=== PATIENT | female | born 1950 | race Caucasian/White ===

== ENCOUNTER → 2017-03-07 | Outpatient (CLI) | payer MEDICARE ==
[2016-01-25 14:30] VITALS: BP 189/72
[~2017-03-07] MED LIST: ACET325T9 PO; ALBU2.5V5 NEB; ALPR0.5T PO; AMLO2.5T2 PO; AZIT250T PO; AZIT500T4 PO; B12/1TAB3 PO; CHOL10003 PO; CLOB15CR TP; CLOT15CR5 TP; CYCL10TA2 PO; DESO15OI3 TP; DICL100G18 TP; DILT120C80 PO; DIPH25CA58 PO; DOCU-109 PO; DOCU50CA9 PO; FAMO-63 PO; FLUT16SP2 NS; FURO-68 PO; GUAI12003 PO; HYDR-2762 PO; HYDR-971 PO; HYDR25TA PO; IPRA3AMP IH; KETO15CR2 TP; MAGN250T10 PO; MELA10CA PO; MONT10TA6 PO; NYST100054 PO; OMEP20CA5 PO; OMEP40CA5 PO; ONDA4TAB7 PO; POTA20TA12 PO; PRED-220 PO; PRED1TAB3 PO; PROAIR HFA8.5 GM IH; SODI44SP NS; TRIA15CR TP
--- NOTE | 2017-03-07 13:10 | KCIC ---
Examination: 2 views of the chest HISTORY: History of fever COMPARISON: 12/11/2015 FINDINGS: The cardiomediastinal silhouette grossly appears unremarkable. Patchy foci of airspace opacities identified in the right upper lobe of the lung.Mild prominent appearing bilateral interstitial lung markings similar to prior exam. Kyphoplasty changes identified in the upper thoracic vertebral level. IMPRESSION: New patchy foci of airspace opacities identified in the right upper lobe of the lung could be pneumonia or atelectasis or atypical infection such as mycobacterial infection or neoplasm. Follow-up to resolution. Electronically signed by: Jim Carson MD (03/07/2017 1:07 PM) [facility]
== END | disposition home or self-care (01) ==
LOC: KCIC 11:44
PROVIDERS: ATTEND Internal Medicine Pulmonary Disease
DX: R91.8 Other nonspecific abnormal finding of lung field (principal); R50.9 Fever, unspecified
CPT/HCPCS: 71020

== ENCOUNTER 2017-03-13 16:52 | Inpatient (IN) | payer MEDICARE ==
[~2017-03-13] VITALS: Ht 160 cm; Wt 93.0 kg
[2017-03-13] MEDS ORDERED: IPRATRPIUM/ALBUTEROL 0.5/2.5MG 3 ML NEBU. NEB ONE (18:00)
[2017-03-13] MEDS ORDERED: IV NORMAL SALINE 500ML BAG 500 ML IV ONE (18:00)
[2017-03-13 18:30] LABS: BASO # 0.1 x10^3/uL (0.0-0.2); BASO % 1 % (0-3); EOS % 6 % (0-3); HEMATOCRIT 39.5 % (36.0-47.0); HEMOGLOBIN 12.7 g/dL (12.0-15.5); LYMPH # 3.2 x10^3/uL (1.0-4.8); LYMPH % 30 % (24-48); MEAN CORPUSCULAR HEMOGLOBIN 26 pg (25-35); MEAN CORPUSCULAR HGB CONC 32 g/dL (31-37); MEAN CORPUSCULAR VOLUME 82 fL (79-100); MONO % 9 % (0-9); NEUT % 54 % (31-73); PLATELET COUNT 532 x10^3/uL (140-400); RED BLOOD COUNT 4.85 x10^6/uL (3.50-5.40); RED CELL DISTRIBUTION WIDTH 14.7 % (11.5-14.5); WHITE BLOOD COUNT 10.7 x10^3/uL (4.0-11.0)
[2017-03-13 18:45] LABS: GFR 55.8; POTASSIUM 3.9 mmol/L (3.5-5.1)
--- NOTE | 2017-03-13 19:06 | PHYS DOC ---
Past Medical History Past Medical History: Anxiety, Arthritis, Asthma, Bronchitis, COPD, Depression , Diabetes-Type II, Fibromyalgia, GERD, Hypertension, Other Additional Past Medical Histor: mood disorder, neuropathy, chronic headache, DJD, chronic back pain, RLS Past Surgical History: Cholecystectomy, Hip Replacement, Tonsillectomy, Tubal ligation, Other Additional Past Surgical Histo: vertebroplasty, knee surgery, hip repair on R, L hip replaced Alcohol Use: None Drug Use: None Adult General Chief Complaint Chief Complaint: SHORTNESS OF BREATH HPI HPI Patient is a 66 year old female presents with complaints of shortness of breath and cough similar to previous episodes of COPD exacerbation. The patient also has a history of asthma is a former smoker. Patient was recently diagnosed with pneumonia. No history of sick contacts. Patient denies any fevers chest pain abdominal pain and neck pain or lower extremity pain or swelling. Review of Systems Review of Systems Constitutional: Denies fever or chills [] HENT: Denies nasal congestion or sore throat [] Respiratory: Yes to cough or shortness of breath [] Cardiovascular: No chest pain GI: Denies abdominal pain, nausea, vomiting, bloody stools or diarrhea [] : Denies dysuria or hematuria [] Musculoskeletal: Denies back pain or joint pain [] Integument: Denies rash or skin lesions [] Neurologic: Denies headache, focal weakness or sensory changes [] All other systems reviewed and found to be negative unless stated otherwise Current Medications Current Medications Current Medications Medications (Trade) Dose Ordered Sig/Sylvester Start Time Stop Time Status Last Admin Dose Admin Albuterol/ Ipratropium (Duoneb) 3 ml 1X ONCE 03/13/17 18:00 03/13/17 18:04 DC 03/13/17 18:12 3 ML Sodium Chloride 500 ml @ 500 mls/hr 1X ONCE 03/13/17 18:00 03/13/17 18:59 DC 03/13/17 18:26 500 MLS/HR Allergies Allergies Allergies Coded Allergies Type Severity Reaction Last Updated Verified Penicillins Allergy Intermediate rash 03/13/17 Yes amoxicillin Allergy Intermediate asthma 03/13/17 Yes carvedilol Allergy Intermediate asthma 03/13/17 Yes cinnamon Allergy Intermediate 03/13/17 Yes clavulanic acid Allergy Intermediate asthma 03/13/17 Yes codeine Allergy Intermediate hallucinations and itching 03/13/17 Yes lemon Allergy Intermediate 03/13/17 No morphine Allergy Intermediate Rash 03/13/17 No olanzapine Allergy Intermediate asthma 03/13/17 Yes perfume Allergy Intermediate 03/13/17 Yes ropinirole Allergy Intermediate asthma 03/13/17 Yes tree nut Allergy Intermediate 03/13/17 Yes doxycycline Adverse Reaction Intermediate nausea 03/13/17 Yes losartan Adverse Reaction Intermediate excessive sleepiness 03/13/17 Yes zolpidem Adverse Reaction Intermediate sleep walking and eating 03/13/17 Yes Uncoded Allergies Type Severity Reaction Last Updated Verified vanilla Allergy Intermediate 02/03/14 Physical Exam Physical Exam Constitutional: Well developed, well nourished, no acute distress, non-toxic appearance. [] HENT: Normocephalic, atraumatic, , oropharynx dry, no oral exudates, nose normal. [] Eyes: EOMI, conjunctiva normal, no discharge. [] Neck: Normal range of motion, no tenderness, supple, no stridor. No LAD, no meningeal signs Cardiovascular: Tachycardia, equal pulses, normal perfusion Lungs & Thorax: Decreased air movement bilaterally, no rales, no rhonchi, no wheezing. Mild tachypnea, mild respiratory distress Abdomen: Bowel sounds normal, soft, no tenderness, no masses, no pulsatile masses. [] Skin: Warm, dry, no erythema, no rash. [] Back: No tenderness, no CVA tenderness. [] Extremities: No tenderness, no cyanosis, no DVT, ROM intact, no edema. [] Neurologic: Alert and oriented X 3, normal motor function, no focal deficits noted. [] Psychologic: Affect normal, judgement normal, mood normal. [] Current Patient Data Vital Signs Vital Signs Date Time Temp Pulse Resp B/P (MAP) Pulse Ox O2 Delivery O2 Flow Rate FiO2 03/13/17 19:05 92 38 137/80 (99) 03/13/17 18:35 94 03/13/17 18:14 Nasal Cannula 3.0 03/13/17 17:00 98.5 98.5 Lab Values Laboratory Tests Test 03/13/17 18:17 White Blood Count 10.7 x10^3/uL (4.0-11.0) Red Blood Count 4.85 x10^6/uL (3.50-5.40) Hemoglobin 12.7 g/dL (12.0-15.5) Hematocrit 39.5 % (36.0-47.0) Mean Corpuscular Volume 82 fL (79-100) Mean Corpuscular Hemoglobin 26 pg (25-35) Mean Corpuscular Hemoglobin Concent 32 g/dL (31-37) Red Cell Distribution Width 14.7 % (11.5-14.5) H Platelet Count 532 x10^3/uL (140-400) H Neutrophils (%) (Auto) 54 % (31-73) Lymphocytes (%) (Auto) 30 % (24-48) Monocytes (%) (Auto) 9 % (0-9) Eosinophils (%) (Auto) 6 % (0-3) H Basophils (%) (Auto) 1 % (0-3) Neutrophils # (Auto) 5.7 x10^3uL (1.8-7.7) Lymphocytes # (Auto) 3.2 x10^3/uL (1.0-4.8) Monocytes # (Auto) 0.9 x10^3/uL (0.0-1.1) Eosinophils # (Auto) 0.7 x10^3/uL (0.0-0.7) Basophils # (Auto) 0.1 x10^3/uL (0.0-0.2) Sodium Level 142 mmol/L (136-145) Potassium Level 3.9 mmol/L (3.5-5.1) Chloride Level 102 mmol/L (98-107) Carbon Dioxide Level 31 mmol/L (21-32) Anion Gap 9 (6-14) Blood Urea Nitrogen 18 mg/dL (7-20) Creatinine 1.0 mg/dL (0.6-1.0) Estimated GFR (Cockcroft-Gault) 55.8 Glucose Level 101 mg/dL (70-99) H Calcium Level 10.0 mg/dL (8.5-10.1) Laboratory Tests 03/13/17 18:17 Laboratory Tests 03/13/17 18:17 EKG EKG [] Radiology/Procedures Radiology/Procedures [] Course & Med Decision Making Course & Med Decision Making Pertinent Labs and Imaging studies reviewed. (See chart for details) Patient feels improved, tachypnea has decrease, patient saturating 96%. Patient' s concerns that she will be able to take her Levaquin for her pneumonia due to vomiting and request as I discussed her presentation with her primary care provider. That was done in the PCP was to admit the patient for observation. [] Dragon Disclaimer Dragon Disclaimer This electronic medical record was generated, in whole or in part, using a voice recognition dictation system. Departure Departure Impression: Primary Impression: Pneumonia Additional Impression: Dehydration Disposition: ADMITTED INPATIENT Admitting Physician: Yimi Carnes Condition: STABLE Referrals: YIMI CARNES MD (PCP) Problem Qualifiers Nahum EVANS MD Mar 13, 2017 19:06
[2017-03-13] MEDS ORDERED: ONDANSETRON PF 4 MG/2 ML VIAL. IV PRN (20:00)
[2017-03-13] MEDS ORDERED: METOCLOPRAMIDE HCL 10 MG/2 ML VIAL. IV ONE (20:00)
[2017-03-13] MEDS ORDERED: IPRATRPIUM/ALBUTEROL 0.5/2.5MG 3 ML NEBU. NEB SCH (20:00)
[2017-03-13] MEDS: ACETAMINOPHEN 325 MG TABLET. PO PRN (20:11)
[2017-03-13 21:00] VITALS: BP_SYST 131; BP_SYST 145; BP_DIAS 49; BP_DIAS 71
[2017-03-13 21:20] VITALS: BP 131/71
[2017-03-13] MEDS ORDERED: NYST100054 PO (22:40)
[2017-03-13] MEDS ORDERED: IPRA0.2S5 NEB (22:40)
[2017-03-13] MEDS ORDERED: VENTOLIN HFA18 GM INH (22:40)
[2017-03-13] MEDS ORDERED: ACET-804 PO (22:40)
[2017-03-13] MEDS ORDERED: GUAI12003 PO (22:40)
[2017-03-13] MEDS ORDERED: MELA3TAB2 PO (22:40)
[2017-03-13 22:59] VITALS: BP 131/59
[2017-03-13] MEDS ORDERED: INFLUENZA VAX SCREEN BY RX. MC ONE (23:00)
[2017-03-14] MEDS ORDERED: IPRA3AMP NEB (01:10)
[2017-03-14] MEDS ORDERED: predniSONE 10 MG TABLET PO PRN (02:30)
[2017-03-14] MEDS ORDERED: CLOTRIMAZOLE/BETAMETH 1%-0.05% TOPICAL CREAM 15GM TUBE. TP PRN (02:30)
[2017-03-14] MEDS ORDERED: HYDROcodone/APAP 7.5/325MG 1 TAB TABLET PO PRN (02:30)
[2017-03-14] MEDS ORDERED: TRIAMCINOLONE ACETONIDE TP PRN (02:30)
[2017-03-14] MEDS ORDERED: CYCLOBENZAPRINE 10 MG TABLET. PO PRN (02:30)
[2017-03-14] MEDS ORDERED: ALBUTEROL SULFATE 2.5 MG/3 ML NEBU. NEB PRN (02:45)
[2017-03-14] MEDS: ALPRAZolam 0.5 MG TABLET PO PRN ×3 (02:58→21:05)
[2017-03-14 03:00] VITALS: BP 130/58
[2017-03-14] MEDS ORDERED: SODIUM CHLORIDE 0.65% NASAL SPRAY 45ML BOTTLE. NS PRN (04:00)
[2017-03-14] MEDS ORDERED: NON FORMULARY ITEM (Albuterol Sulfate (Ventolin Hfa Inhaler) 2 PUFF) INH SCH (04:00)
[2017-03-14 05:44] LABS: BASO # 0.1 x10^3/uL (0.0-0.2); BASO % 2 % (0-3); EOS % 14 % (0-3); HEMATOCRIT 35.3 % (36.0-47.0); HEMOGLOBIN 11.7 g/dL (12.0-15.5); LYMPH # 2.8 x10^3/uL (1.0-4.8); LYMPH % 37 % (24-48); MEAN CORPUSCULAR HEMOGLOBIN 27 pg (25-35); MEAN CORPUSCULAR HGB CONC 33 g/dL (31-37); MEAN CORPUSCULAR VOLUME 80 fL (79-100); MONO % 12 % (0-9); NEUT % 35 % (31-73); PLATELET COUNT 485 x10^3/uL (140-400); RED CELL DISTRIBUTION WIDTH 14.8 % (11.5-14.5); WHITE BLOOD COUNT 7.5 x10^3/uL (4.0-11.0)
[2017-03-14 06:24] LABS: CALCIUM 9.3 mg/dL (8.5-10.1); CREATININE 0.9 mg/dL (0.6-1.0); POTASSIUM 3.4 mmol/L (3.5-5.1)
[2017-03-14 07:00] VITALS: BP 123/80
[2017-03-14] MEDS: IPRATRPIUM/ALBUTEROL 0.5/2.5MG 3 ML NEBU. NEB SCH ×4 (07:36→19:51)
--- NOTE | 2017-03-14 07:38 | RAD ---
EXAM: Chest one view. HISTORY: Chronic obstructive pulmonary disease, shortness of breath. COMPARISON: 03/07/2017. FINDINGS: A frontal view of the chest is obtained. Airspace opacities in the right upper lobe have improved but not completely resolved. Hyperinflation is consistent with chronic obstructive pulmonary disease. Prominence of the right peritracheal stripe is stable. There is no pneumothorax or pleural effusion. The heart is not enlarged. There are atherosclerotic calcifications of the aorta. There is a small hiatal hernia. IMPRESSION: 1. Resolving right upper lobe infiltrates. Prominence of the right peritracheal stripe persists. Follow-up to complete resolution is recommended to exclude an underlying lesion. 2. Chronic obstructive pulmonary disease. 3. Small hiatal hernia.
[2017-03-14] MEDS: AZITHROMYCIN 250 MG TABLET. PO SCH (08:38)
[2017-03-14] MEDS: POTASSIUM CHLORIDE 20 MEQ TABLET.ER. PO SCH (08:38)
[2017-03-14] MEDS: FUROSEMIDE 40 MG TABLET. PO SCH (08:38)
[2017-03-14] MEDS: MONTELUKAST SODIUM 10 MG TABLET. PO SCH (08:38)
[2017-03-14] MEDS: PANTOPRAZOLE 40 MG TABLET.DR. PO SCH (08:38)
[2017-03-14] MEDS: DICLOFENAC SODIUM 1% TOPICAL GEL 100GM TUBE. TP SCH ×4 (08:39→21:00)
[2017-03-14] MEDS: FLUTICASONE 50MCG/NASAL SPRAY 16GM BOTTLE. NS SCH (08:40)
[2017-03-14] MEDS ORDERED: FLU VACC QS2017-18 (36MOS+)/PF 0.5 ML SYRINGE. VAX IM ONE (09:00)
[2017-03-14] MEDS ORDERED: CLOBETASOL EMOLLIENT 0.05% TOPICAL CREAM 15GM TUBE. TP PRN (09:00)
[2017-03-14] MEDS ORDERED: methylPREDNISolone SOD SUCC PF 125 MG/2 ML VIAL. IV ONE (09:15)
[2017-03-14] MEDS: ACETAMINOPHEN 325 MG TABLET. PO PRN ×2 (09:15→15:27)
--- NOTE | 2017-03-14 09:30 | PDOC ---
Infectious Disease Note Vital Sign Vital Signs Vital Signs Date Time Temp Pulse Resp B/P (MAP) Pulse Ox O2 Delivery O2 Flow Rate FiO2 03/14/17 07:42 Nasal Cannula 3.0 03/14/17 07:37 100 03/14/17 07:00 97.6 84 18 123/80 (94) 97.6 Labs Lab Laboratory Tests Test 03/13/17 18:17 03/14/17 05:00 03/14/17 05:30 White Blood Count 10.7 x10^3/uL (4.0-11.0) 7.5 x10^3/uL (4.0-11.0) Red Blood Count 4.85 x10^6/uL (3.50-5.40) 4.40 x10^6/uL (3.50-5.40) Hemoglobin 12.7 g/dL (12.0-15.5) 11.7 g/dL (12.0-15.5) Hematocrit 39.5 % (36.0-47.0) 35.3 % (36.0-47.0) Mean Corpuscular Volume 82 fL (79-100) 80 fL (79-100) Mean Corpuscular Hemoglobin 26 pg (25-35) 27 pg (25-35) Mean Corpuscular Hemoglobin Concent 32 g/dL (31-37) 33 g/dL (31-37) Red Cell Distribution Width 14.7 % (11.5-14.5) 14.8 % (11.5-14.5) Platelet Count 532 x10^3/uL (140-400) 485 x10^3/uL (140-400) Neutrophils (%) (Auto) 54 % (31-73) 35 % (31-73) Lymphocytes (%) (Auto) 30 % (24-48) 37 % (24-48) Monocytes (%) (Auto) 9 % (0-9) 12 % (0-9) Eosinophils (%) (Auto) 6 % (0-3) 14 % (0-3) Basophils (%) (Auto) 1 % (0-3) 2 % (0-3) Neutrophils # (Auto) 5.7 x10^3uL (1.8-7.7) 2.6 x10^3uL (1.8-7.7) Lymphocytes # (Auto) 3.2 x10^3/uL (1.0-4.8) 2.8 x10^3/uL (1.0-4.8) Monocytes # (Auto) 0.9 x10^3/uL (0.0-1.1) 0.9 x10^3/uL (0.0-1.1) Eosinophils # (Auto) 0.7 x10^3/uL (0.0-0.7) 1.0 x10^3/uL (0.0-0.7) Basophils # (Auto) 0.1 x10^3/uL (0.0-0.2) 0.1 x10^3/uL (0.0-0.2) Sodium Level 142 mmol/L (136-145) 144 mmol/L (136-145) Potassium Level 3.9 mmol/L (3.5-5.1) 3.4 mmol/L (3.5-5.1) Chloride Level 102 mmol/L (98-107) 106 mmol/L (98-107) Carbon Dioxide Level 31 mmol/L (21-32) 31 mmol/L (21-32) Anion Gap 9 (6-14) 7 (6-14) Blood Urea Nitrogen 18 mg/dL (7-20) 14 mg/dL (7-20) Creatinine 1.0 mg/dL (0.6-1.0) 0.9 mg/dL (0.6-1.0) Estimated GFR (Cockcroft-Gault) 55.8 63.0 Glucose Level 101 mg/dL (70-99) 101 mg/dL (70-99) Calcium Level 10.0 mg/dL (8.5-10.1) 9.3 mg/dL (8.5-10.1) Objective Assessment Pneumonia Bronchiectasis COPD Asthma Plan Plan of Care amie carlton ct chest sputum culture sputum for afb NADIA MAYNARD MD Mar 14, 2017 09:30
--- NOTE | 2017-03-14 09:36 | PDOC ---
Provider Note Provider Note Patient seen. See History and Physical. The patient was seen and examined by me. Chart reviewed and plan of care formulated. Discussed with, reviewed and agree with SENIOR SQL DBA's notes, plan of care and orders with modifications as necessary. For more details regarding further plans, please refer to the orders. YIMI CARNES MD Mar 14, 2017 09:35
[2017-03-14] MEDS ORDERED: IOHEXOL 300 MG/ML 75 ML VIAL IV ONE (10:15)
[2017-03-14] MEDS ORDERED: CONTRAST GIVEN MC PRN (10:15)
[2017-03-14 11:00] VITALS: BP 130/72
[2017-03-14] MEDS: INSULIN ASPART 300 UNITS/3 ML INSULN.PEN SQ SCH ×2 (11:09→16:50)
--- NOTE | 2017-03-14 11:41 | PDOC ---
PULMONARY PROGRESS NOTES Vitals Vital Signs Date Time Temp Pulse Resp B/P (MAP) Pulse Ox O2 Delivery O2 Flow Rate FiO2 03/14/17 11:00 97.6 79 18 130/72 (91) 96 Nasal Cannula 3.0 97.6 General: Alert, Oriented X4 Lungs: Other Cardiovascular: S1, S2 Abdomen: Soft, Non-tender Extremities: No Edema Labs Laboratory Tests Test 03/13/17 18:17 03/14/17 05:00 03/14/17 05:30 03/14/17 10:22 White Blood Count 10.7 x10^3/uL (4.0-11.0) 7.5 x10^3/uL (4.0-11.0) Red Blood Count 4.85 x10^6/uL (3.50-5.40) 4.40 x10^6/uL (3.50-5.40) Hemoglobin 12.7 g/dL (12.0-15.5) 11.7 g/dL (12.0-15.5) Hematocrit 39.5 % (36.0-47.0) 35.3 % (36.0-47.0) Mean Corpuscular Volume 82 fL (79-100) 80 fL (79-100) Mean Corpuscular Hemoglobin 26 pg (25-35) 27 pg (25-35) Mean Corpuscular Hemoglobin Concent 32 g/dL (31-37) 33 g/dL (31-37) Red Cell Distribution Width 14.7 % (11.5-14.5) 14.8 % (11.5-14.5) Platelet Count 532 x10^3/uL (140-400) 485 x10^3/uL (140-400) Neutrophils (%) (Auto) 54 % (31-73) 35 % (31-73) Lymphocytes (%) (Auto) 30 % (24-48) 37 % (24-48) Monocytes (%) (Auto) 9 % (0-9) 12 % (0-9) Eosinophils (%) (Auto) 6 % (0-3) 14 % (0-3) Basophils (%) (Auto) 1 % (0-3) 2 % (0-3) Neutrophils # (Auto) 5.7 x10^3uL (1.8-7.7) 2.6 x10^3uL (1.8-7.7) Lymphocytes # (Auto) 3.2 x10^3/uL (1.0-4.8) 2.8 x10^3/uL (1.0-4.8) Monocytes # (Auto) 0.9 x10^3/uL (0.0-1.1) 0.9 x10^3/uL (0.0-1.1) Eosinophils # (Auto) 0.7 x10^3/uL (0.0-0.7) 1.0 x10^3/uL (0.0-0.7) Basophils # (Auto) 0.1 x10^3/uL (0.0-0.2) 0.1 x10^3/uL (0.0-0.2) Sodium Level 142 mmol/L (136-145) 144 mmol/L (136-145) Potassium Level 3.9 mmol/L (3.5-5.1) 3.4 mmol/L (3.5-5.1) Chloride Level 102 mmol/L (98-107) 106 mmol/L (98-107) Carbon Dioxide Level 31 mmol/L (21-32) 31 mmol/L (21-32) Anion Gap 9 (6-14) 7 (6-14) Blood Urea Nitrogen 18 mg/dL (7-20) 14 mg/dL (7-20) Creatinine 1.0 mg/dL (0.6-1.0) 0.9 mg/dL (0.6-1.0) Estimated GFR (Cockcroft-Gault) 55.8 63.0 Glucose Level 101 mg/dL (70-99) 101 mg/dL (70-99) Calcium Level 10.0 mg/dL (8.5-10.1) 9.3 mg/dL (8.5-10.1) Glucose (Fingerstick) 94 mg/dL (70-99) Laboratory Tests Test 03/13/17 18:17 03/14/17 05:00 03/14/17 05:30 03/14/17 10:22 White Blood Count 10.7 x10^3/uL (4.0-11.0) 7.5 x10^3/uL (4.0-11.0) Red Blood Count 4.85 x10^6/uL (3.50-5.40) 4.40 x10^6/uL (3.50-5.40) Hemoglobin 12.7 g/dL (12.0-15.5) 11.7 g/dL (12.0-15.5) Hematocrit 39.5 % (36.0-47.0) 35.3 % (36.0-47.0) Mean Corpuscular Volume 82 fL (79-100) 80 fL (79-100) Mean Corpuscular Hemoglobin 26 pg (25-35) 27 pg (25-35) Mean Corpuscular Hemoglobin Concent 32 g/dL (31-37) 33 g/dL (31-37) Red Cell Distribution Width 14.7 % (11.5-14.5) 14.8 % (11.5-14.5) Platelet Count 532 x10^3/uL (140-400) 485 x10^3/uL (140-400) Neutrophils (%) (Auto) 54 % (31-73) 35 % (31-73) Lymphocytes (%) (Auto) 30 % (24-48) 37 % (24-48) Monocytes (%) (Auto) 9 % (0-9) 12 % (0-9) Eosinophils (%) (Auto) 6 % (0-3) 14 % (0-3) Basophils (%) (Auto) 1 % (0-3) 2 % (0-3) Neutrophils # (Auto) 5.7 x10^3uL (1.8-7.7) 2.6 x10^3uL (1.8-7.7) Lymphocytes # (Auto) 3.2 x10^3/uL (1.0-4.8) 2.8 x10^3/uL (1.0-4.8) Monocytes # (Auto) 0.9 x10^3/uL (0.0-1.1) 0.9 x10^3/uL (0.0-1.1) Eosinophils # (Auto) 0.7 x10^3/uL (0.0-0.7) 1.0 x10^3/uL (0.0-0.7) Basophils # (Auto) 0.1 x10^3/uL (0.0-0.2) 0.1 x10^3/uL (0.0-0.2) Sodium Level 142 mmol/L (136-145) 144 mmol/L (136-145) Potassium Level 3.9 mmol/L (3.5-5.1) 3.4 mmol/L (3.5-5.1) Chloride Level 102 mmol/L (98-107) 106 mmol/L (98-107) Carbon Dioxide Level 31 mmol/L (21-32) 31 mmol/L (21-32) Anion Gap 9 (6-14) 7 (6-14) Blood Urea Nitrogen 18 mg/dL (7-20) 14 mg/dL (7-20) Creatinine 1.0 mg/dL (0.6-1.0) 0.9 mg/dL (0.6-1.0) Estimated GFR (Cockcroft-Gault) 55.8 63.0 Glucose Level 101 mg/dL (70-99) 101 mg/dL (70-99) Calcium Level 10.0 mg/dL (8.5-10.1) 9.3 mg/dL (8.5-10.1) Glucose (Fingerstick) 94 mg/dL (70-99) Medications Active Scripts Medications Dose Route/Sig Max Daily Dose Days Date Category Duoneb 0.5-3(2.5) Mg/3 Ml (Albuterol/Ipratropium) 3 Ml Ampul.neb 3 Ml NEB QID 03/14/17 Reported Ventolin Hfa Inhaler (Albuterol Sulfate) 18 Gm Hfa.aer.ad 2 Puff INH Q4HRS 03/13/17 Reported Nystatin 100,000 Unit/1 Ml Oral.susp 100,000 Unit PO 03/13/17 Reported Mucinex (Guaifenesin) 1,200 Mg Tbmp.12hr 1,200 Mg PO PRN BID PRN 03/13/17 Reported Arthritis Pain Relief (Acetaminophen) 650 Mg Tablet.er 650 Mg PO 03/13/17 Reported Melatonin 3 Mg Tablet 10 Mg PO 03/13/17 Reported Hydroxyzine Hcl 25 Mg Tablet 1-2 Tab PO TID 01/24/15 Rx Xanax (Alprazolam) 0.5 Mg Tablet 0.5 Mg PO PRN Q6HRS PRN 01/24/15 Rx Hydrocodone-Apap 7.5-325 (Hydrocodone Bit/Acetaminophen) 1 Each Tablet 1 Tab PO PRN Q6HRS PRN 01/24/15 Rx Zithromax (Azithromycin) 250 Mg Tablet 250 Mg PO DAILY 01/24/15 Rx Pepcid (Famotidine) 20 Mg Tablet 40 Mg PO HS 01/24/15 Rx Omeprazole 40 Mg Capsule.dr 40 Mg PO DAILY 01/24/15 Rx Zofran (Ondansetron Hcl) 4 Mg Tablet 4 Mg PO BID PRN 01/24/15 Rx Voltaren (Diclofenac Sodium) 100 Gm Gel..gram. 1 Gm TP QID 02/02/14 Reported Singulair Tablet (Montelukast Sodium) 10 Mg Tablet 1 Tab PO DAILY 02/02/14 Reported Deep Sea (Sodium Chloride) 44 Ml Kiester 2 Kiester NS Q4HRS 02/02/14 Reported Colace (Docusate Sodium) 100 Mg Capsule 1 Cap PO BID PRN 02/02/14 Reported Flonase (Fluticasone Propionate) 16 Gm Kiester.susp 2 Kiester NS DAILY 02/02/14 Reported Clotrimazole-Betamethasone Crm (Clotrimazole/Betamethasone Dip) 15 Gm Cream..g. 1 Latanya TP PRN PRN 02/02/14 Reported Triamcinolone Acetonide 0.5% Cream (Triamcinolone Acetonide) 15 Gm Cream..g. 1 Latanya TP PRN PRN 02/02/14 Reported Clobetasol Propionate 15 Gm Cream..g. 1 Latanya TP PRN PRN 02/02/14 Reported Prednisone 10 Mg Tablet 10 Mg PO DAILY PRN 02/02/14 Reported Cyclobenzaprine Hcl 10 Mg Tablet 1 Tab PO TID PRN 02/02/14 Reported Lasix (Furosemide) 40 Mg Tablet 1 Tab PO DAILY 02/02/14 Reported Potassium Chloride 20 Meq Tab.er.prt 20 Meq PO DAILY 02/02/14 Reported Impression . FULL NOTE DICTATED PT FAILED OUTPT THERAPY WAS SEEN IN OFFICE TWICE AGREE WITH CURRENT RX CRISTINO KRUGER MD Mar 14, 2017 11:41
--- NOTE | 2017-03-14 11:56 | RAD ---
Examination: CT chest with IV contrast History: History of shortness of breath, lung nodule Comparison: 01/19/2015. Technique: Axial CT images of the chest were performed with IV contrast. Coronal and sagittal reformats were performed. PQRS Compliance Statement: One or more of the following individualized dose reduction techniques were utilized for this examination: 1. Automated exposure control 2. Adjustment of the mA and/or kV according to patient size 3. Use of iterative reconstruction technique Findings: The visualized thyroid gland grossly appears unremarkable. The central airways are patent. Few prominent mediastinal lymph nodes identified with the largest measuring 1.4 cm in the pretracheal region. The heart size grossly appears unremarkable. Coronary artery calcifications identified. Multiple patchy airspace opacities identified in the right upper lobe of the lung. There is a focus of consolidation or mass identified in the right apical lung measuring 3.4 x 2.8 cm. There is another focus of consolidation identified in the right apical lung posteriorly measuring 2.8 cm. Scattered patchy airspace opacities identified in the bilateral lungs involving the right upper lobe, left upper lobe, left lower lobe of the lung likely atelectasis or infiltrate. Few tree-in-bud airspace opacities identified in the peripheral aspect of the right upper, middle and lower lung lobes. No evidence of pleural effusion or pneumothorax. The visualized liver, spleen, adrenals grossly appears unremarkable Cholecystectomy clips are identified. Tiny cysts or cystic lesion identified in the left kidney measuring 3 mm. Compression changes of the midthoracic vertebral bodies with kyphoplasty changes again identified. Impression: 1. Moderate sized foci of of consolidation or less likely mass identified in the right upper lobe of the lung. Differential includes pneumonia or atypical infection or less likely neoplasm Follow-up to resolution. 2. Scattered foci of airspace opacities identified in the right upper lobe, left upper lobe, left lower lobe of the lung with tree-in-bud airspace opacities identified in the right lung could be interstitial changes or atypical infection. 3. Coronary artery calcifications. 4. Mild prominent appearing mediastinal lymph nodes probably reactive.
[2017-03-14] MEDS ORDERED: methylPREDNISolone SOD SUCC PF 125 MG/2 ML VIAL. IV SCH (14:00)
[2017-03-14 15:00] VITALS: BP 106/64
[2017-03-14] MEDS: ONDANSETRON PF 4 MG/2 ML VIAL. IV PRN ×2 (15:27→21:04)
--- NOTE | 2017-03-14 16:05 | PDOC1 ---
HISTORY AND PHYSICAL Chief Complaint Chief Complaint This 66 year old female has been admitted with a chief complaint of pneumonia. She was seen in Dr. Nunez on 03/05 (as reported on 03/11 to this PROTECTION AGENT ) and then presented to the office on 03/11/17. She reported that Dr. Nunez was treating her for pneumonia and she did not know whether to take augmentin or levaquin. Review of her allergies: levaquin n/v. A trial of Levaquin 500mg oral for 7 days was ordered. Her WPFs were averaging between 160-250. Cough was productive yellow. She was experiencing SOA acute on chronic despite Sats >90%. In addition she was to continue her nebulizer treatments QID and prn. Begin Mucinex 1200mg bid. She contacted the office on 03/12/17 with report of severe n /v with levaquin. Attempts to contact her=did not answer phone. in office for appt and instructed him to take Lily to [facility] for evaluation. [facility] was advised of out patient treatment failure. She contacted this PROTECTION AGENT on 03/13/17 and reported she did not want to be admitted and that she thought she was tolerating the Levaquin better. She then presented to the ED later through the day. She is admitted for out patient treatment failure for pneumonia. . Past Medical History Cardiovascular: HTN, Hyperlipidemia Pulmonary: Asthma, COPD (chronic respiratory failure O2 dependent), Other (h/o pulmonary nodule follow by CT regularly ) CENTRAL NERVOUS SYSTEM: Other GI: GERD, Other (gastroparesis, HH ) Psych: Anxiety, Bipolar (BiPolar I ), Depression Musculoskeletal: Other (mensical tear : R lagteral and R medial knee; CT syndrome, chronic back pain with h/o compression fracture and vertebroplasty; DDD ) Rheumatologic: Fibromyalgia Renal/: Chronic renal insuff (CKD II ) Endocrine: Diabetes (Type II diet control), Osteoporosis Past Surgical History PSH vertebroplasty T6 Past Surgical History: Breast Biopsy (2007 neg), Cholecystectomy, Total hip replacement (Left), Total knee replacement (May 2011), Tubal Ligation, Tonsillectomy (adenoidectomy ) Past Family History Family History: Coronary Artery Disease Past Social History PSH , h/o smoking quit 2005 neg ETOH or illicit drug use. Review of Symptoms Review of Symptoms A 14 point ROS was completed with the following noted as positive: cough, shortness of breath with WPF 150 in ED, wheezing, Other systems reviewed and negative. Medications Medications reviewed and reconciled. Allergy Allergies Coded Allergies Type Severity Reaction Last Updated Verified Penicillins Allergy Intermediate rash 03/13/17 Yes amoxicillin Allergy Intermediate asthma 03/13/17 Yes carvedilol Allergy Intermediate asthma 03/13/17 Yes cinnamon Allergy Intermediate 03/13/17 Yes clavulanic acid Allergy Intermediate asthma 03/13/17 Yes codeine Allergy Intermediate hallucinations and itching 03/13/17 Yes lemon Allergy Intermediate 03/13/17 No morphine Allergy Intermediate Rash 03/13/17 No olanzapine Allergy Intermediate asthma 03/13/17 Yes perfume Allergy Intermediate 03/13/17 Yes ropinirole Allergy Intermediate asthma 03/13/17 Yes tree nut Allergy Intermediate 03/13/17 Yes doxycycline Adverse Reaction Intermediate nausea 03/13/17 Yes losartan Adverse Reaction Intermediate excessive sleepiness 03/13/17 Yes zolpidem Adverse Reaction Intermediate sleep walking and eating 03/13/17 Yes Uncoded Allergies Type Severity Reaction Last Updated Verified vanilla Allergy Intermediate 02/03/14 Physical Exam Physical Exam General appearance - alert ill appearing, and in mod distress Mental Status - alert, oriented to person, place, and time, moderate distress Head - normal Chest - decreased through out, coarse R ant, SOA with movement in bed, talking Heart - S1 and S2 normal Abdomen - soft, nontender, nondistended, obese, BS + Neurological - no acute focal neurological deficits Musculoskeletal - no muscular tenderness noted Extremities - no pedal edema Skin - warm and dry VTE Prophylaxis Ordered VTE Prophylaxis Devices: Yes VTE Pharmacological Prophylaxi: No Assessment Labs Laboratory Tests Test 03/13/17 18:17 03/14/17 05:00 03/14/17 05:30 03/14/17 10:22 White Blood Count 10.7 x10^3/uL (4.0-11.0) 7.5 x10^3/uL (4.0-11.0) Red Blood Count 4.85 x10^6/uL (3.50-5.40) 4.40 x10^6/uL (3.50-5.40) Hemoglobin 12.7 g/dL (12.0-15.5) 11.7 g/dL (12.0-15.5) Hematocrit 39.5 % (36.0-47.0) 35.3 % (36.0-47.0) Mean Corpuscular Volume 82 fL (79-100) 80 fL (79-100) Mean Corpuscular Hemoglobin 26 pg (25-35) 27 pg (25-35) Mean Corpuscular Hemoglobin Concent 32 g/dL (31-37) 33 g/dL (31-37) Red Cell Distribution Width 14.7 % (11.5-14.5) 14.8 % (11.5-14.5) Platelet Count 532 x10^3/uL (140-400) 485 x10^3/uL (140-400) Neutrophils (%) (Auto) 54 % (31-73) 35 % (31-73) Lymphocytes (%) (Auto) 30 % (24-48) 37 % (24-48) Monocytes (%) (Auto) 9 % (0-9) 12 % (0-9) Eosinophils (%) (Auto) 6 % (0-3) 14 % (0-3) Basophils (%) (Auto) 1 % (0-3) 2 % (0-3) Neutrophils # (Auto) 5.7 x10^3uL (1.8-7.7) 2.6 x10^3uL (1.8-7.7) Lymphocytes # (Auto) 3.2 x10^3/uL (1.0-4.8) 2.8 x10^3/uL (1.0-4.8) Monocytes # (Auto) 0.9 x10^3/uL (0.0-1.1) 0.9 x10^3/uL (0.0-1.1) Eosinophils # (Auto) 0.7 x10^3/uL (0.0-0.7) 1.0 x10^3/uL (0.0-0.7) Basophils # (Auto) 0.1 x10^3/uL (0.0-0.2) 0.1 x10^3/uL (0.0-0.2) Sodium Level 142 mmol/L (136-145) 144 mmol/L (136-145) Potassium Level 3.9 mmol/L (3.5-5.1) 3.4 mmol/L (3.5-5.1) Chloride Level 102 mmol/L (98-107) 106 mmol/L (98-107) Carbon Dioxide Level 31 mmol/L (21-32) 31 mmol/L (21-32) Anion Gap 9 (6-14) 7 (6-14) Blood Urea Nitrogen 18 mg/dL (7-20) 14 mg/dL (7-20) Creatinine 1.0 mg/dL (0.6-1.0) 0.9 mg/dL (0.6-1.0) Estimated GFR (Cockcroft-Gault) 55.8 63.0 Glucose Level 101 mg/dL (70-99) 101 mg/dL (70-99) Calcium Level 10.0 mg/dL (8.5-10.1) 9.3 mg/dL (8.5-10.1) Glucose (Fingerstick) 94 mg/dL (70-99) Laboratory Tests Test 03/13/17 18:17 03/14/17 05:00 03/14/17 05:30 03/14/17 10:22 White Blood Count 10.7 x10^3/uL (4.0-11.0) 7.5 x10^3/uL (4.0-11.0) Red Blood Count 4.85 x10^6/uL (3.50-5.40) 4.40 x10^6/uL (3.50-5.40) Hemoglobin 12.7 g/dL (12.0-15.5) 11.7 g/dL (12.0-15.5) Hematocrit 39.5 % (36.0-47.0) 35.3 % (36.0-47.0) Mean Corpuscular Volume 82 fL (79-100) 80 fL (79-100) Mean Corpuscular Hemoglobin 26 pg (25-35) 27 pg (25-35) Mean Corpuscular Hemoglobin Concent 32 g/dL (31-37) 33 g/dL (31-37) Red Cell Distribution Width 14.7 % (11.5-14.5) 14.8 % (11.5-14.5) Platelet Count 532 x10^3/uL (140-400) 485 x10^3/uL (140-400) Neutrophils (%) (Auto) 54 % (31-73) 35 % (31-73) Lymphocytes (%) (Auto) 30 % (24-48) 37 % (24-48) Monocytes (%) (Auto) 9 % (0-9) 12 % (0-9) Eosinophils (%) (Auto) 6 % (0-3) 14 % (0-3) Basophils (%) (Auto) 1 % (0-3) 2 % (0-3) Neutrophils # (Auto) 5.7 x10^3uL (1.8-7.7) 2.6 x10^3uL (1.8-7.7) Lymphocytes # (Auto) 3.2 x10^3/uL (1.0-4.8) 2.8 x10^3/uL (1.0-4.8) Monocytes # (Auto) 0.9 x10^3/uL (0.0-1.1) 0.9 x10^3/uL (0.0-1.1) Eosinophils # (Auto) 0.7 x10^3/uL (0.0-0.7) 1.0 x10^3/uL (0.0-0.7) Basophils # (Auto) 0.1 x10^3/uL (0.0-0.2) 0.1 x10^3/uL (0.0-0.2) Sodium Level 142 mmol/L (136-145) 144 mmol/L (136-145) Potassium Level 3.9 mmol/L (3.5-5.1) 3.4 mmol/L (3.5-5.1) Chloride Level 102 mmol/L (98-107) 106 mmol/L (98-107) Carbon Dioxide Level 31 mmol/L (21-32) 31 mmol/L (21-32) Anion Gap 9 (6-14) 7 (6-14) Blood Urea Nitrogen 18 mg/dL (7-20) 14 mg/dL (7-20) Creatinine 1.0 mg/dL (0.6-1.0) 0.9 mg/dL (0.6-1.0) Estimated GFR (Cockcroft-Gault) 55.8 63.0 Glucose Level 101 mg/dL (70-99) 101 mg/dL (70-99) Calcium Level 10.0 mg/dL (8.5-10.1) 9.3 mg/dL (8.5-10.1) Glucose (Fingerstick) 94 mg/dL (70-99) Plan Plan 1. pneumonia gram neg gram + presentation out patient treatment failure 2. COPD with exacerbation 3. GERD 4. A/C respiratory failure with COPD, asthma, oxygen dependent 5. hypokalemia 6. hyperlipidemia 7. Bipolar I disorder 8. chronic carpal tunnel syndrome 9. DM II diet control 10. fibromyalgia 11. gastroparesis 12. Hiatal Hernia 13. osteoporosis 14. allergic rhinitis 15. DDD LS 16. depression PLAN: pneumonia- pulmonary consult; ID consult: rocephin-zithromax; nebulizer treatment; mucinex 1200mg bid; COPD/asthma exacerbation -IV solumedrol 125mgx 1, then 80mg IV q8hr DM II-SSI for potential hyperglcemia steroid induced DVT/GI prophylaxis -SCD/PPI For more details regarding further plans, please refer to the orders. NEENA FABIAN APRN Mar 14, 2017 16:05
[2017-03-14] MEDS ORDERED: METOCLOPRAMIDE HCL 10 MG/2 ML VIAL. IV PRN (16:30)
[2017-03-14] MEDS ORDERED: MAG HYDROX/ALUMINUM HYD/SIMETH 30 ML ORAL.SUSP PO PRN (16:30)
[2017-03-14 19:00] VITALS: BP 144/89
[2017-03-14 23:00] VITALS: BP 143/70
--- NOTE | 2017-03-15 02:49 | CONS ---
DATE OF CONSULTATION: 03/14/2017 REQUESTING PHYSICIAN: Dr. Samuel. REASON FOR CONSULTATION: Pneumonia and multiple antibiotic allergies. HISTORY OF PRESENT ILLNESS: This is a 66-year-old female with a history of bronchiectasis who was actually diagnosed outpatient with pneumonia. The patient had difficulty picking antibiotics because of multiple allergies, although Levaquin was tried, which has caused vomiting in the past and she took 2 doses and started vomiting. Hence, she came in. The patient is currently comfortable. The patient has had low-grade fever, she says. She always coughs and coughs a lot and produces sputum, but this time right now, she is not able to produce any. The patient denies any nausea, vomiting, diarrhea, chest pain, shortness of breath, abdominal pain, urinary symptoms or bowel symptoms. PAST MEDICAL AND SURGICAL HISTORY: Positive for bronchiectasis. The patient also has asthma, bronchitis, COPD, diabetes, gastroesophageal reflux disease, hypertension, fibromyalgia, neuropathy, chronic back problems, chronic headaches, has had vertebroplasty, knee surgery, hip repair done and placement done. SOCIAL HISTORY: Negative for smoking. She quit about 2005. No alcohol use or drug use. ALLERGIES: SHE IS LISTED ALLERGIC TO PENICILLIN, AMOXICILLIN, DOXYCYCLINE. She is not even sure what happened with penicillin or amoxicillin. REVIEW OF SYSTEMS: As per HPI, all other systems reviewed are negative. CURRENT MEDICATIONS: The patient is on azithromycin as a chronic suppressive for a long time. PHYSICAL EXAMINATION: GENERAL: Alert, oriented female, not in distress. VITAL SIGNS: Stable, afebrile. HEENT: NAD. NECK: Supple, no JVP, no lymphadenopathy. LUNGS: Clear. HEART: S1, S2 regular. ABDOMEN: Benign. EXTREMITIES: No edema or cyanosis. SKIN: Unremarkable. NEUROLOGIC: The patient is neurologically intact. LABORATORY DATA: White count is 7.5, BUN and creatinine are normal. Urinalysis is unremarkable. MRSA screen is negative, that is old. Chest x-ray showed right upper lobe infiltrate. IMPRESSION: 1. Right upper lobe infiltrate/community-acquired pneumonia. 2. Bronchiectasis. 3. Chronic obstructive pulmonary disease. 4. Fibromyalgia. RECOMMEND: We will get CT of the chest. The patient's last CT had nodules in the lung and that was done a long time ago in 2014. There is also a possibility that she has pulmonary ____, although this infiltrate is a new infiltrate, so this is a superimposed pneumonia. RECOMMENDATION: Would get CT chest, sputum for regular culture as well as sputum for AFB culture. Add Rocephin, supportive care and we will continue to follow. Thank you very much, Dr. Samuel, for giving me the opportunity to participate in this patient's care. NADIA MAYNARD MD DR: SANIA/monica JOB#: [id number] / [id number]
[2017-03-15 03:00] VITALS: BP 129/71
[2017-03-15 03:12] LABS: BILIRUBIN,URINE NEGATIVE (NEG); GLUCOSE,URINE NEGATIVE (NEG); NITRITE,URINE NEGATIVE (NEG); PH,URINE 7.5; PROTEIN,URINE NEGATIVE (NEG-TRACE); UROBILINOGEN,URINE 0.2 mg/dL (0.2 mg/dL)
--- NOTE | 2017-03-15 03:13 | CONS ---
DATE OF CONSULTATION: 03/14/2017 ATTENDING PHYSICIAN: Dr. Yony Samuel. REASON FOR CONSULTATION: The patient seen in pulmonary consultation at the request of Dr. Samuel for pneumonia, patient failed outpatient treatment. She was seen in my office earlier last week. HISTORY OF PRESENT ILLNESS: The patient is a 66-year-old that is well known to me from previous hospitalization. She has chronic COPD with a chronic bronchitic type. She has done well with Zithromax on daily basis with anti-inflammatory properties. She has had recurrent bouts of acute exacerbation. She came in last week to the office and was having increasing shortness of breath, low grade fever of 99. Chest x-ray was obtained, which revealed a new infiltrate in the right lower lobe. She was placed on antibiotics. She is allergic to multiple antibiotics including PENICILLIN AND AMOXICILLIN. I spoke with her and we placed her on Levaquin. She called back and stated that it was too expensive. She then was prescribed Augmentin. The patient presented to the Emergency Room with continued low grade fever, low energy level, cough mostly productive of discolored sputum. As a consequence of failing outpatient therapy, she was admitted. PAST MEDICAL AND SURGICAL HISTORY: As indicated above, COPD with a chronic bronchitic type along with an asthma component, recurrent bouts of acute exacerbation on a regular basis. She also has a history of anxiety, degenerative joint disease, restless legs syndrome, hypertension, congestive heart failure, chronic respiratory failure, on oxygen supplementation; esophagitis., cholecystectomy in the past. She had breast biopsy negative for malignancy in 2007. She has had previous vertebroplasty, left hip replacement, right hip repair. She has some compression fractures. She also suffers from affective disorder, bipolar disease and anxiety. ALLERGIES: Multiple allergies see the list. FAMILY HISTORY: Noncontributory in this age group. SOCIAL HISTORY: She quit tobacco many years ago. Denies any excessive alcohol intake. REVIEW OF SYSTEMS: As indicated above, otherwise, a 10-point system was reviewed and negative. PHYSICAL EXAMINATION: VITAL SIGNS: The patient was in no significant respiratory distress, 3 L of oxygen supplementation, saturation greater than 92%. T-max was 98.5. HEENT: Eyes, the sclerae were nonicteric. NECK: Jugular venous distention was not elevated. No lymphadenopathy. CHEST: Full expansion. LUNGS: Rales in the right base. No wheezes. CARDIOVASCULAR: Regular rate and rhythm with S1, S2, no S3. ABDOMEN: Soft, nontender, nondistended. EXTREMITIES: No clubbing, cyanosis or edema. NEUROLOGIC: The patient was awake, alert, following commands. A detailed neuro exam was not performed. IMPRESSION: 1. Acute on chronic respiratory failure secondary to pneumonia. 2. Acute exacerbation. 3. Suspect gram-negative, gram-positive pneumonia. 4. Abnormal chest x-ray. 5. Bipolar disorder. 6. Hypertension. 7. Restless legs syndrome. PLAN: 1. The patient has been seen in consultation by the Infectious Disease Service, she failed outpatient therapy. Continue current antibiotics. 2. CT chest to better delineate the right lower lobe infiltrate. 3. Continue oxygen supplementation. 4. Nebulized treatments. 5. DVT prophylaxis. I do appreciate the privilege in sharing in the patient's care. CRISTINO KRUGER MD DR: NIDHI/monica JOB#: [id number] / [id number]
[2017-03-15 03:19] LABS: BACTERIA,URINE 0 /HPF (0-FEW); RBC,URINE 0 /HPF (0-2); SQUAMOUS EPITHELIAL CELL,UR FEW /LPF; WBC,URINE 0 /HPF (0-4)
[2017-03-15 05:07] LABS: BASO % 0 % (0-3); EOS % 0 % (0-3); HEMATOCRIT 37.6 % (36.0-47.0); HEMOGLOBIN 11.8 g/dL (12.0-15.5); LYMPH # 1.8 x10^3/uL (1.0-4.8); LYMPH % 15 % (24-48); MEAN CORPUSCULAR HEMOGLOBIN 26 pg (25-35); MEAN CORPUSCULAR HGB CONC 32 g/dL (31-37); MEAN CORPUSCULAR VOLUME 83 fL (79-100); MONO % 7 % (0-9); NEUT % 78 % (31-73); PLATELET COUNT 464 x10^3/uL (140-400); RED BLOOD COUNT 4.53 x10^6/uL (3.50-5.40); RED CELL DISTRIBUTION WIDTH 14.7 % (11.5-14.5); WHITE BLOOD COUNT 12.2 x10^3/uL (4.0-11.0)
[2017-03-15 05:15] LABS: ALBUMIN 3.3 g/dL (3.4-5.0); ALBUMIN/GLOBULIN RATIO 0.8 (1.0-1.7); CALCIUM 9.8 mg/dL (8.5-10.1); CREATININE 0.8 mg/dL (0.6-1.0); GFR 72.2; POTASSIUM 4.1 mmol/L (3.5-5.1); TOTAL BILIRUBIN 0.2 mg/dL (0.2-1.0); TOTAL PROTEIN 7.5 g/dL (6.4-8.2)
[2017-03-15] MEDS: IPRATRPIUM/ALBUTEROL 0.5/2.5MG 3 ML NEBU. NEB SCH ×4 (06:11→19:31)
[2017-03-15 07:00] VITALS: BP 124/76
[2017-03-15] MEDS: ALBUTEROL SULFATE 2.5 MG/3 ML NEBU. NEB PRN (07:37)
--- NOTE | 2017-03-15 07:55 | PDOC ---
Infectious Disease Note Subjective Subjective Better with steroids. Constipated nausea and reflux ROS ROS GEN: Denies fevers, chills, sweats HEENT: Denies blurred vision, sore throat CV: Denies chest pain NEURO: Denies confusion, dizziness MSK: Denies weakness, joint pain/swelling Vital Sign Vital Signs Vital Signs Date Time Temp Pulse Resp B/P (MAP) Pulse Ox O2 Delivery O2 Flow Rate FiO2 03/15/17 07:39 95 Nasal Cannula 3.0 03/15/17 03:00 97.4 87 18 129/71 (90) 97.4 Physical Exam PHYSICAL EXAM GENERAL: NAD, Alert HEENT: PERRL, OC/OP- clear NECK: Supple, no JVD, no LN LUNGS: Clear HEART: S1S2, no gallop, no murmur ABD: Soft, NT, no organomegaly, no rebound EXT: No edema, no cyanosis OPERATIONS MANAGEMENT TRAINEE: Alert, oriented x 3, no focal neurologic deficit SKIN: No rash IV: ok Labs Lab Laboratory Tests Test 03/14/17 10:22 03/14/17 16:23 03/14/17 20:16 03/15/17 00:15 Glucose (Fingerstick) 94 mg/dL (70-99) 211 mg/dL (70-99) 146 mg/dL (70-99) Urine Collection Type Unknown Urine Color Yellow Urine Clarity Clear Urine pH 7.5 Urine Specific [place] >=1.030 Urine Protein Negative mg/dL (NEG-TRACE) Urine Glucose (UA) Negative mg/dL (NEG) Urine Ketones (Stick) Negative mg/dL (NEG) Urine Blood Negative (NEG) Urine Nitrite Negative (NEG) Urine Bilirubin Negative (NEG) Urine Urobilinogen Dipstick 0.2 mg/dL (0.2 mg/dL) Urine Leukocyte Esterase Negative (NEG) Urine RBC 0 /HPF (0-2) Urine WBC 0 /HPF (0-4) Urine Squamous Epithelial Cells Few /LPF Urine Bacteria 0 /HPF (0-FEW) Urine Mucus Slight /LPF Test 03/15/17 04:05 White Blood Count 12.2 x10^3/uL (4.0-11.0) Red Blood Count 4.53 x10^6/uL (3.50-5.40) Hemoglobin 11.8 g/dL (12.0-15.5) Hematocrit 37.6 % (36.0-47.0) Mean Corpuscular Volume 83 fL (79-100) Mean Corpuscular Hemoglobin 26 pg (25-35) Mean Corpuscular Hemoglobin Concent 32 g/dL (31-37) Red Cell Distribution Width 14.7 % (11.5-14.5) Platelet Count 464 x10^3/uL (140-400) Neutrophils (%) (Auto) 78 % (31-73) Lymphocytes (%) (Auto) 15 % (24-48) Monocytes (%) (Auto) 7 % (0-9) Eosinophils (%) (Auto) 0 % (0-3) Basophils (%) (Auto) 0 % (0-3) Neutrophils # (Auto) 9.5 x10^3uL (1.8-7.7) Lymphocytes # (Auto) 1.8 x10^3/uL (1.0-4.8) Monocytes # (Auto) 0.9 x10^3/uL (0.0-1.1) Eosinophils # (Auto) 0.0 x10^3/uL (0.0-0.7) Basophils # (Auto) 0.0 x10^3/uL (0.0-0.2) Sodium Level 143 mmol/L (136-145) Potassium Level 4.1 mmol/L (3.5-5.1) Chloride Level 106 mmol/L (98-107) Carbon Dioxide Level 31 mmol/L (21-32) Anion Gap 6 (6-14) Blood Urea Nitrogen 15 mg/dL (7-20) Creatinine 0.8 mg/dL (0.6-1.0) Estimated GFR (Cockcroft-Gault) 72.2 BUN/Creatinine Ratio 19 (6-20) Glucose Level 145 mg/dL (70-99) Calcium Level 9.8 mg/dL (8.5-10.1) Total Bilirubin 0.2 mg/dL (0.2-1.0) Aspartate Amino Transf (AST/SGOT) 32 U/L (15-37) Alanine Aminotransferase (ALT/SGPT) 51 U/L (14-59) Alkaline Phosphatase 79 U/L (46-116) Total Protein 7.5 g/dL (6.4-8.2) Albumin 3.3 g/dL (3.4-5.0) Albumin/Globulin Ratio 0.8 (1.0-1.7) Micro CT chest Impression: 1. Moderate sized foci of of consolidation or less likely mass identified in the right upper lobe of the lung. Differential includes pneumonia or atypical infection or less likely neoplasm Follow-up to resolution. 2. Scattered foci of airspace opacities identified in the right upper lobe, left upper lobe, left lower lobe of the lung with tree-in-bud airspace opacities identified in the right lung could be interstitial changes or atypical infection. 3. Coronary artery calcifications. 4. Mild prominent appearing mediastinal lymph nodes probably reactive. Objective Assessment Pneumonia Bronchiectasis COPD Asthma constipation Plan Plan of Care Cont rocephin/azithro miralax sputum culture sputum for afb KELVIN SAN MD Mar 15, 2017 07:55
[2017-03-15] MEDS: INSULIN ASPART 300 UNITS/3 ML INSULN.PEN SQ SCH ×3 (10:13→17:29)
[2017-03-15] MEDS: PANTOPRAZOLE 40 MG TABLET.DR. PO SCH (10:13)
[2017-03-15] MEDS: methylPREDNISolone SOD SUCC PF 125 MG/2 ML VIAL. IV SCH (10:15)
[2017-03-15] MEDS: POTASSIUM CHLORIDE 20 MEQ TABLET.ER. PO SCH (10:15)
[2017-03-15] MEDS: FUROSEMIDE 40 MG TABLET. PO SCH (10:16)
[2017-03-15] MEDS: POLYETHYLENE GLYCOL 3350 17 GM PACKET. PO SCH (10:16)
[2017-03-15] MEDS: MONTELUKAST SODIUM 10 MG TABLET. PO SCH (10:17)
[2017-03-15] MEDS: AZITHROMYCIN 250 MG TABLET. PO SCH (10:17)
[2017-03-15] MEDS: FLUTICASONE 50MCG/NASAL SPRAY 16GM BOTTLE. NS SCH (10:28)
[2017-03-15] MEDS: DICLOFENAC SODIUM 1% TOPICAL GEL 100GM TUBE. TP SCH ×4 (10:29→20:52)
[2017-03-15] MEDS: ALPRAZolam 0.5 MG TABLET PO PRN (10:30)
[2017-03-15 11:00] VITALS: BP 147/89
[2017-03-15] MEDS: BUDESONIDE 0.5 MG/2 ML NEBU. NEB SCH ×2 (11:00→19:31)
--- NOTE | 2017-03-15 11:13 | PDOC ---
PROGRESS NOTES Subjective Subjective seeing for dr heath, feeling better today Objective Objective Vital Signs Date Time Temp Pulse Resp B/P (MAP) Pulse Ox O2 Delivery O2 Flow Rate FiO2 03/15/17 11:00 97.7 88 19 147/89 (108) 96 Nasal Cannula 97.7 03/15/17 10:55 3.0 Physical Exam Abdomen: Normal bowel sounds, Soft Heart: Regular rate, Normal S1, Normal S2 Extremities: No clubbing General: Oriented X3 HEENT: Atraumatic Lungs: Normal air movement MUSCULOSKELETAL: No swelling, Osteoarthritic changes both hands Neck: Supple Neuro: Normal speech Psych/Mental Status: Mental status NL Skin: No breakdown Assessment Assessment Assessment Pneumonia rt upper lobe Bronchiectasis COPD Asthma constipation Plan Plan of Care ct scan reviewed. wbc 12. breathing treatments Cont rocephin/azithro miralax sputum culture sputum for afb Problems: Comment Review of Relevant I have reviewed the following items jabier (where applicable) has been applied. Labs Laboratory Tests Test 03/14/17 16:23 03/14/17 20:16 03/15/17 00:15 03/15/17 04:05 Glucose (Fingerstick) 211 mg/dL (70-99) 146 mg/dL (70-99) Urine Collection Type Unknown Urine Color Yellow Urine Clarity Clear Urine pH 7.5 Urine Specific [place] >=1.030 Urine Protein Negative mg/dL (NEG-TRACE) Urine Glucose (UA) Negative mg/dL (NEG) Urine Ketones (Stick) Negative mg/dL (NEG) Urine Blood Negative (NEG) Urine Nitrite Negative (NEG) Urine Bilirubin Negative (NEG) Urine Urobilinogen Dipstick 0.2 mg/dL (0.2 mg/dL) Urine Leukocyte Esterase Negative (NEG) Urine RBC 0 /HPF (0-2) Urine WBC 0 /HPF (0-4) Urine Squamous Epithelial Cells Few /LPF Urine Bacteria 0 /HPF (0-FEW) Urine Mucus Slight /LPF White Blood Count 12.2 x10^3/uL (4.0-11.0) Red Blood Count 4.53 x10^6/uL (3.50-5.40) Hemoglobin 11.8 g/dL (12.0-15.5) Hematocrit 37.6 % (36.0-47.0) Mean Corpuscular Volume 83 fL (79-100) Mean Corpuscular Hemoglobin 26 pg (25-35) Mean Corpuscular Hemoglobin Concent 32 g/dL (31-37) Red Cell Distribution Width 14.7 % (11.5-14.5) Platelet Count 464 x10^3/uL (140-400) Neutrophils (%) (Auto) 78 % (31-73) Lymphocytes (%) (Auto) 15 % (24-48) Monocytes (%) (Auto) 7 % (0-9) Eosinophils (%) (Auto) 0 % (0-3) Basophils (%) (Auto) 0 % (0-3) Neutrophils # (Auto) 9.5 x10^3uL (1.8-7.7) Lymphocytes # (Auto) 1.8 x10^3/uL (1.0-4.8) Monocytes # (Auto) 0.9 x10^3/uL (0.0-1.1) Eosinophils # (Auto) 0.0 x10^3/uL (0.0-0.7) Basophils # (Auto) 0.0 x10^3/uL (0.0-0.2) Sodium Level 143 mmol/L (136-145) Potassium Level 4.1 mmol/L (3.5-5.1) Chloride Level 106 mmol/L (98-107) Carbon Dioxide Level 31 mmol/L (21-32) Anion Gap 6 (6-14) Blood Urea Nitrogen 15 mg/dL (7-20) Creatinine 0.8 mg/dL (0.6-1.0) Estimated GFR (Cockcroft-Gault) 72.2 BUN/Creatinine Ratio 19 (6-20) Glucose Level 145 mg/dL (70-99) Calcium Level 9.8 mg/dL (8.5-10.1) Total Bilirubin 0.2 mg/dL (0.2-1.0) Aspartate Amino Transf (AST/SGOT) 32 U/L (15-37) Alanine Aminotransferase (ALT/SGPT) 51 U/L (14-59) Alkaline Phosphatase 79 U/L (46-116) Total Protein 7.5 g/dL (6.4-8.2) Albumin 3.3 g/dL (3.4-5.0) Albumin/Globulin Ratio 0.8 (1.0-1.7) Test 03/15/17 07:18 Glucose (Fingerstick) 88 mg/dL (70-99) Medications Current Medications Al Hydroxide/Mg Hydroxide (Mylanta Plus Xs) 30 ml PRN Q2HR PRN PO HEARTBURN / GAS Last administered on 03/14/17 16:45; Start 03/14/17 at 16:30 Budesonide (Pulmicort) 0.5 mg RTBID NEB ; Start 03/15/17 at 11:00 Insulin Aspart (NovoLOG) TIDAC SQ Last administered on 03/14/17 16:50; Start 03/14/17 at 11:30 Methylprednisolone Sodium Succinate (SOLU-Medrol 125MG VIAL) 80 mg DAILY IV Last administered on 03/15/17 10:15; Start 03/15/17 at 09:00 Methylprednisolone Sodium Succinate (SOLU-Medrol 125MG VIAL) 80 mg Q8HRS IV ; Start 03/14/17 at 14:00; Stop 03/14/17 at 14:00; Status DC Metoclopramide HCl (Reglan) 10 mg PRN Q6HRS PRN IV NAUSEA/VOMITING; Start 03/14 at 16:30 Polyethylene Glycol (miraLAX PACKET) 17 gm DAILY PO Last administered on 10:16; Start 03/15/17 at 09:00 Vitals/I & O Vital Sign - Last 24 Hours 03/14/17 03/14/17 03/14/17 03/14/17 11:36 15:00 15:01 19:00 Temp 98.6 98.1 98.6 98.1 Pulse 97 83 Resp 18 19 B/P (MAP) 106/64 (78) 144/89 (107) Pulse Ox 98 95 96 O2 Delivery Nasal Cannula Nasal Cannula Nasal Cannula Nasal Cannula O2 Flow Rate 3.0 3.0 3.0 3.0 03/14/17 03/14/17 03/14/17 03/15/17 19:52 20:00 23:00 03:00 Temp 97.6 97.4 97.6 97.4 Pulse 96 87 Resp 18 18 B/P (MAP) 143/70 (94) 129/71 (90) Pulse Ox 96 96 O2 Delivery Nasal Cannula Nasal Cannula Nasal Cannula Nasal Cannula O2 Flow Rate 3.0 3.0 3.0 3.0 03/15/17 03/15/17 03/15/17 03/15/17 06:09 07:00 07:39 10:55 Temp 97.8 97.8 Pulse 80 Resp 19 B/P (MAP) 124/76 (92) Pulse Ox 93 95 95 O2 Delivery Nasal Cannula Nasal Cannula Nasal Cannula Nasal Cannula O2 Flow Rate 3.0 3.0 3.0 03/15/17 11:00 Temp 97.7 97.7 Pulse 88 Resp 19 B/P (MAP) 147/89 (108) Pulse Ox 96 O2 Delivery Nasal Cannula ARAVIND IRVING MD Mar 15, 2017 11:13
--- NOTE | 2017-03-15 11:43 | PDOC ---
PULMONARY PROGRESS NOTES Subjective less soa, less cough Vitals Vital Signs Date Time Temp Pulse Resp B/P (MAP) Pulse Ox O2 Delivery O2 Flow Rate FiO2 03/15/17 11:00 97.7 88 19 147/89 (108) 96 Nasal Cannula 97.7 03/15/17 10:55 3.0 General: Alert, Oriented X4, No acute distress Lungs: Other (decrease bs) Cardiovascular: S1, S2 Abdomen: Soft, Non-tender Neuro Exam: Alert Extremities: No Edema Skin: Warm Labs Laboratory Tests Test 03/13/17 18:17 03/14/17 05:00 03/14/17 05:30 03/14/17 10:22 White Blood Count 10.7 x10^3/uL (4.0-11.0) 7.5 x10^3/uL (4.0-11.0) Red Blood Count 4.85 x10^6/uL (3.50-5.40) 4.40 x10^6/uL (3.50-5.40) Hemoglobin 12.7 g/dL (12.0-15.5) 11.7 g/dL (12.0-15.5) Hematocrit 39.5 % (36.0-47.0) 35.3 % (36.0-47.0) Mean Corpuscular Volume 82 fL (79-100) 80 fL (79-100) Mean Corpuscular Hemoglobin 26 pg (25-35) 27 pg (25-35) Mean Corpuscular Hemoglobin Concent 32 g/dL (31-37) 33 g/dL (31-37) Red Cell Distribution Width 14.7 % (11.5-14.5) 14.8 % (11.5-14.5) Platelet Count 532 x10^3/uL (140-400) 485 x10^3/uL (140-400) Neutrophils (%) (Auto) 54 % (31-73) 35 % (31-73) Lymphocytes (%) (Auto) 30 % (24-48) 37 % (24-48) Monocytes (%) (Auto) 9 % (0-9) 12 % (0-9) Eosinophils (%) (Auto) 6 % (0-3) 14 % (0-3) Basophils (%) (Auto) 1 % (0-3) 2 % (0-3) Neutrophils # (Auto) 5.7 x10^3uL (1.8-7.7) 2.6 x10^3uL (1.8-7.7) Lymphocytes # (Auto) 3.2 x10^3/uL (1.0-4.8) 2.8 x10^3/uL (1.0-4.8) Monocytes # (Auto) 0.9 x10^3/uL (0.0-1.1) 0.9 x10^3/uL (0.0-1.1) Eosinophils # (Auto) 0.7 x10^3/uL (0.0-0.7) 1.0 x10^3/uL (0.0-0.7) Basophils # (Auto) 0.1 x10^3/uL (0.0-0.2) 0.1 x10^3/uL (0.0-0.2) Sodium Level 142 mmol/L (136-145) 144 mmol/L (136-145) Potassium Level 3.9 mmol/L (3.5-5.1) 3.4 mmol/L (3.5-5.1) Chloride Level 102 mmol/L (98-107) 106 mmol/L (98-107) Carbon Dioxide Level 31 mmol/L (21-32) 31 mmol/L (21-32) Anion Gap 9 (6-14) 7 (6-14) Blood Urea Nitrogen 18 mg/dL (7-20) 14 mg/dL (7-20) Creatinine 1.0 mg/dL (0.6-1.0) 0.9 mg/dL (0.6-1.0) Estimated GFR (Cockcroft-Gault) 55.8 63.0 Glucose Level 101 mg/dL (70-99) 101 mg/dL (70-99) Calcium Level 10.0 mg/dL (8.5-10.1) 9.3 mg/dL (8.5-10.1) Glucose (Fingerstick) 94 mg/dL (70-99) Test 03/14/17 16:23 03/14/17 20:16 03/15/17 00:15 03/15/17 04:05 Glucose (Fingerstick) 211 mg/dL (70-99) 146 mg/dL (70-99) Urine Collection Type Unknown Urine Color Yellow Urine Clarity Clear Urine pH 7.5 Urine Specific [place] >=1.030 Urine Protein Negative mg/dL (NEG-TRACE) Urine Glucose (UA) Negative mg/dL (NEG) Urine Ketones (Stick) Negative mg/dL (NEG) Urine Blood Negative (NEG) Urine Nitrite Negative (NEG) Urine Bilirubin Negative (NEG) Urine Urobilinogen Dipstick 0.2 mg/dL (0.2 mg/dL) Urine Leukocyte Esterase Negative (NEG) Urine RBC 0 /HPF (0-2) Urine WBC 0 /HPF (0-4) Urine Squamous Epithelial Cells Few /LPF Urine Bacteria 0 /HPF (0-FEW) Urine Mucus Slight /LPF White Blood Count 12.2 x10^3/uL (4.0-11.0) Red Blood Count 4.53 x10^6/uL (3.50-5.40) Hemoglobin 11.8 g/dL (12.0-15.5) Hematocrit 37.6 % (36.0-47.0) Mean Corpuscular Volume 83 fL (79-100) Mean Corpuscular Hemoglobin 26 pg (25-35) Mean Corpuscular Hemoglobin Concent 32 g/dL (31-37) Red Cell Distribution Width 14.7 % (11.5-14.5) Platelet Count 464 x10^3/uL (140-400) Neutrophils (%) (Auto) 78 % (31-73) Lymphocytes (%) (Auto) 15 % (24-48) Monocytes (%) (Auto) 7 % (0-9) Eosinophils (%) (Auto) 0 % (0-3) Basophils (%) (Auto) 0 % (0-3) Neutrophils # (Auto) 9.5 x10^3uL (1.8-7.7) Lymphocytes # (Auto) 1.8 x10^3/uL (1.0-4.8) Monocytes # (Auto) 0.9 x10^3/uL (0.0-1.1) Eosinophils # (Auto) 0.0 x10^3/uL (0.0-0.7) Basophils # (Auto) 0.0 x10^3/uL (0.0-0.2) Sodium Level 143 mmol/L (136-145) Potassium Level 4.1 mmol/L (3.5-5.1) Chloride Level 106 mmol/L (98-107) Carbon Dioxide Level 31 mmol/L (21-32) Anion Gap 6 (6-14) Blood Urea Nitrogen 15 mg/dL (7-20) Creatinine 0.8 mg/dL (0.6-1.0) Estimated GFR (Cockcroft-Gault) 72.2 BUN/Creatinine Ratio 19 (6-20) Glucose Level 145 mg/dL (70-99) Calcium Level 9.8 mg/dL (8.5-10.1) Total Bilirubin 0.2 mg/dL (0.2-1.0) Aspartate Amino Transf (AST/SGOT) 32 U/L (15-37) Alanine Aminotransferase (ALT/SGPT) 51 U/L (14-59) Alkaline Phosphatase 79 U/L (46-116) Total Protein 7.5 g/dL (6.4-8.2) Albumin 3.3 g/dL (3.4-5.0) Albumin/Globulin Ratio 0.8 (1.0-1.7) Test 03/15/17 07:18 Glucose (Fingerstick) 88 mg/dL (70-99) Laboratory Tests Test 03/14/17 16:23 03/14/17 20:16 03/15/17 00:15 03/15/17 04:05 Glucose (Fingerstick) 211 mg/dL (70-99) 146 mg/dL (70-99) Urine Collection Type Unknown Urine Color Yellow Urine Clarity Clear Urine pH 7.5 Urine Specific [place] >=1.030 Urine Protein Negative mg/dL (NEG-TRACE) Urine Glucose (UA) Negative mg/dL (NEG) Urine Ketones (Stick) Negative mg/dL (NEG) Urine Blood Negative (NEG) Urine Nitrite Negative (NEG) Urine Bilirubin Negative (NEG) Urine Urobilinogen Dipstick 0.2 mg/dL (0.2 mg/dL) Urine Leukocyte Esterase Negative (NEG) Urine RBC 0 /HPF (0-2) Urine WBC 0 /HPF (0-4) Urine Squamous Epithelial Cells Few /LPF Urine Bacteria 0 /HPF (0-FEW) Urine Mucus Slight /LPF White Blood Count 12.2 x10^3/uL (4.0-11.0) Red Blood Count 4.53 x10^6/uL (3.50-5.40) Hemoglobin 11.8 g/dL (12.0-15.5) Hematocrit 37.6 % (36.0-47.0) Mean Corpuscular Volume 83 fL (79-100) Mean Corpuscular Hemoglobin 26 pg (25-35) Mean Corpuscular Hemoglobin Concent 32 g/dL (31-37) Red Cell Distribution Width 14.7 % (11.5-14.5) Platelet Count 464 x10^3/uL (140-400) Neutrophils (%) (Auto) 78 % (31-73) Lymphocytes (%) (Auto) 15 % (24-48) Monocytes (%) (Auto) 7 % (0-9) Eosinophils (%) (Auto) 0 % (0-3) Basophils (%) (Auto) 0 % (0-3) Neutrophils # (Auto) 9.5 x10^3uL (1.8-7.7) Lymphocytes # (Auto) 1.8 x10^3/uL (1.0-4.8) Monocytes # (Auto) 0.9 x10^3/uL (0.0-1.1) Eosinophils # (Auto) 0.0 x10^3/uL (0.0-0.7) Basophils # (Auto) 0.0 x10^3/uL (0.0-0.2) Sodium Level 143 mmol/L (136-145) Potassium Level 4.1 mmol/L (3.5-5.1) Chloride Level 106 mmol/L (98-107) Carbon Dioxide Level 31 mmol/L (21-32) Anion Gap 6 (6-14) Blood Urea Nitrogen 15 mg/dL (7-20) Creatinine 0.8 mg/dL (0.6-1.0) Estimated GFR (Cockcroft-Gault) 72.2 BUN/Creatinine Ratio 19 (6-20) Glucose Level 145 mg/dL (70-99) Calcium Level 9.8 mg/dL (8.5-10.1) Total Bilirubin 0.2 mg/dL (0.2-1.0) Aspartate Amino Transf (AST/SGOT) 32 U/L (15-37) Alanine Aminotransferase (ALT/SGPT) 51 U/L (14-59) Alkaline Phosphatase 79 U/L (46-116) Total Protein 7.5 g/dL (6.4-8.2) Albumin 3.3 g/dL (3.4-5.0) Albumin/Globulin Ratio 0.8 (1.0-1.7) Test 03/15/17 07:18 Glucose (Fingerstick) 88 mg/dL (70-99) Medications Active Scripts Medications Dose Route/Sig Max Daily Dose Days Date Category Duoneb 0.5-3(2.5) Mg/3 Ml (Albuterol/Ipratropium) 3 Ml Ampul.neb 3 Ml NEB QID 03/14/17 Reported Ventolin Hfa Inhaler (Albuterol Sulfate) 18 Gm Hfa.aer.ad 2 Puff INH Q4HRS 03/13/17 Reported Nystatin 100,000 Unit/1 Ml Oral.susp 100,000 Unit PO 03/13/17 Reported Mucinex (Guaifenesin) 1,200 Mg Tbmp.12hr 1,200 Mg PO PRN BID PRN 03/13/17 Reported Arthritis Pain Relief (Acetaminophen) 650 Mg Tablet.er 650 Mg PO 03/13/17 Reported Melatonin 3 Mg Tablet 10 Mg PO 03/13/17 Reported Hydroxyzine Hcl 25 Mg Tablet 1-2 Tab PO TID 01/24/15 Rx Xanax (Alprazolam) 0.5 Mg Tablet 0.5 Mg PO PRN Q6HRS PRN 01/24/15 Rx Hydrocodone-Apap 7.5-325 (Hydrocodone Bit/Acetaminophen) 1 Each Tablet 1 Tab PO PRN Q6HRS PRN 01/24/15 Rx Zithromax (Azithromycin) 250 Mg Tablet 250 Mg PO DAILY 01/24/15 Rx Pepcid (Famotidine) 20 Mg Tablet 40 Mg PO HS 01/24/15 Rx Omeprazole 40 Mg Capsule.dr 40 Mg PO DAILY 01/24/15 Rx Zofran (Ondansetron Hcl) 4 Mg Tablet 4 Mg PO BID PRN 01/24/15 Rx Voltaren (Diclofenac Sodium) 100 Gm Gel..gram. 1 Gm TP QID 02/02/14 Reported Singulair Tablet (Montelukast Sodium) 10 Mg Tablet 1 Tab PO DAILY 02/02/14 Reported Deep Sea (Sodium Chloride) 44 Ml Mcfarland 2 Mcfarland NS Q4HRS 02/02/14 Reported Colace (Docusate Sodium) 100 Mg Capsule 1 Cap PO BID PRN 02/02/14 Reported Flonase (Fluticasone Propionate) 16 Gm Mcfarland.susp 2 Mcfarland NS DAILY 02/02/14 Reported Clotrimazole-Betamethasone Crm (Clotrimazole/Betamethasone Dip) 15 Gm Cream..g. 1 Latanya TP PRN PRN 02/02/14 Reported Triamcinolone Acetonide 0.5% Cream (Triamcinolone Acetonide) 15 Gm Cream..g. 1 Latanya TP PRN PRN 02/02/14 Reported Clobetasol Propionate 15 Gm Cream..g. 1 Latanya TP PRN PRN 02/02/14 Reported Prednisone 10 Mg Tablet 10 Mg PO DAILY PRN 02/02/14 Reported Cyclobenzaprine Hcl 10 Mg Tablet 1 Tab PO TID PRN 02/02/14 Reported Lasix (Furosemide) 40 Mg Tablet 1 Tab PO DAILY 02/02/14 Reported Potassium Chloride 20 Meq Tab.er.prt 20 Meq PO DAILY 02/02/14 Reported Impression . 1. Acute on chronic respiratory failure secondary to pneumonia. 2. Acute exacerbation of COPD 3. Suspect gram-negative, gram-positive pneumonia. 4. Abnormal ct chest. Mass like consolidation RUL, chronic mild fibrotic changes RUL. 5. Bipolar disorder. 6. Hypertension. 7. Restless legs syndrome. Plan . 1. Continue current antibiotics. 2. repeat CT chest in 4-6 weeks to r/o improvement in RUL mass like consolidation 3. Continue oxygen supplementation. 4. Nebulized treatments. 5. DVT prophylaxis. JAGDISH CARTER MD Mar 15, 2017 11:43
[2017-03-15] MEDS: ACETAMINOPHEN 325 MG TABLET. PO PRN ×2 (14:35→20:52)
[2017-03-15 15:00] VITALS: BP 99/66
[2017-03-15 19:00] VITALS: BP 139/79
[2017-03-15] MEDS: DOCUSATE SODIUM 100 MG CAPSULE. PO PRN (20:47)
[2017-03-15 23:00] VITALS: BP 142/74
[2017-03-16 03:15] VITALS: BP 149/79
[2017-03-16 06:29] LABS: BASO # 0.1 x10^3/uL (0.0-0.2); BASO % 0 % (0-3); EOS % 0 % (0-3); HEMATOCRIT 36.6 % (36.0-47.0); HEMOGLOBIN 11.9 g/dL (12.0-15.5); LYMPH # 3.4 x10^3/uL (1.0-4.8); LYMPH % 23 % (24-48); MEAN CORPUSCULAR HEMOGLOBIN 26 pg (25-35); MEAN CORPUSCULAR HGB CONC 32 g/dL (31-37); MEAN CORPUSCULAR VOLUME 81 fL (79-100); MONO % 7 % (0-9); NEUT % 69 % (31-73); PLATELET COUNT 461 x10^3/uL (140-400); RED CELL DISTRIBUTION WIDTH 15.1 % (11.5-14.5); WHITE BLOOD COUNT 14.5 x10^3/uL (4.0-11.0)
[2017-03-16 06:52] LABS: ALBUMIN 3.2 g/dL (3.4-5.0); ALBUMIN/GLOBULIN RATIO 0.8 (1.0-1.7); CALCIUM 9.5 mg/dL (8.5-10.1); CREATININE 0.8 mg/dL (0.6-1.0); GFR 72.2; POTASSIUM 4.4 mmol/L (3.5-5.1); TOTAL BILIRUBIN 0.2 mg/dL (0.2-1.0); TOTAL PROTEIN 7.2 g/dL (6.4-8.2)
[2017-03-16 07:00] VITALS: BP 162/96
[2017-03-16] MEDS: INSULIN ASPART 300 UNITS/3 ML INSULN.PEN SQ SCH ×3 (07:30→17:49)
[2017-03-16] MEDS: BUDESONIDE 0.5 MG/2 ML NEBU. NEB SCH ×2 (07:35→20:09)
[2017-03-16] MEDS: IPRATRPIUM/ALBUTEROL 0.5/2.5MG 3 ML NEBU. NEB SCH ×4 (07:35→20:08)
[2017-03-16] MEDS: FUROSEMIDE 40 MG TABLET. PO SCH (08:17)
[2017-03-16] MEDS: MONTELUKAST SODIUM 10 MG TABLET. PO SCH (08:17)
[2017-03-16] MEDS: AZITHROMYCIN 250 MG TABLET. PO SCH (08:17)
[2017-03-16] MEDS: PANTOPRAZOLE 40 MG TABLET.DR. PO SCH (08:17)
[2017-03-16] MEDS: methylPREDNISolone SOD SUCC PF 125 MG/2 ML VIAL. IV SCH (08:18)
[2017-03-16] MEDS: DICLOFENAC SODIUM 1% TOPICAL GEL 100GM TUBE. TP SCH ×4 (08:18→21:29)
[2017-03-16] MEDS: ALPRAZolam 0.5 MG TABLET PO PRN (08:18)
[2017-03-16] MEDS: POLYETHYLENE GLYCOL 3350 17 GM PACKET. PO SCH (08:19)
[2017-03-16] MEDS: POTASSIUM CHLORIDE 20 MEQ TABLET.ER. PO SCH (08:19)
[2017-03-16] MEDS: FLUTICASONE 50MCG/NASAL SPRAY 16GM BOTTLE. NS SCH (08:20)
--- NOTE | 2017-03-16 10:05 | PDOC ---
Infectious Disease Note Subjective Subjective No BM yet, going to try warm prune juice shortly, + abdominal bloating and belching Nonproductive cough Supplemental O2 at baseline of 3L NC Denies CP ROS ROS GEN: Denies fevers, chills, sweats GI: Denies n/v Vital Sign Vital Signs Vital Signs Date Time Temp Pulse Resp B/P (MAP) Pulse Ox O2 Delivery O2 Flow Rate FiO2 03/16/17 07:39 98 Nasal Cannula 3.0 03/16/17 07:00 98.1 79 20 162/96 (118) 98.1 Physical Exam PHYSICAL EXAM GENERAL: Sitting on the side of bed, relaxed appearance HEENT: OC/OP dry LUNGS: Clear HEART: S1 and S2 ABD: Soft, NT EXT: No edema, no cyanosis BAND STRAIGHTENER: Alert, oriented x 3, no focal neurologic deficit SKIN: No rash IV: ok Labs Lab Laboratory Tests Test 03/15/17 12:03 03/15/17 16:33 03/15/17 20:55 03/16/17 05:55 Glucose (Fingerstick) 115 mg/dL (70-99) 194 mg/dL (70-99) 130 mg/dL (70-99) White Blood Count 14.5 x10^3/uL (4.0-11.0) Red Blood Count 4.50 x10^6/uL (3.50-5.40) Hemoglobin 11.9 g/dL (12.0-15.5) Hematocrit 36.6 % (36.0-47.0) Mean Corpuscular Volume 81 fL (79-100) Mean Corpuscular Hemoglobin 26 pg (25-35) Mean Corpuscular Hemoglobin Concent 32 g/dL (31-37) Red Cell Distribution Width 15.1 % (11.5-14.5) Platelet Count 461 x10^3/uL (140-400) Neutrophils (%) (Auto) 69 % (31-73) Lymphocytes (%) (Auto) 23 % (24-48) Monocytes (%) (Auto) 7 % (0-9) Eosinophils (%) (Auto) 0 % (0-3) Basophils (%) (Auto) 0 % (0-3) Neutrophils # (Auto) 10.0 x10^3uL (1.8-7.7) Lymphocytes # (Auto) 3.4 x10^3/uL (1.0-4.8) Monocytes # (Auto) 1.0 x10^3/uL (0.0-1.1) Eosinophils # (Auto) 0.0 x10^3/uL (0.0-0.7) Basophils # (Auto) 0.1 x10^3/uL (0.0-0.2) Sodium Level 144 mmol/L (136-145) Potassium Level 4.4 mmol/L (3.5-5.1) Chloride Level 107 mmol/L (98-107) Carbon Dioxide Level 33 mmol/L (21-32) Anion Gap 4 (6-14) Blood Urea Nitrogen 15 mg/dL (7-20) Creatinine 0.8 mg/dL (0.6-1.0) Estimated GFR (Cockcroft-Gault) 72.2 BUN/Creatinine Ratio 19 (6-20) Glucose Level 98 mg/dL (70-99) Calcium Level 9.5 mg/dL (8.5-10.1) Total Bilirubin 0.2 mg/dL (0.2-1.0) Aspartate Amino Transf (AST/SGOT) 26 U/L (15-37) Alanine Aminotransferase (ALT/SGPT) 51 U/L (14-59) Alkaline Phosphatase 73 U/L (46-116) Total Protein 7.2 g/dL (6.4-8.2) Albumin 3.2 g/dL (3.4-5.0) Albumin/Globulin Ratio 0.8 (1.0-1.7) Test 03/16/17 07:52 Glucose (Fingerstick) 74 mg/dL (70-99) Objective Assessment Pneumonia Bronchiectasis COPD Asthma Constipation Leukocytosis Plan Plan of Care Cont Rocephin and azithromycin On steriods miralax. Trying Prune juice Sputum culture & AFB pending Attending Co-Sign Attending Co-Sign The patient was seen and interviewed as well as examined at the bedside. The chart was reviewed. The case was discussed. Agree with the plan of care. EDEL GALLOWAY APRN Mar 16, 2017 10:05 KELVIN SAN MD Mar 16, 2017 13:25
[2017-03-16 11:00] VITALS: BP 133/101
--- NOTE | 2017-03-16 11:19 | PDOC ---
PROGRESS NOTES Subjective Subjective anxiety from steroids Objective Objective Vital Signs Date Time Temp Pulse Resp B/P (MAP) Pulse Ox O2 Delivery O2 Flow Rate FiO2 03/16/17 07:39 98 Nasal Cannula 3.0 03/16/17 07:00 98.1 79 20 162/96 (118) 98.1 Physical Exam Abdomen: Normal bowel sounds, Soft Heart: Regular rate, Normal S1, Normal S2 Extremities: No clubbing General: Oriented X3 HEENT: Atraumatic Lungs: Normal air movement MUSCULOSKELETAL: No swelling, Osteoarthritic changes both hands Neck: Supple Neuro: Normal speech Psych/Mental Status: Mental status NL Skin: No breakdown Assessment Assessment Assessment Pneumonia rt upper lobe Bronchiectasis COPD Asthma constipation Plan Plan of Care: add xanax for anxiety. nystatin for skin fold rash ct scan reviewed. wbc 14 inc due to steroids. breathing treatments Cont rocephin/azithro miralax sputum culture sputum for afb Problems: Comment Review of Relevant I have reviewed the following items jabier (where applicable) has been applied. Labs Laboratory Tests Test 03/15/17 12:03 03/15/17 16:33 03/15/17 20:55 03/16/17 05:55 Glucose (Fingerstick) 115 mg/dL (70-99) 194 mg/dL (70-99) 130 mg/dL (70-99) White Blood Count 14.5 x10^3/uL (4.0-11.0) Red Blood Count 4.50 x10^6/uL (3.50-5.40) Hemoglobin 11.9 g/dL (12.0-15.5) Hematocrit 36.6 % (36.0-47.0) Mean Corpuscular Volume 81 fL (79-100) Mean Corpuscular Hemoglobin 26 pg (25-35) Mean Corpuscular Hemoglobin Concent 32 g/dL (31-37) Red Cell Distribution Width 15.1 % (11.5-14.5) Platelet Count 461 x10^3/uL (140-400) Neutrophils (%) (Auto) 69 % (31-73) Lymphocytes (%) (Auto) 23 % (24-48) Monocytes (%) (Auto) 7 % (0-9) Eosinophils (%) (Auto) 0 % (0-3) Basophils (%) (Auto) 0 % (0-3) Neutrophils # (Auto) 10.0 x10^3uL (1.8-7.7) Lymphocytes # (Auto) 3.4 x10^3/uL (1.0-4.8) Monocytes # (Auto) 1.0 x10^3/uL (0.0-1.1) Eosinophils # (Auto) 0.0 x10^3/uL (0.0-0.7) Basophils # (Auto) 0.1 x10^3/uL (0.0-0.2) Sodium Level 144 mmol/L (136-145) Potassium Level 4.4 mmol/L (3.5-5.1) Chloride Level 107 mmol/L (98-107) Carbon Dioxide Level 33 mmol/L (21-32) Anion Gap 4 (6-14) Blood Urea Nitrogen 15 mg/dL (7-20) Creatinine 0.8 mg/dL (0.6-1.0) Estimated GFR (Cockcroft-Gault) 72.2 BUN/Creatinine Ratio 19 (6-20) Glucose Level 98 mg/dL (70-99) Calcium Level 9.5 mg/dL (8.5-10.1) Total Bilirubin 0.2 mg/dL (0.2-1.0) Aspartate Amino Transf (AST/SGOT) 26 U/L (15-37) Alanine Aminotransferase (ALT/SGPT) 51 U/L (14-59) Alkaline Phosphatase 73 U/L (46-116) Total Protein 7.2 g/dL (6.4-8.2) Albumin 3.2 g/dL (3.4-5.0) Albumin/Globulin Ratio 0.8 (1.0-1.7) Test 03/16/17 07:52 Glucose (Fingerstick) 74 mg/dL (70-99) Microbiology 03/14/17 - Final, Resulted 03/14/17 - Final, Resulted 03/14/17 - Final, Resulted 03/14/17 Gram Stain Evaluation - Final, Resulted 03/14/17 Sputum Culture, Resulted Pending Vitals/I & O Vital Sign - Last 24 Hours 03/15/17 03/15/17 03/15/17 03/15/17 15:00 15:45 19:00 19:32 Temp 98.4 98.3 98.4 98.3 Pulse 92 87 Resp 19 20 B/P (MAP) 99/66 (77) 139/79 (99) Pulse Ox 92 92 97 O2 Delivery Room Air Nasal Cannula Nasal Cannula Nasal Cannula O2 Flow Rate 3.0 3.0 03/15/17 03/15/17 03/15/17 03/16/17 19:34 20:50 23:00 03:15 Temp 97.8 97.5 97.8 97.5 Pulse 73 72 Resp 20 20 B/P (MAP) 142/74 (96) 149/79 (102) Pulse Ox 97 98 97 O2 Delivery Nasal Cannula Nasal Cannula Nasal Cannula Nasal Cannula O2 Flow Rate 3.0 3.0 03/16/17 03/16/17 03/16/17 07:00 07:37 07:39 Temp 98.1 98.1 Pulse 79 Resp 20 B/P (MAP) 162/96 (118) Pulse Ox 97 98 98 O2 Delivery Nasal Cannula Nasal Cannula Nasal Cannula O2 Flow Rate 3.0 3.0 3.0 ARAVIND IRVING MD Mar 16, 2017 11:19
[2017-03-16] MEDS ORDERED: ALPRAZolam 1 MG TABLET PO PRN (11:30)
--- NOTE | 2017-03-16 11:57 | PDOC ---
PULMONARY PROGRESS NOTES Subjective less soa, less cough Vitals Vital Signs Date Time Temp Pulse Resp B/P (MAP) Pulse Ox O2 Delivery O2 Flow Rate FiO2 03/16/17 11:24 Nasal Cannula 3.0 03/16/17 11:00 98.1 88 20 133/101 (112) 96 98.1 General: Alert, Oriented X4, No acute distress Lungs: Wheezing (faint) Cardiovascular: S1, S2 Abdomen: Soft, Non-tender Neuro Exam: Alert Extremities: No Edema Skin: Warm Labs Laboratory Tests Test 03/14/17 16:23 03/14/17 20:16 03/15/17 00:15 03/15/17 04:05 Glucose (Fingerstick) 211 mg/dL (70-99) 146 mg/dL (70-99) Urine Collection Type Unknown Urine Color Yellow Urine Clarity Clear Urine pH 7.5 Urine Specific [place] >=1.030 Urine Protein Negative mg/dL (NEG-TRACE) Urine Glucose (UA) Negative mg/dL (NEG) Urine Ketones (Stick) Negative mg/dL (NEG) Urine Blood Negative (NEG) Urine Nitrite Negative (NEG) Urine Bilirubin Negative (NEG) Urine Urobilinogen Dipstick 0.2 mg/dL (0.2 mg/dL) Urine Leukocyte Esterase Negative (NEG) Urine RBC 0 /HPF (0-2) Urine WBC 0 /HPF (0-4) Urine Squamous Epithelial Cells Few /LPF Urine Bacteria 0 /HPF (0-FEW) Urine Mucus Slight /LPF White Blood Count 12.2 x10^3/uL (4.0-11.0) Red Blood Count 4.53 x10^6/uL (3.50-5.40) Hemoglobin 11.8 g/dL (12.0-15.5) Hematocrit 37.6 % (36.0-47.0) Mean Corpuscular Volume 83 fL (79-100) Mean Corpuscular Hemoglobin 26 pg (25-35) Mean Corpuscular Hemoglobin Concent 32 g/dL (31-37) Red Cell Distribution Width 14.7 % (11.5-14.5) Platelet Count 464 x10^3/uL (140-400) Neutrophils (%) (Auto) 78 % (31-73) Lymphocytes (%) (Auto) 15 % (24-48) Monocytes (%) (Auto) 7 % (0-9) Eosinophils (%) (Auto) 0 % (0-3) Basophils (%) (Auto) 0 % (0-3) Neutrophils # (Auto) 9.5 x10^3uL (1.8-7.7) Lymphocytes # (Auto) 1.8 x10^3/uL (1.0-4.8) Monocytes # (Auto) 0.9 x10^3/uL (0.0-1.1) Eosinophils # (Auto) 0.0 x10^3/uL (0.0-0.7) Basophils # (Auto) 0.0 x10^3/uL (0.0-0.2) Sodium Level 143 mmol/L (136-145) Potassium Level 4.1 mmol/L (3.5-5.1) Chloride Level 106 mmol/L (98-107) Carbon Dioxide Level 31 mmol/L (21-32) Anion Gap 6 (6-14) Blood Urea Nitrogen 15 mg/dL (7-20) Creatinine 0.8 mg/dL (0.6-1.0) Estimated GFR (Cockcroft-Gault) 72.2 BUN/Creatinine Ratio 19 (6-20) Glucose Level 145 mg/dL (70-99) Calcium Level 9.8 mg/dL (8.5-10.1) Total Bilirubin 0.2 mg/dL (0.2-1.0) Aspartate Amino Transf (AST/SGOT) 32 U/L (15-37) Alanine Aminotransferase (ALT/SGPT) 51 U/L (14-59) Alkaline Phosphatase 79 U/L (46-116) Total Protein 7.5 g/dL (6.4-8.2) Albumin 3.3 g/dL (3.4-5.0) Albumin/Globulin Ratio 0.8 (1.0-1.7) Test 03/15/17 07:18 03/15/17 12:03 03/15/17 16:33 03/15/17 20:55 Glucose (Fingerstick) 88 mg/dL (70-99) 115 mg/dL (70-99) 194 mg/dL (70-99) 130 mg/dL (70-99) Test 03/16/17 05:55 03/16/17 07:52 03/16/17 11:27 White Blood Count 14.5 x10^3/uL (4.0-11.0) Red Blood Count 4.50 x10^6/uL (3.50-5.40) Hemoglobin 11.9 g/dL (12.0-15.5) Hematocrit 36.6 % (36.0-47.0) Mean Corpuscular Volume 81 fL (79-100) Mean Corpuscular Hemoglobin 26 pg (25-35) Mean Corpuscular Hemoglobin Concent 32 g/dL (31-37) Red Cell Distribution Width 15.1 % (11.5-14.5) Platelet Count 461 x10^3/uL (140-400) Neutrophils (%) (Auto) 69 % (31-73) Lymphocytes (%) (Auto) 23 % (24-48) Monocytes (%) (Auto) 7 % (0-9) Eosinophils (%) (Auto) 0 % (0-3) Basophils (%) (Auto) 0 % (0-3) Neutrophils # (Auto) 10.0 x10^3uL (1.8-7.7) Lymphocytes # (Auto) 3.4 x10^3/uL (1.0-4.8) Monocytes # (Auto) 1.0 x10^3/uL (0.0-1.1) Eosinophils # (Auto) 0.0 x10^3/uL (0.0-0.7) Basophils # (Auto) 0.1 x10^3/uL (0.0-0.2) Sodium Level 144 mmol/L (136-145) Potassium Level 4.4 mmol/L (3.5-5.1) Chloride Level 107 mmol/L (98-107) Carbon Dioxide Level 33 mmol/L (21-32) Anion Gap 4 (6-14) Blood Urea Nitrogen 15 mg/dL (7-20) Creatinine 0.8 mg/dL (0.6-1.0) Estimated GFR (Cockcroft-Gault) 72.2 BUN/Creatinine Ratio 19 (6-20) Glucose Level 98 mg/dL (70-99) Calcium Level 9.5 mg/dL (8.5-10.1) Total Bilirubin 0.2 mg/dL (0.2-1.0) Aspartate Amino Transf (AST/SGOT) 26 U/L (15-37) Alanine Aminotransferase (ALT/SGPT) 51 U/L (14-59) Alkaline Phosphatase 73 U/L (46-116) Total Protein 7.2 g/dL (6.4-8.2) Albumin 3.2 g/dL (3.4-5.0) Albumin/Globulin Ratio 0.8 (1.0-1.7) Glucose (Fingerstick) 74 mg/dL (70-99) 126 mg/dL (70-99) Laboratory Tests Test 03/15/17 12:03 03/15/17 16:33 03/15/17 20:55 03/16/17 05:55 Glucose (Fingerstick) 115 mg/dL (70-99) 194 mg/dL (70-99) 130 mg/dL (70-99) White Blood Count 14.5 x10^3/uL (4.0-11.0) Red Blood Count 4.50 x10^6/uL (3.50-5.40) Hemoglobin 11.9 g/dL (12.0-15.5) Hematocrit 36.6 % (36.0-47.0) Mean Corpuscular Volume 81 fL (79-100) Mean Corpuscular Hemoglobin 26 pg (25-35) Mean Corpuscular Hemoglobin Concent 32 g/dL (31-37) Red Cell Distribution Width 15.1 % (11.5-14.5) Platelet Count 461 x10^3/uL (140-400) Neutrophils (%) (Auto) 69 % (31-73) Lymphocytes (%) (Auto) 23 % (24-48) Monocytes (%) (Auto) 7 % (0-9) Eosinophils (%) (Auto) 0 % (0-3) Basophils (%) (Auto) 0 % (0-3) Neutrophils # (Auto) 10.0 x10^3uL (1.8-7.7) Lymphocytes # (Auto) 3.4 x10^3/uL (1.0-4.8) Monocytes # (Auto) 1.0 x10^3/uL (0.0-1.1) Eosinophils # (Auto) 0.0 x10^3/uL (0.0-0.7) Basophils # (Auto) 0.1 x10^3/uL (0.0-0.2) Sodium Level 144 mmol/L (136-145) Potassium Level 4.4 mmol/L (3.5-5.1) Chloride Level 107 mmol/L (98-107) Carbon Dioxide Level 33 mmol/L (21-32) Anion Gap 4 (6-14) Blood Urea Nitrogen 15 mg/dL (7-20) Creatinine 0.8 mg/dL (0.6-1.0) Estimated GFR (Cockcroft-Gault) 72.2 BUN/Creatinine Ratio 19 (6-20) Glucose Level 98 mg/dL (70-99) Calcium Level 9.5 mg/dL (8.5-10.1) Total Bilirubin 0.2 mg/dL (0.2-1.0) Aspartate Amino Transf (AST/SGOT) 26 U/L (15-37) Alanine Aminotransferase (ALT/SGPT) 51 U/L (14-59) Alkaline Phosphatase 73 U/L (46-116) Total Protein 7.2 g/dL (6.4-8.2) Albumin 3.2 g/dL (3.4-5.0) Albumin/Globulin Ratio 0.8 (1.0-1.7) Test 03/16/17 07:52 03/16/17 11:27 Glucose (Fingerstick) 74 mg/dL (70-99) 126 mg/dL (70-99) Medications Active Scripts Medications Dose Route/Sig Max Daily Dose Days Date Category Duoneb 0.5-3(2.5) Mg/3 Ml (Albuterol/Ipratropium) 3 Ml Ampul.neb 3 Ml NEB QID 03/14/17 Reported Ventolin Hfa Inhaler (Albuterol Sulfate) 18 Gm Hfa.aer.ad 2 Puff INH Q4HRS 03/13/17 Reported Nystatin 100,000 Unit/1 Ml Oral.susp 100,000 Unit PO 03/13/17 Reported Mucinex (Guaifenesin) 1,200 Mg Tbmp.12hr 1,200 Mg PO PRN BID PRN 03/13/17 Reported Arthritis Pain Relief (Acetaminophen) 650 Mg Tablet.er 650 Mg PO 03/13/17 Reported Melatonin 3 Mg Tablet 10 Mg PO 03/13/17 Reported Hydroxyzine Hcl 25 Mg Tablet 1-2 Tab PO TID 01/24/15 Rx Xanax (Alprazolam) 0.5 Mg Tablet 0.5 Mg PO PRN Q6HRS PRN 01/24/15 Rx Hydrocodone-Apap 7.5-325 (Hydrocodone Bit/Acetaminophen) 1 Each Tablet 1 Tab PO PRN Q6HRS PRN 01/24/15 Rx Zithromax (Azithromycin) 250 Mg Tablet 250 Mg PO DAILY 01/24/15 Rx Pepcid (Famotidine) 20 Mg Tablet 40 Mg PO HS 01/24/15 Rx Omeprazole 40 Mg Capsule.dr 40 Mg PO DAILY 01/24/15 Rx Zofran (Ondansetron Hcl) 4 Mg Tablet 4 Mg PO BID PRN 01/24/15 Rx Voltaren (Diclofenac Sodium) 100 Gm Gel..gram. 1 Gm TP QID 02/02/14 Reported Singulair Tablet (Montelukast Sodium) 10 Mg Tablet 1 Tab PO DAILY 02/02/14 Reported Deep Sea (Sodium Chloride) 44 Ml [place] 2 [place] NS Q4HRS 02/02/14 Reported Colace (Docusate Sodium) 100 Mg Capsule 1 Cap PO BID PRN 02/02/14 Reported Flonase (Fluticasone Propionate) 16 Gm [place].susp 2 [place] NS DAILY 02/02/14 Reported Clotrimazole-Betamethasone Crm (Clotrimazole/Betamethasone Dip) 15 Gm Cream..g. 1 [place] TP PRN PRN 02/02/14 Reported Triamcinolone Acetonide 0.5% Cream (Triamcinolone Acetonide) 15 Gm Cream..g. 1 [place] TP PRN PRN 02/02/14 Reported Clobetasol Propionate 15 Gm Cream..g. 1 [place] TP PRN PRN 02/02/14 Reported Prednisone 10 Mg Tablet 10 Mg PO DAILY PRN 02/02/14 Reported Cyclobenzaprine Hcl 10 Mg Tablet 1 Tab PO TID PRN 02/02/14 Reported Lasix (Furosemide) 40 Mg Tablet 1 Tab PO DAILY 02/02/14 Reported Potassium Chloride 20 Meq Tab.er.prt 20 Meq PO DAILY 02/02/14 Reported Impression . 1. Acute on chronic respiratory failure secondary to pneumonia. 2. Acute exacerbation of COPD 3. Suspect gram-negative, gram-positive pneumonia. 4. Abnormal ct chest. New mass like consolidation RUL, chronic mild fibrotic changes RUL. 5. Bipolar disorder. 6. Hypertension. 7. Restless legs syndrome. Plan . 1. Continue current antibiotics. 2. repeat CT chest in 4-6 weeks to r/o improvement in RUL mass like consolidation 3. Continue oxygen supplementation. 4. Nebulized treatments. 5. DVT prophylaxis. JAGDISH CARTER MD Mar 16, 2017 11:57
[2017-03-16] MEDS: NYSTATIN TOPICAL POWDER 15GM BOTTLE. TP SCH ×2 (12:04→21:29)
[2017-03-16 19:00] VITALS: BP 135/79
[2017-03-16] MEDS: ALBUTEROL SULFATE 2.5 MG/3 ML NEBU. NEB PRN (20:09)
[2017-03-16] MEDS: DOCUSATE SODIUM 100 MG CAPSULE. PO PRN (21:32)
[2017-03-16 23:00] VITALS: BP 124/73
[2017-03-17] MEDS: ALBUTEROL SULFATE 2.5 MG/3 ML NEBU. NEB PRN (02:36)
[2017-03-17 03:00] VITALS: BP 132/71
[2017-03-17 04:55] LABS: BASO # 0.1 x10^3/uL (0.0-0.2); BASO % 1 % (0-3); EOS % 0 % (0-3); HEMATOCRIT 38.3 % (36.0-47.0); LYMPH # 3.6 x10^3/uL (1.0-4.8); LYMPH % 28 % (24-48); MEAN CORPUSCULAR HEMOGLOBIN 26 pg (25-35); MEAN CORPUSCULAR HGB CONC 31 g/dL (31-37); MEAN CORPUSCULAR VOLUME 82 fL (79-100); MONO % 9 % (0-9); NEUT % 63 % (31-73); PLATELET COUNT 469 x10^3/uL (140-400); RED BLOOD COUNT 4.66 x10^6/uL (3.50-5.40); RED CELL DISTRIBUTION WIDTH 14.6 % (11.5-14.5); WHITE BLOOD COUNT 13.1 x10^3/uL (4.0-11.0)
[2017-03-17 07:00] VITALS: BP 165/97
[2017-03-17 07:09] LABS: ALBUMIN 3.2 g/dL (3.4-5.0); ALBUMIN/GLOBULIN RATIO 0.8 (1.0-1.7); CALCIUM 9.2 mg/dL (8.5-10.1); CREATININE 0.9 mg/dL (0.6-1.0); TOTAL BILIRUBIN 0.2 mg/dL (0.2-1.0)
[2017-03-17] MEDS: INSULIN ASPART 300 UNITS/3 ML INSULN.PEN SQ SCH (07:30)
[2017-03-17] MEDS: IPRATRPIUM/ALBUTEROL 0.5/2.5MG 3 ML NEBU. NEB SCH (08:17)
[2017-03-17] MEDS: BUDESONIDE 0.5 MG/2 ML NEBU. NEB SCH (08:17)
--- NOTE | 2017-03-17 08:24 | PDOC ---
Infectious Disease Note Subjective Subjective Better and hoping to go home toda No BM yet but mild flatus and feels like it is close Nonproductive cough Supplemental O2 at baseline of 3L NC Denies CP ROS ROS GEN: Denies fevers, chills, sweats HEENT: Denies blurred vision, sore throat CV: Denies chest pain RESP: Denies shortness of air, cough GI: Denies n/v/d NEURO: Denies confusion, dizziness MSK: Denies weakness, joint pain/swelling Vital Sign Vital Signs Vital Signs Date Time Temp Pulse Resp B/P (MAP) Pulse Ox O2 Delivery O2 Flow Rate FiO2 03/17/17 08:17 98 Nasal Cannula 3.0 03/17/17 03:00 97.4 80 20 132/71 (91) 97.4 Physical Exam PHYSICAL EXAM GENERAL: NAD, Alert HEENT: PERRL, OC/OP- clear NECK: Supple, no JVD, no LN LUNGS: Clear HEART: S1S2, no gallop, no murmur ABD: Soft, NT, obese, no rebound EXT: No edema, no cyanosis DEVELOPMENT TEAM LEAD: Alert, oriented x 3, no focal neurologic deficit SKIN: No rash IV: ok Labs Lab Laboratory Tests Test 03/16/17 11:27 03/16/17 17:25 03/16/17 20:26 03/17/17 04:00 Glucose (Fingerstick) 126 mg/dL (70-99) 164 mg/dL (70-99) 105 mg/dL (70-99) White Blood Count 13.1 x10^3/uL (4.0-11.0) Red Blood Count 4.66 x10^6/uL (3.50-5.40) Hemoglobin 12.0 g/dL (12.0-15.5) Hematocrit 38.3 % (36.0-47.0) Mean Corpuscular Volume 82 fL (79-100) Mean Corpuscular Hemoglobin 26 pg (25-35) Mean Corpuscular Hemoglobin Concent 31 g/dL (31-37) Red Cell Distribution Width 14.6 % (11.5-14.5) Platelet Count 469 x10^3/uL (140-400) Neutrophils (%) (Auto) 63 % (31-73) Lymphocytes (%) (Auto) 28 % (24-48) Monocytes (%) (Auto) 9 % (0-9) Eosinophils (%) (Auto) 0 % (0-3) Basophils (%) (Auto) 1 % (0-3) Neutrophils # (Auto) 8.2 x10^3uL (1.8-7.7) Lymphocytes # (Auto) 3.6 x10^3/uL (1.0-4.8) Monocytes # (Auto) 1.1 x10^3/uL (0.0-1.1) Eosinophils # (Auto) 0.0 x10^3/uL (0.0-0.7) Basophils # (Auto) 0.1 x10^3/uL (0.0-0.2) Test 03/17/17 05:00 03/17/17 07:23 Sodium Level 142 mmol/L (136-145) Potassium Level 4.0 mmol/L (3.5-5.1) Chloride Level 103 mmol/L (98-107) Carbon Dioxide Level 36 mmol/L (21-32) Anion Gap 3 (6-14) Blood Urea Nitrogen 20 mg/dL (7-20) Creatinine 0.9 mg/dL (0.6-1.0) Estimated GFR (Cockcroft-Gault) 63.0 BUN/Creatinine Ratio 22 (6-20) Glucose Level 91 mg/dL (70-99) Calcium Level 9.2 mg/dL (8.5-10.1) Total Bilirubin 0.2 mg/dL (0.2-1.0) Aspartate Amino Transf (AST/SGOT) 22 U/L (15-37) Alanine Aminotransferase (ALT/SGPT) 54 U/L (14-59) Alkaline Phosphatase 76 U/L (46-116) Total Protein 7.0 g/dL (6.4-8.2) Albumin 3.2 g/dL (3.4-5.0) Albumin/Globulin Ratio 0.8 (1.0-1.7) Glucose (Fingerstick) 92 mg/dL (70-99) Micro CT chest Impression: 1. Moderate sized foci of of consolidation or less likely mass identified in the right upper lobe of the lung. Differential includes pneumonia or atypical infection or less likely neoplasm Follow-up to resolution. 2. Scattered foci of airspace opacities identified in the right upper lobe, left upper lobe, left lower lobe of the lung with tree-in-bud airspace opacities identified in the right lung could be interstitial changes or atypical infection. 3. Coronary artery calcifications. 4. Mild prominent appearing mediastinal lymph nodes probably reactive. Objective Assessment Pneumonia Bronchiectasis COPD Asthma constipation Plan Plan of Care Cont Rocephin and azithromycin. Can change to Cefpodoxime and treat through . Azithromycin through 03/18 if ready for discharge On steriods miralax. Trying Prune juice again this am Sputum culture & AFB pending KELVIN SAN MD Mar 17, 2017 08:24
--- NOTE | 2017-03-17 08:38 | PDOC3 ---
NEENA FABIAN SPECIAL NEEDS NANNY 03/17/17 0838: IM DISCHARGE & PROGRESS NOTES Date of Admission Date of Admission Date of Admission: Mar 14, 2017 at 10:28 Date of Discharge Date of Discharge 03/17/17 Consults Consults Eric Argueta MD, Dr. Procedures Procedures Examination: CT chest with IV contrast History: History of shortness of breath, lung nodule Comparison: 01/19/2015. Technique: Axial CT images of the chest were performed with IV contrast. Coronal and sagittal reformats were performed. PQRS Compliance Statement: One or more of the following individualized dose reduction techniques were utilized for this examination: 1. Automated exposure control 2. Adjustment of the mA and/or kV according to patient size 3. Use of iterative reconstruction technique Findings: The visualized thyroid gland grossly appears unremarkable. The central airways are patent. Few prominent mediastinal lymph nodes identified with the largest measuring 1.4 cm in the pretracheal region. The heart size grossly appears unremarkable. Coronary artery calcifications identified. Multiple patchy airspace opacities identified in the right upper lobe of the lung. There is a focus of consolidation or mass identified in the right apical lung measuring 3.4 x 2.8 cm. There is another focus of consolidation identified in the right apical lung posteriorly measuring 2.8 cm. Scattered patchy airspace opacities identified in the bilateral lungs involving the right upper lobe, left upper lobe, left lower lobe of the lung likely atelectasis or infiltrate. Few tree-in-bud airspace opacities identified in the peripheral aspect of the right upper, middle and lower lung lobes. No evidence of pleural effusion or pneumothorax. The visualized liver, spleen, adrenals grossly appears unremarkable Cholecystectomy clips are identified. Tiny cysts or cystic lesion identified in the left kidney measuring 3 mm. Compression changes of the midthoracic vertebral bodies with kyphoplasty changes again identified. Impression: 1. Moderate sized foci of of consolidation or less likely mass identified in the right upper lobe of the lung. Differential includes pneumonia or atypical infection or less likely neoplasm Follow-up to resolution. 2. Scattered foci of airspace opacities identified in the right upper lobe, left upper lobe, left lower lobe of the lung with tree-in-bud airspace opacities identified in the right lung could be interstitial changes or atypical infection. 3. Coronary artery calcifications. 4. Mild prominent appearing mediastinal lymph nodes probably reactive. DICTATED and SIGNED BY: MARIS DURÁN MD DATE: 03/14/17 [id number] Labs Labs Laboratory Tests Test 03/14/17 10:22 03/14/17 16:23 03/14/17 20:16 03/15/17 00:15 Glucose (Fingerstick) 94 mg/dL (70-99) 211 mg/dL (70-99) 146 mg/dL (70-99) Urine Collection Type Unknown Urine Color Yellow Urine Clarity Clear Urine pH 7.5 Urine Specific [place] >=1.030 Urine Protein Negative mg/dL (NEG-TRACE) Urine Glucose (UA) Negative mg/dL (NEG) Urine Ketones (Stick) Negative mg/dL (NEG) Urine Blood Negative (NEG) Urine Nitrite Negative (NEG) Urine Bilirubin Negative (NEG) Urine Urobilinogen Dipstick 0.2 mg/dL (0.2 mg/dL) Urine Leukocyte Esterase Negative (NEG) Urine RBC 0 /HPF (0-2) Urine WBC 0 /HPF (0-4) Urine Squamous Epithelial Cells Few /LPF Urine Bacteria 0 /HPF (0-FEW) Urine Mucus Slight /LPF Test 03/15/17 04:05 03/15/17 07:18 03/15/17 12:03 03/15/17 16:33 White Blood Count 12.2 x10^3/uL (4.0-11.0) Red Blood Count 4.53 x10^6/uL (3.50-5.40) Hemoglobin 11.8 g/dL (12.0-15.5) Hematocrit 37.6 % (36.0-47.0) Mean Corpuscular Volume 83 fL (79-100) Mean Corpuscular Hemoglobin 26 pg (25-35) Mean Corpuscular Hemoglobin Concent 32 g/dL (31-37) Red Cell Distribution Width 14.7 % (11.5-14.5) Platelet Count 464 x10^3/uL (140-400) Neutrophils (%) (Auto) 78 % (31-73) Lymphocytes (%) (Auto) 15 % (24-48) Monocytes (%) (Auto) 7 % (0-9) Eosinophils (%) (Auto) 0 % (0-3) Basophils (%) (Auto) 0 % (0-3) Neutrophils # (Auto) 9.5 x10^3uL (1.8-7.7) Lymphocytes # (Auto) 1.8 x10^3/uL (1.0-4.8) Monocytes # (Auto) 0.9 x10^3/uL (0.0-1.1) Eosinophils # (Auto) 0.0 x10^3/uL (0.0-0.7) Basophils # (Auto) 0.0 x10^3/uL (0.0-0.2) Sodium Level 143 mmol/L (136-145) Potassium Level 4.1 mmol/L (3.5-5.1) Chloride Level 106 mmol/L (98-107) Carbon Dioxide Level 31 mmol/L (21-32) Anion Gap 6 (6-14) Blood Urea Nitrogen 15 mg/dL (7-20) Creatinine 0.8 mg/dL (0.6-1.0) Estimated GFR (Cockcroft-Gault) 72.2 BUN/Creatinine Ratio 19 (6-20) Glucose Level 145 mg/dL (70-99) Calcium Level 9.8 mg/dL (8.5-10.1) Total Bilirubin 0.2 mg/dL (0.2-1.0) Aspartate Amino Transf (AST/SGOT) 32 U/L (15-37) Alanine Aminotransferase (ALT/SGPT) 51 U/L (14-59) Alkaline Phosphatase 79 U/L (46-116) Total Protein 7.5 g/dL (6.4-8.2) Albumin 3.3 g/dL (3.4-5.0) Albumin/Globulin Ratio 0.8 (1.0-1.7) Glucose (Fingerstick) 88 mg/dL (70-99) 115 mg/dL (70-99) 194 mg/dL (70-99) Test 03/15/17 20:55 03/16/17 05:55 03/16/17 07:52 03/16/17 11:27 Glucose (Fingerstick) 130 mg/dL (70-99) 74 mg/dL (70-99) 126 mg/dL (70-99) White Blood Count 14.5 x10^3/uL (4.0-11.0) Red Blood Count 4.50 x10^6/uL (3.50-5.40) Hemoglobin 11.9 g/dL (12.0-15.5) Hematocrit 36.6 % (36.0-47.0) Mean Corpuscular Volume 81 fL (79-100) Mean Corpuscular Hemoglobin 26 pg (25-35) Mean Corpuscular Hemoglobin Concent 32 g/dL (31-37) Red Cell Distribution Width 15.1 % (11.5-14.5) Platelet Count 461 x10^3/uL (140-400) Neutrophils (%) (Auto) 69 % (31-73) Lymphocytes (%) (Auto) 23 % (24-48) Monocytes (%) (Auto) 7 % (0-9) Eosinophils (%) (Auto) 0 % (0-3) Basophils (%) (Auto) 0 % (0-3) Neutrophils # (Auto) 10.0 x10^3uL (1.8-7.7) Lymphocytes # (Auto) 3.4 x10^3/uL (1.0-4.8) Monocytes # (Auto) 1.0 x10^3/uL (0.0-1.1) Eosinophils # (Auto) 0.0 x10^3/uL (0.0-0.7) Basophils # (Auto) 0.1 x10^3/uL (0.0-0.2) Sodium Level 144 mmol/L (136-145) Potassium Level 4.4 mmol/L (3.5-5.1) Chloride Level 107 mmol/L (98-107) Carbon Dioxide Level 33 mmol/L (21-32) Anion Gap 4 (6-14) Blood Urea Nitrogen 15 mg/dL (7-20) Creatinine 0.8 mg/dL (0.6-1.0) Estimated GFR (Cockcroft-Gault) 72.2 BUN/Creatinine Ratio 19 (6-20) Glucose Level 98 mg/dL (70-99) Calcium Level 9.5 mg/dL (8.5-10.1) Total Bilirubin 0.2 mg/dL (0.2-1.0) Aspartate Amino Transf (AST/SGOT) 26 U/L (15-37) Alanine Aminotransferase (ALT/SGPT) 51 U/L (14-59) Alkaline Phosphatase 73 U/L (46-116) Total Protein 7.2 g/dL (6.4-8.2) Albumin 3.2 g/dL (3.4-5.0) Albumin/Globulin Ratio 0.8 (1.0-1.7) Test 03/16/17 17:25 03/16/17 20:26 03/17/17 04:00 03/17/17 05:00 Glucose (Fingerstick) 164 mg/dL (70-99) 105 mg/dL (70-99) White Blood Count 13.1 x10^3/uL (4.0-11.0) Red Blood Count 4.66 x10^6/uL (3.50-5.40) Hemoglobin 12.0 g/dL (12.0-15.5) Hematocrit 38.3 % (36.0-47.0) Mean Corpuscular Volume 82 fL (79-100) Mean Corpuscular Hemoglobin 26 pg (25-35) Mean Corpuscular Hemoglobin Concent 31 g/dL (31-37) Red Cell Distribution Width 14.6 % (11.5-14.5) Platelet Count 469 x10^3/uL (140-400) Neutrophils (%) (Auto) 63 % (31-73) Lymphocytes (%) (Auto) 28 % (24-48) Monocytes (%) (Auto) 9 % (0-9) Eosinophils (%) (Auto) 0 % (0-3) Basophils (%) (Auto) 1 % (0-3) Neutrophils # (Auto) 8.2 x10^3uL (1.8-7.7) Lymphocytes # (Auto) 3.6 x10^3/uL (1.0-4.8) Monocytes # (Auto) 1.1 x10^3/uL (0.0-1.1) Eosinophils # (Auto) 0.0 x10^3/uL (0.0-0.7) Basophils # (Auto) 0.1 x10^3/uL (0.0-0.2) Sodium Level 142 mmol/L (136-145) Potassium Level 4.0 mmol/L (3.5-5.1) Chloride Level 103 mmol/L (98-107) Carbon Dioxide Level 36 mmol/L (21-32) Anion Gap 3 (6-14) Blood Urea Nitrogen 20 mg/dL (7-20) Creatinine 0.9 mg/dL (0.6-1.0) Estimated GFR (Cockcroft-Gault) 63.0 BUN/Creatinine Ratio 22 (6-20) Glucose Level 91 mg/dL (70-99) Calcium Level 9.2 mg/dL (8.5-10.1) Total Bilirubin 0.2 mg/dL (0.2-1.0) Aspartate Amino Transf (AST/SGOT) 22 U/L (15-37) Alanine Aminotransferase (ALT/SGPT) 54 U/L (14-59) Alkaline Phosphatase 76 U/L (46-116) Total Protein 7.0 g/dL (6.4-8.2) Albumin 3.2 g/dL (3.4-5.0) Albumin/Globulin Ratio 0.8 (1.0-1.7) Test 03/17/17 07:23 Glucose (Fingerstick) 92 mg/dL (70-99) Medications Medications Medications reviewed and reconciled for discharge. Brief hospital course Brief hospital course This 66 year old female who presented with acute on chronic respiratory failure 1. pneumonia gram neg gram + presentation out patient treatment failure - no sepsis 2. COPD with exacerbation 3. GERD 4. A/C respiratory failure with COPD, asthma, oxygen dependent 5. hypokalemia resolved 6. hyperlipidemia 7. Bipolar I disorder 8. chronic carpal tunnel syndrome 9. DM II diet control 10. fibromyalgia 11. gastroparesis 12. Hiatal Hernia 13. osteoporosis 14. allergic rhinitis 15. DDD LS 16. depression PLAN: 03/17/17 pneumonia - CT chest new mass like consolidation RUL; chronic mild fibrotic changes RLL--Rocephin IV change to Vantin at DC - continue Zithromax 250mg daily --repeat CT 4-6 weeks to eval RUL consolidation no sepsis -- gram stain sputum negative asthma exacerbation - solu medrol at 40mg IV daily - home with tapering dose - WPF [id number]--MCB pending DM - controlled BS 92-164 HTN - stable DC initiated 03/14/17 pneumonia- pulmonary consult; ID consult: rocephin-zithromax; nebulizer treatment; mucinex 1200mg bid; COPD/asthma exacerbation -IV solumedrol 125mgx 1, then 80mg IV q8hr DM II-SSI for potential hyperglcemia steroid induced DVT/GI prophylaxis -SCD/PPI For more details regarding the past history, family history, social history, surgical history and other details, please refer to History and Physical. Please see DC orders. F/U in office . Subjective wants to go home Objective alert no distress Vitals Vital Signs Date Time Temp Pulse Resp B/P (MAP) Pulse Ox O2 Delivery O2 Flow Rate FiO2 03/17/17 08:17 98 Nasal Cannula 3.0 03/17/17 03:00 97.4 80 20 132/71 (91) 97.4 Physical Exam General appearance - alert ill appearing, and in no distress Mental Status - alert, oriented to person, place, and time, moderate distress Head - normal Chest - increased air movement R ant, wheezing R lower lobe Heart - S1 and S2 normal Abdomen - soft, nontender, nondistended, obese, BS + Neurological - no acute focal neurological deficits Musculoskeletal - no muscular tenderness noted Extremities - no pedal edema Skin - warm and dry Medications Medications reviewed. Allergy Allergies Coded Allergies Type Severity Reaction Last Updated Verified Penicillins Allergy Intermediate rash 03/13/17 Yes amoxicillin Allergy Intermediate asthma 03/13/17 Yes carvedilol Allergy Intermediate asthma 03/13/17 Yes cinnamon Allergy Intermediate 03/13/17 Yes clavulanic acid Allergy Intermediate asthma 03/13/17 Yes codeine Allergy Intermediate hallucinations and itching 03/13/17 Yes lemon Allergy Intermediate 03/13/17 No morphine Allergy Intermediate Rash 03/13/17 No olanzapine Allergy Intermediate asthma 03/13/17 Yes perfume Allergy Intermediate 03/13/17 Yes ropinirole Allergy Intermediate asthma 03/13/17 Yes tree nut Allergy Intermediate 03/13/17 Yes doxycycline Adverse Reaction Intermediate nausea 03/13/17 Yes losartan Adverse Reaction Intermediate excessive sleepiness 03/13/17 Yes zolpidem Adverse Reaction Intermediate sleep walking and eating 03/13/17 Yes Uncoded Allergies Type Severity Reaction Last Updated Verified vanilla Allergy Intermediate 02/03/14 Follow up with Rudi or Dr. Samuel Disposition: Home Comments Discharge Management - 35 minutes. For other details please refer to discharge instructions YIMI SAMUEL MD 03/17/17 0918: IM DISCHARGE & PROGRESS NOTES Brief hospital course Brief hospital course The patient was seen and examined by me. Chart reviewed and plan of care formulated. Discussed with, reviewed and agree with DOUGH MACHINE OPERATOR's notes, plan of care and orders with modifications as necessary. Discharge Management - 35 minutes. NEENA FABIAN APRN Mar 17, 2017 08:38 YIMI SAMUEL MD Mar 17, 2017 09:18
--- NOTE | 2017-03-17 08:43 | DISCH ---
DISCHARGE INSTRUCTIONS Condition on Discharge Condition on Discharge: Stable Activity After Discharge Activity Instructions for Disc: Activity as tolerated Weight Bearing Status after Di: Full weight bearing Diet after Discharge Diet after Discharge: Cardiac Checks after Discharge DC Comment: check BS daily --WPF notify MD if less than 150 Contacting the DRGalina after DC Call your doctor for: Concerns you may have Follow-Up Follow up with: Dr. Samuel or Rudi on Treatment/Equipment after DC Discharge Respiratory Equipmen: Oxygen (3L NC ), Nebulizer (QID ) NEENA FABIAN APRN Mar 17, 2017 08:43
[2017-03-17] MEDS ORDERED: POLY17PO3 PO (08:51)
[2017-03-17] MEDS ORDERED: PRED-220 PO (08:51)
[2017-03-17] MEDS ORDERED: CEFP200T PO (08:51)
[2017-03-17] MEDS ORDERED: methylPREDNISolone SOD SUCC PF 40 MG/ML VIAL. IV SCH (09:00)
[2017-03-17] MEDS: DOCUSATE SODIUM 100 MG CAPSULE. PO PRN (09:09)
[2017-03-17] MEDS: AZITHROMYCIN 250 MG TABLET. PO SCH (09:10)
[2017-03-17] MEDS: POTASSIUM CHLORIDE 20 MEQ TABLET.ER. PO SCH (09:10)
[2017-03-17] MEDS: MONTELUKAST SODIUM 10 MG TABLET. PO SCH (09:11)
[2017-03-17] MEDS: FUROSEMIDE 40 MG TABLET. PO SCH (09:11)
[2017-03-17] MEDS: POLYETHYLENE GLYCOL 3350 17 GM PACKET. PO SCH (09:11)
[2017-03-17] MEDS: PANTOPRAZOLE 40 MG TABLET.DR. PO SCH (09:11)
[2017-03-17] MEDS: FLUTICASONE 50MCG/NASAL SPRAY 16GM BOTTLE. NS SCH (09:13)
--- NOTE | 2017-03-17 09:13 | PDOC ---
PULMONARY PROGRESS NOTES Subjective less soa, less cough Vitals Vital Signs Date Time Temp Pulse Resp B/P (MAP) Pulse Ox O2 Delivery O2 Flow Rate FiO2 03/17/17 08:17 98 Nasal Cannula 3.0 03/17/17 07:00 97.7 84 20 165/97 (119) 97.7 General: Alert, Oriented X4, No acute distress Lungs: Wheezing (faint) Cardiovascular: S1, S2 Abdomen: Soft, Non-tender Neuro Exam: Alert Extremities: No Edema Skin: Warm Labs Laboratory Tests Test 03/15/17 12:03 03/15/17 16:33 03/15/17 20:55 03/16/17 05:55 Glucose (Fingerstick) 115 mg/dL (70-99) 194 mg/dL (70-99) 130 mg/dL (70-99) White Blood Count 14.5 x10^3/uL (4.0-11.0) Red Blood Count 4.50 x10^6/uL (3.50-5.40) Hemoglobin 11.9 g/dL (12.0-15.5) Hematocrit 36.6 % (36.0-47.0) Mean Corpuscular Volume 81 fL (79-100) Mean Corpuscular Hemoglobin 26 pg (25-35) Mean Corpuscular Hemoglobin Concent 32 g/dL (31-37) Red Cell Distribution Width 15.1 % (11.5-14.5) Platelet Count 461 x10^3/uL (140-400) Neutrophils (%) (Auto) 69 % (31-73) Lymphocytes (%) (Auto) 23 % (24-48) Monocytes (%) (Auto) 7 % (0-9) Eosinophils (%) (Auto) 0 % (0-3) Basophils (%) (Auto) 0 % (0-3) Neutrophils # (Auto) 10.0 x10^3uL (1.8-7.7) Lymphocytes # (Auto) 3.4 x10^3/uL (1.0-4.8) Monocytes # (Auto) 1.0 x10^3/uL (0.0-1.1) Eosinophils # (Auto) 0.0 x10^3/uL (0.0-0.7) Basophils # (Auto) 0.1 x10^3/uL (0.0-0.2) Sodium Level 144 mmol/L (136-145) Potassium Level 4.4 mmol/L (3.5-5.1) Chloride Level 107 mmol/L (98-107) Carbon Dioxide Level 33 mmol/L (21-32) Anion Gap 4 (6-14) Blood Urea Nitrogen 15 mg/dL (7-20) Creatinine 0.8 mg/dL (0.6-1.0) Estimated GFR (Cockcroft-Gault) 72.2 BUN/Creatinine Ratio 19 (6-20) Glucose Level 98 mg/dL (70-99) Calcium Level 9.5 mg/dL (8.5-10.1) Total Bilirubin 0.2 mg/dL (0.2-1.0) Aspartate Amino Transf (AST/SGOT) 26 U/L (15-37) Alanine Aminotransferase (ALT/SGPT) 51 U/L (14-59) Alkaline Phosphatase 73 U/L (46-116) Total Protein 7.2 g/dL (6.4-8.2) Albumin 3.2 g/dL (3.4-5.0) Albumin/Globulin Ratio 0.8 (1.0-1.7) Test 03/16/17 07:52 03/16/17 11:27 03/16/17 17:25 03/16/17 20:26 Glucose (Fingerstick) 74 mg/dL (70-99) 126 mg/dL (70-99) 164 mg/dL (70-99) 105 mg/dL (70-99) Test 03/17/17 04:00 03/17/17 05:00 03/17/17 07:23 White Blood Count 13.1 x10^3/uL (4.0-11.0) Red Blood Count 4.66 x10^6/uL (3.50-5.40) Hemoglobin 12.0 g/dL (12.0-15.5) Hematocrit 38.3 % (36.0-47.0) Mean Corpuscular Volume 82 fL (79-100) Mean Corpuscular Hemoglobin 26 pg (25-35) Mean Corpuscular Hemoglobin Concent 31 g/dL (31-37) Red Cell Distribution Width 14.6 % (11.5-14.5) Platelet Count 469 x10^3/uL (140-400) Neutrophils (%) (Auto) 63 % (31-73) Lymphocytes (%) (Auto) 28 % (24-48) Monocytes (%) (Auto) 9 % (0-9) Eosinophils (%) (Auto) 0 % (0-3) Basophils (%) (Auto) 1 % (0-3) Neutrophils # (Auto) 8.2 x10^3uL (1.8-7.7) Lymphocytes # (Auto) 3.6 x10^3/uL (1.0-4.8) Monocytes # (Auto) 1.1 x10^3/uL (0.0-1.1) Eosinophils # (Auto) 0.0 x10^3/uL (0.0-0.7) Basophils # (Auto) 0.1 x10^3/uL (0.0-0.2) Sodium Level 142 mmol/L (136-145) Potassium Level 4.0 mmol/L (3.5-5.1) Chloride Level 103 mmol/L (98-107) Carbon Dioxide Level 36 mmol/L (21-32) Anion Gap 3 (6-14) Blood Urea Nitrogen 20 mg/dL (7-20) Creatinine 0.9 mg/dL (0.6-1.0) Estimated GFR (Cockcroft-Gault) 63.0 BUN/Creatinine Ratio 22 (6-20) Glucose Level 91 mg/dL (70-99) Calcium Level 9.2 mg/dL (8.5-10.1) Total Bilirubin 0.2 mg/dL (0.2-1.0) Aspartate Amino Transf (AST/SGOT) 22 U/L (15-37) Alanine Aminotransferase (ALT/SGPT) 54 U/L (14-59) Alkaline Phosphatase 76 U/L (46-116) Total Protein 7.0 g/dL (6.4-8.2) Albumin 3.2 g/dL (3.4-5.0) Albumin/Globulin Ratio 0.8 (1.0-1.7) Glucose (Fingerstick) 92 mg/dL (70-99) Laboratory Tests Test 03/16/17 11:27 03/16/17 17:25 03/16/17 20:26 03/17/17 04:00 Glucose (Fingerstick) 126 mg/dL (70-99) 164 mg/dL (70-99) 105 mg/dL (70-99) White Blood Count 13.1 x10^3/uL (4.0-11.0) Red Blood Count 4.66 x10^6/uL (3.50-5.40) Hemoglobin 12.0 g/dL (12.0-15.5) Hematocrit 38.3 % (36.0-47.0) Mean Corpuscular Volume 82 fL (79-100) Mean Corpuscular Hemoglobin 26 pg (25-35) Mean Corpuscular Hemoglobin Concent 31 g/dL (31-37) Red Cell Distribution Width 14.6 % (11.5-14.5) Platelet Count 469 x10^3/uL (140-400) Neutrophils (%) (Auto) 63 % (31-73) Lymphocytes (%) (Auto) 28 % (24-48) Monocytes (%) (Auto) 9 % (0-9) Eosinophils (%) (Auto) 0 % (0-3) Basophils (%) (Auto) 1 % (0-3) Neutrophils # (Auto) 8.2 x10^3uL (1.8-7.7) Lymphocytes # (Auto) 3.6 x10^3/uL (1.0-4.8) Monocytes # (Auto) 1.1 x10^3/uL (0.0-1.1) Eosinophils # (Auto) 0.0 x10^3/uL (0.0-0.7) Basophils # (Auto) 0.1 x10^3/uL (0.0-0.2) Test 03/17/17 05:00 03/17/17 07:23 Sodium Level 142 mmol/L (136-145) Potassium Level 4.0 mmol/L (3.5-5.1) Chloride Level 103 mmol/L (98-107) Carbon Dioxide Level 36 mmol/L (21-32) Anion Gap 3 (6-14) Blood Urea Nitrogen 20 mg/dL (7-20) Creatinine 0.9 mg/dL (0.6-1.0) Estimated GFR (Cockcroft-Gault) 63.0 BUN/Creatinine Ratio 22 (6-20) Glucose Level 91 mg/dL (70-99) Calcium Level 9.2 mg/dL (8.5-10.1) Total Bilirubin 0.2 mg/dL (0.2-1.0) Aspartate Amino Transf (AST/SGOT) 22 U/L (15-37) Alanine Aminotransferase (ALT/SGPT) 54 U/L (14-59) Alkaline Phosphatase 76 U/L (46-116) Total Protein 7.0 g/dL (6.4-8.2) Albumin 3.2 g/dL (3.4-5.0) Albumin/Globulin Ratio 0.8 (1.0-1.7) Glucose (Fingerstick) 92 mg/dL (70-99) Medications Active Scripts Medications Dose Route/Sig Max Daily Dose Days Date Category Duoneb 0.5-3(2.5) Mg/3 Ml (Albuterol/Ipratropium) 3 Ml Ampul.neb 3 Ml NEB QID 03/14/17 Reported Ventolin Hfa Inhaler (Albuterol Sulfate) 18 Gm Hfa.aer.ad 2 Puff INH Q4HRS 03/13/17 Reported Nystatin 100,000 Unit/1 Ml Oral.susp 100,000 Unit PO 03/13/17 Reported Mucinex (Guaifenesin) 1,200 Mg Tbmp.12hr 1,200 Mg PO PRN BID PRN 03/13/17 Reported Arthritis Pain Relief (Acetaminophen) 650 Mg Tablet.er 650 Mg PO 03/13/17 Reported Melatonin 3 Mg Tablet 10 Mg PO 03/13/17 Reported Hydroxyzine Hcl 25 Mg Tablet 1-2 Tab PO TID 01/24/15 Rx Xanax (Alprazolam) 0.5 Mg Tablet 0.5 Mg PO PRN Q6HRS PRN 01/24/15 Rx Hydrocodone-Apap 7.5-325 (Hydrocodone Bit/Acetaminophen) 1 Each Tablet 1 Tab PO PRN Q6HRS PRN 01/24/15 Rx Zithromax (Azithromycin) 250 Mg Tablet 250 Mg PO DAILY 01/24/15 Rx Pepcid (Famotidine) 20 Mg Tablet 40 Mg PO HS 01/24/15 Rx Omeprazole 40 Mg Capsule.dr 40 Mg PO DAILY 01/24/15 Rx Zofran (Ondansetron Hcl) 4 Mg Tablet 4 Mg PO BID PRN 01/24/15 Rx Voltaren (Diclofenac Sodium) 100 Gm Gel..gram. 1 Gm TP QID 02/02/14 Reported Singulair Tablet (Montelukast Sodium) 10 Mg Tablet 1 Tab PO DAILY 02/02/14 Reported Deep Sea (Sodium Chloride) 44 Ml [place] 2 [place] NS Q4HRS 02/02/14 Reported Colace (Docusate Sodium) 100 Mg Capsule 1 Cap PO BID PRN 02/02/14 Reported Flonase (Fluticasone Propionate) 16 Gm [place].susp 2 [place] NS DAILY 02/02/14 Reported Clotrimazole-Betamethasone Crm (Clotrimazole/Betamethasone Dip) 15 Gm Cream..g. 1 [place] TP PRN PRN 02/02/14 Reported Triamcinolone Acetonide 0.5% Cream (Triamcinolone Acetonide) 15 Gm Cream..g. 1 [place] TP PRN PRN 02/02/14 Reported Clobetasol Propionate 15 Gm Cream..g. 1 [place] TP PRN PRN 02/02/14 Reported Prednisone 10 Mg Tablet 10 Mg PO DAILY PRN 02/02/14 Reported Cyclobenzaprine Hcl 10 Mg Tablet 1 Tab PO TID PRN 02/02/14 Reported Lasix (Furosemide) 40 Mg Tablet 1 Tab PO DAILY 02/02/14 Reported Potassium Chloride 20 Meq Tab.er.prt 20 Meq PO DAILY 02/02/14 Reported Impression . 1. Acute on chronic respiratory failure secondary to pneumonia. 2. Acute exacerbation of COPD 3. Suspect gram-negative, gram-positive pneumonia. 4. Abnormal ct chest. New mass like consolidation RUL, chronic mild fibrotic changes RUL. 5. Bipolar disorder. 6. Hypertension. 7. Restless legs syndrome. Plan . 1. Continue current antibiotics. 2. repeat CT chest in 4-6 weeks to r/o improvement in RUL mass like consolidation 3. Continue oxygen supplementation. 4. Nebulized treatments. 5. DVT prophylaxis. CRISTINO KRUGER MD Mar 17, 2017 09:13
[2017-03-17] MEDS: NYSTATIN TOPICAL POWDER 15GM BOTTLE. TP SCH (09:14)
[2017-03-17] MEDS: DICLOFENAC SODIUM 1% TOPICAL GEL 100GM TUBE. TP SCH (09:14)
== END 2017-03-17 11:28 | disposition home or self-care (01) | DRG 189 ==
LOC: ER 16:52 → 5 NORTH 19:36 → OBSVTOIN 03-14 10:28
PROVIDERS: ADMIT Internal Medicine; ATTEND Internal Medicine
DX: J96.20 Acute and chronic respiratory failure, unspecified whether with hypoxia or hypercapnia (principal); J15.6 Pneumonia due to other Gram-negative bacteria; E11.22 Type 2 diabetes mellitus with diabetic chronic kidney disease; I13.0 Hypertensive heart and chronic kidney disease with heart failure and stage 1 through stage 4 chronic kidney disease, or unspecified chronic kidney disease; J44.0 Chronic obstructive pulmonary disease with (acute) lower respiratory infection; I50.9 Heart failure, unspecified; E11.42 Type 2 diabetes mellitus with diabetic polyneuropathy; K31.84 Gastroparesis; J44.1 Chronic obstructive pulmonary disease with (acute) exacerbation; E11.43 Type 2 diabetes mellitus with diabetic autonomic (poly)neuropathy; E11.65 Type 2 diabetes mellitus with hyperglycemia; T38.0X5A Adverse effect of glucocorticoids and synthetic analogues, initial encounter; E78.5 Hyperlipidemia, unspecified; E66.9 Obesity, unspecified; Z68.36 Body mass index [BMI] 36.0-36.9, adult; E86.0 Dehydration; E87.6 Hypokalemia; F15.980 Other stimulant use, unspecified with stimulant-induced anxiety disorder; F31.9 Bipolar disorder, unspecified; G25.81 Restless legs syndrome; G56.00 Carpal tunnel syndrome, unspecified upper limb; K21.9 Gastro-esophageal reflux disease without esophagitis; K44.9 Diaphragmatic hernia without obstruction or gangrene; K59.00 Constipation, unspecified; Z96.642 Presence of left artificial hip joint; M79.7 Fibromyalgia; M81.0 Age-related osteoporosis without current pathological fracture; F41.9 Anxiety disorder, unspecified; G89.29 Other chronic pain; M19.90 Unspecified osteoarthritis, unspecified site; M51.36 Other intervertebral disc degeneration, lumbar region; N18.2 Chronic kidney disease, stage 2 (mild); Z96.659 Presence of unspecified artificial knee joint; Z82.49 Family history of ischemic heart disease and other diseases of the circulatory system; Z87.891 Personal history of nicotine dependence; Z88.0 Allergy status to penicillin; Z88.1 Allergy status to other antibiotic agents; Z99.81 Dependence on supplemental oxygen; Z90.49 Acquired absence of other specified parts of digestive tract; Z88.6 Allergy status to analgesic agent; Z88.8 Allergy status to other drugs, medicaments and biological substances; Z91.018 Allergy to other foods; Z87.81 Personal history of (healed) traumatic fracture; Z79.4 Long term (current) use of insulin; Y92.89 Other specified places as the place of occurrence of the external cause
CPT/HCPCS: 36415; 71010; 71260; 80048; 80053; 81001; 82962; 85025; 87070; 87116; 87205; 90686; 94250; 94640; 94760; 96361; 96365; 96375; G0378; G0379; J0696; J1815; J1956; J2405; J2765; J2920; J2930; J7040; J7613; J7620; J7626; Q0144; Q9967; 99285-25

== ENCOUNTER → 2017-04-14 | Outpatient (CLI) | payer MEDICARE ==
[2017-03-17 07:00] VITALS: BP 165/97
[~2017-04-14] MED LIST changes: +ACET-804 PO; +CEFP200T PO; +IPRA0.2S5 NEB; +IPRA3AMP NEB; +MELA3TAB2 PO; +POLY17PO3 PO; +VENTOLIN HFA18 GM INH
--- NOTE | 2017-04-14 14:10 | KCIC ---
CT chest without contrast 04/14/2017 CLINICAL INDICATION: Follow-up lung mass versus infiltrate. COMPARISON: CT chest 03/14/2017, 01/19/2015, 11/21/2014. TECHNIQUE: Multiple CT images of the chest were obtained without contrast according to standard protocol. FINDINGS: CHEST: Heart size is normal without significant pericardial effusion. The thoracic aorta is normal in caliber with mild scattered calcified atheromatous disease. Coronary artery calcifications are noted. No axillary, mediastinal or obvious hilar lymphadenopathy, though evaluation is limited in the absence of intravenous contrast. The central airways are patent. There are scattered areas of pleural-parenchymal scarring in both lungs. Interval improvement in subpleural consolidation in the right upper lobe with residual groundglass opacities as seen on series 6/image 21. There is mild bronchiectasis in the bilateral lung apices. There are multiple scattered small probably tree-in-bud opacities throughout the right lung and to a lesser extent in the apical left upper lobe. Interval development of a noncalcified nodule in the basilar left lower lobe measuring 15 mm series 2/image 45. Stable compression deformities at T5-T6 with unchanged bony retropulsion and prior spinal augmentation. Limited images of the upper abdomen: Prior cholecystectomy. IMPRESSION: 1. Improvement in subpleural consolidation in the right upper lobe with residual groundglass opacities, likely representing resolving infectious or inflammatory consolidation. 2. Development of 15 mm opacity in the basilar left lower lobe, likely new infectious or inflammatory nodule. Follow-up CT chest in 6 months is recommended to assess for stability/resolution. 3. Scattered upper lobe predominant bronchiectasis and tree-in-bud opacities and fibrosis. Findings are commonly seen with Mycobacterium avium complex (MAC). Additional differential considerations include other atypical infectious etiologies. 4. Coronary artery calcifications. Electronically signed by: Joseph Rutledge MD (04/14/2017 2:07 PM) [id number]
== END | disposition home or self-care (01) ==
LOC: KCIC CT 12:55
PROVIDERS: ATTEND Internal Medicine Pulmonary Disease
DX: J47.9 Bronchiectasis, uncomplicated (principal); R91.1 Solitary pulmonary nodule
CPT/HCPCS: 71250

== ENCOUNTER 2017-07-31 11:40 | Emergency (ER) | payer MEDICARE ==
[2017-07-31] MEDS ORDERED: IPRATRPIUM/ALBUTEROL 0.5/2.5MG 3 ML NEBU. NEB ×4 (12:15→12:30)
[2017-07-31] MEDS: ALBUTEROL SULFATE 2.5 MG/3 ML NEBU. CONT NEB ×2 (12:51)
[2017-07-31] MEDS: IPRATRPIUM/ALBUTEROL 0.5/2.5MG 3 ML NEBU. NEB ×2 (12:51)
[2017-07-31 12:52] LABS: ADD MAN DIFF? NO
[2017-07-31 12:55] LABS: BASO # 0.1 x10^3/uL (0.0-0.2); BASO % 1 % (0-3); EOS # 0.9 x10^3/uL (0.0-0.7); EOS % 6 % (0-3); HEMATOCRIT 38.8 % (36.0-47.0); HEMOGLOBIN 12.9 g/dL (12.0-15.5); LYMPH # 3.1 x10^3/uL (1.0-4.8); LYMPH % 22 % (24-48); MEAN CORPUSCULAR HEMOGLOBIN 27 pg (25-35); MEAN CORPUSCULAR HGB CONC 33 g/dL (31-37); MEAN CORPUSCULAR VOLUME 83 fL (79-100); MONO # 1.5 x10^3/uL (0.0-1.1); MONO % 10 % (0-9); NEUT % 62 % (31-73); PLATELET COUNT 338 x10^3/uL (140-400); RED BLOOD COUNT 4.71 x10^6/uL (3.50-5.40); RED CELL DISTRIBUTION WIDTH 15.2 % (11.5-14.5); WHITE BLOOD COUNT 14.6 x10^3/uL (4.0-11.0)
[2017-07-31] MEDS: methylPREDNISolone SOD SUCC PF 125 MG/2 ML VIAL. IV ×2 (12:55)
[2017-07-31 13:07] LABS: ANION GAP 7 (6-14); BLOOD UREA NITROGEN 12 mg/dL (7-20); BUN/CREATININE RATIO 13 (6-20); CALCIUM 9.2 mg/dL (8.5-10.1); CARBON DIOXIDE 33 mmol/L (21-32); CHLORIDE 103 mmol/L (98-107); CREATININE 0.9 mg/dL (0.6-1.0); GFR 62.8; GLUCOSE 153 mg/dL (70-99); POTASSIUM 3.4 mmol/L (3.5-5.1); SODIUM 143 mmol/L (136-145)
[2017-07-31 13:13] LABS: ALBUMIN 3.2 g/dL (3.4-5.0); ALBUMIN/GLOBULIN RATIO 0.8 (1.0-1.7); ALK PHOS 74 U/L (46-116); ALT (SGPT) 29 U/L (14-59); AST (SGOT) 18 U/L (15-37); TOTAL BILIRUBIN 0.4 mg/dL (0.2-1.0); TOTAL PROTEIN 7.4 g/dL (6.4-8.2)
[2017-07-31 13:15] LABS: LACTIC ACID 1.3 mmol/L (0.4-2.0)
[2017-07-31 13:18] LABS: NT-PRO BNP 139 pg/mL (0-124)
[2017-07-31 13:53] LABS: INFLUENZA A PATIENT NEGATIVE (NEGATIVE); INFLUENZA B PATIENT NEGATIVE (NEGATIVE); OBC FLU VALID
== END 2017-07-31 14:33 | disposition home or self-care (01) ==
LOC: ER 11:40
DX: J44.1 Chronic obstructive pulmonary disease with (acute) exacerbation (principal); J18.9 Pneumonia, unspecified organism; I10 Essential (primary) hypertension; G89.29 Other chronic pain; K21.9 Gastro-esophageal reflux disease without esophagitis; M79.7 Fibromyalgia; E11.9 Type 2 diabetes mellitus without complications; G25.81 Restless legs syndrome; Z88.0 Allergy status to penicillin; Z88.1 Allergy status to other antibiotic agents; Z88.5 Allergy status to narcotic agent; Z88.8 Allergy status to other drugs, medicaments and biological substances; Z88.6 Allergy status to analgesic agent; Z91.018 Allergy to other foods; Z90.49 Acquired absence of other specified parts of digestive tract; Z98.51 Tubal ligation status
CPT/HCPCS: 36415; 71045; 80053; 83605; 83880; 85025; 87040; 87804; 87804-59; 94644; 96374; 99285-25; J2930; J7613; J7620

== ENCOUNTER → 2017-12-02 | Day surgery (SDC) | payer MEDICARE ==
[~2017-12-02] MED LIST changes: -ACET-804 PO; -ACET325T9 PO; -ALBU2.5V5 NEB; -ALPR0.5T PO; -AMLO2.5T2 PO; -AZIT250T PO; -AZIT500T4 PO; -B12/1TAB3 PO; -CEFP200T PO; -CHOL10003 PO; -CLOB15CR TP; -CLOT15CR5 TP; -CYCL10TA2 PO; -DESO15OI3 TP; -DICL100G18 TP; -DILT120C80 PO; -DIPH25CA58 PO; -DOCU-109 PO; -DOCU50CA9 PO; -FAMO-63 PO; -FLUT16SP2 NS; -FURO-68 PO; -GUAI12003 PO; -HYDR-2762 PO; -HYDR-971 PO; -HYDR25TA PO; -IPRA0.2S5 NEB; -IPRA3AMP IH; -IPRA3AMP NEB; -KETO15CR2 TP; +LIDOCAINE 1% PF 2 ML VIAL. ID; +LIDOCAINE 2% PF Vial for OR 5 ML VIAL.; -MAGN250T10 PO; -MELA10CA PO; -MELA3TAB2 PO; -MONT10TA6 PO; -NYST100054 PO; -OMEP20CA5 PO; -OMEP40CA5 PO; -ONDA4TAB7 PO; -POLY17PO3 PO; -POTA20TA12 PO; -PRED-220 PO; -PRED1TAB3 PO; -PROAIR HFA8.5 GM IH; +PROCHLORPERAZINE 10 MG/2 ML VIAL. IV; +PROPOFOL 20 ML IV; +PROPOFOL 40 ML IV; -SODI44SP NS; -TRIA15CR TP; -VENTOLIN HFA18 GM INH; +fentaNYL PF VIAL 100 MCG/2 ML VIAL IV
[2017-12-02] MEDS: IV RINGERS,LACTATED 1000ML 1,000 ML IV (10:01)
== END | disposition home or self-care (01) ==
LOC: ENDOS 09:22
DX: K63.5 Polyp of colon (principal); K57.30 Diverticulosis of large intestine without perforation or abscess without bleeding; Z86.010 Personal history of colon polyps; I11.0 Hypertensive heart disease with heart failure; I50.9 Heart failure, unspecified; K21.9 Gastro-esophageal reflux disease without esophagitis; E11.42 Type 2 diabetes mellitus with diabetic polyneuropathy; J45.40 Moderate persistent asthma, uncomplicated; M17.0 Bilateral primary osteoarthritis of knee; E11.49 Type 2 diabetes mellitus with other diabetic neurological complication; J44.1 Chronic obstructive pulmonary disease with (acute) exacerbation; F41.9 Anxiety disorder, unspecified; M81.0 Age-related osteoporosis without current pathological fracture; M79.7 Fibromyalgia; G25.81 Restless legs syndrome; F31.9 Bipolar disorder, unspecified; E66.9 Obesity, unspecified; E55.9 Vitamin D deficiency, unspecified; Z90.49 Acquired absence of other specified parts of digestive tract; Z96.642 Presence of left artificial hip joint; Z98.51 Tubal ligation status; Z98.890 Other specified postprocedural states; Z79.899 Other long term (current) drug therapy; Z88.0 Allergy status to penicillin; Z88.1 Allergy status to other antibiotic agents; Z88.5 Allergy status to narcotic agent; Z88.8 Allergy status to other drugs, medicaments and biological substances; Z98.49 Cataract extraction status, unspecified eye; Z96.1 Presence of intraocular lens; E78.00 Pure hypercholesterolemia, unspecified; Z79.84 Long term (current) use of oral hypoglycemic drugs; Z87.01 Personal history of pneumonia (recurrent)
CPT/HCPCS: 43235; 45380; 45385; 88305; J2001; J2704

== ENCOUNTER → 2018-02-19 | Outpatient (CLI) | payer MEDICARE ==
[2018-01-06 11:07] VITALS: BP 167/75
[~2018-02-19] MED LIST changes: +ACET-804 PO; +ACET325T9 PO; +ALBU2.5V5 NEB; +ALPR0.5T PO; +AMLO2.5T2 PO; +AZIT250T PO; +AZIT500T4 PO; +B12/1TAB3 PO; +BUDE0.5A IH; +CEFP200T PO; +CHOL10003 PO; +CLOB15CR TP; +CLOT15CR5 TP; +CYCL10TA2 PO; +DESO15OI3 TP; +DICL100G18 TP; +DILT120C80 PO; +DIPH25CA58 PO; +DOCU-109 PO; +DOCU50CA9 PO; +FAMO-63 PO; +FLUT16SP2 NS; +FURO-68 PO; +GUAI12003 PO; +HYDR-2762 PO; +HYDR-971 PO; +HYDR25TA PO; +IPRA0.2S5 NEB; +IPRA3AMP29 IH; +IPRA3AMP29 NEB; +KETO15CR2 TP; +LEVO500T59 PO; -LIDOCAINE 1% PF 2 ML VIAL. ID; -LIDOCAINE 2% PF Vial for OR 5 ML VIAL.; +MAGN250T10 PO; +MELA10CA PO; +MELA3TAB2 PO; +MONT10TA6 PO; +NYST100054 PO; +NYST15CR2 TP; +OMEP20CA5 PO; +OMEP40CA5 PO; +ONDA4TAB7 PO; +POLY17PO3 PO; +POTA20TA12 PO; +PRED-220 PO; +PRED1TAB3 PO; +PRED50TA PO; +PROAIR HFA8.5 GM IH; -PROCHLORPERAZINE 10 MG/2 ML VIAL. IV; -PROPOFOL 20 ML IV; -PROPOFOL 40 ML IV; +SODI44SP NS; +TRIA15CR TP; +VENTOLIN HFA18 GM INH; -fentaNYL PF VIAL 100 MCG/2 ML VIAL IV
--- NOTE | 2018-02-19 17:54 | KCIC ---
CT CHEST WO CONTRAST Indication: Interstitial lung disease. Cough. Exposure: One or more of the following individualized dose reduction techniques were utilized for this examination: 1. Automated exposure control 2. Adjustment of the mA and/or kV according to patient size 3. Use of iterative reconstruction technique. Comparison: None are available. Contrast: None FINDINGS: Vascular structures: Limited exam without contrast. No evidence of thoracic aortic aneurysm. Lymph nodes:No significant enlargement Thyroid gland:Visualized aspect is unremarkable. Heart: Coronary artery calcifications. Esophagus: Small hiatal hernia. Pleural spaces: No significant effusion Lungs: Improvement in the previously seen groundglass opacity in the right lobe with faint residual multiple bilateral linear markings are again identified, most likely scarring. Previously described 15 mm nodular opacity at the basilar left lower lobe is not identified on today's exam and may have been some focal atelectasis or consolidation. Small nodule is identified in the right lateral costophrenic angle, measuring 1 cm, series 2, image 47, not clearly seen on previous study. New subpleural density in the anterior right middle lobe, series 2, image 27, measuring about 18 mm width. This is continuous with some of the previously seen pleural thickening and scarring.. Trachea and central airways: Patent Spine: Chronic fractures and vertebroplasty cement at the upper thoracic spine again identified with a focal kyphosis at this level. Bones: No destructive process Upper abdomen: Slices obtained through the upper most abdomen are limited by the noncontrast technique. No obvious acute findings. Impression: 1. Development of a small 1 cm nodule in the right costophrenic angle, as well as some more irregular subpleural density at the anterior right middle lobe, could represent new focus of inflammatory or infectious process but the appearance is nonspecific, and recommend continued follow-up. 2. Improvement in previously seen right upper lobe groundglass opacity and in left lower lobe basilar opacity. 3. Scattered areas of pleural and parenchymal scarring. Electronically signed by: Pj Blair MD (02/19/2018 5:50 PM) [facility]
== END | disposition home or self-care (01) ==
LOC: KCIC CT 10:33
PROVIDERS: ATTEND Internal Medicine Critical Care Medicine
DX: M40.294 Other kyphosis, thoracic region (principal); I25.10 Atherosclerotic heart disease of native coronary artery without angina pectoris; I13.0 Hypertensive heart and chronic kidney disease with heart failure and stage 1 through stage 4 chronic kidney disease, or unspecified chronic kidney disease; E11.22 Type 2 diabetes mellitus with diabetic chronic kidney disease; I50.9 Heart failure, unspecified; N18.2 Chronic kidney disease, stage 2 (mild); D63.8 Anemia in other chronic diseases classified elsewhere; E78.00 Pure hypercholesterolemia, unspecified; K21.9 Gastro-esophageal reflux disease without esophagitis; J44.9 Chronic obstructive pulmonary disease, unspecified; E55.9 Vitamin D deficiency, unspecified; E66.9 Obesity, unspecified; R91.8 Other nonspecific abnormal finding of lung field; Z90.49 Acquired absence of other specified parts of digestive tract; Z68.35 Body mass index [BMI] 35.0-35.9, adult; Z87.891 Personal history of nicotine dependence; Z86.010 Personal history of colon polyps; Z96.643 Presence of artificial hip joint, bilateral; Z88.0 Allergy status to penicillin; Z88.1 Allergy status to other antibiotic agents; Z88.5 Allergy status to narcotic agent; Z88.6 Allergy status to analgesic agent; Z82.49 Family history of ischemic heart disease and other diseases of the circulatory system
CPT/HCPCS: 71250

== ENCOUNTER 2018-02-28 07:30 | Inpatient (IN) | payer MEDICARE ==
[~2018-02-28] VITALS: Ht 160 cm; Wt 96.4 kg
[2018-02-28] MEDS ORDERED: IPRATRPIUM/ALBUTEROL 0.5/2.5MG 3 ML NEBU. NEB ONE (07:45)
[2018-02-28] MEDS ORDERED: methylPREDNISolone SOD SUCC PF 125 MG/2 ML VIAL. IV ONE (07:45)
--- NOTE | 2018-02-28 07:59 | EKG ---
[facility] [address] [place] [address] Test Date: 2018-02-28 Test Time: 07:43:14 Pat Name: QUINN RICCI Department: Room: Gender: F Radio Producer: : 1950 Requested By: SARA PASTOR Order Number: [id number] Reading MD: Alfonso Quiñonez Measurements Intervals [place] Rate: 124 P: 62 [place]: 168 QRS: 49 QRSD: 84 T: 64 QT: 298 QTc: 431 Interpretive Statements SINUS TACHYCARDIA QRS(T) CONTOUR ABNORMALITY CANNOT RULE OUT ANTEROSEPTAL MYOCARDIAL DAMAGE BORDERLINE ECG Electronically Signed On 03-02-2018 11:14:36 CDT by Alfonso Quiñonez
--- NOTE | 2018-02-28 08:14 | RAD ---
Portable chest, 02/28/2018: HISTORY: Shortness of breath Comparison is made to a study from 01/01/2018. The heart size is normal. There are unchanged pleural/parenchymal opacities primarily in the upper chest compatible scarring. No acute infiltrate is seen. There is no evidence of pleural fluid. IMPRESSION: No acute cardiopulmonary abnormality is detected. Electronically signed by: Dayton Reynoso MD (02/28/2018 8:11 AM) [facility]
[2018-02-28 08:26] LABS: BASO # 0.2 x10^3/uL (0.0-0.2); BASO % 1 % (0-3); EOS # 0.7 x10^3/uL (0.0-0.7); EOS % 4 % (0-3); HEMATOCRIT 42.3 % (36.0-47.0); HEMOGLOBIN 13.8 g/dL (12.0-15.5); LYMPH # 2.7 x10^3/uL (1.0-4.8); LYMPH % 13 % (24-48); MEAN CORPUSCULAR HEMOGLOBIN 27 pg (25-35); MEAN CORPUSCULAR HGB CONC 33 g/dL (31-37); MEAN CORPUSCULAR VOLUME 84 fL (79-100); MONO # 1.1 x10^3/uL (0.0-1.1); MONO % 5 % (0-9); NEUT # 15.8 x10^3uL (1.8-7.7); NEUT % 77 % (31-73); PLATELET COUNT 423 x10^3/uL (140-400); RED BLOOD COUNT 5.04 x10^6/uL (3.50-5.40); RED CELL DISTRIBUTION WIDTH 16.6 % (11.5-14.5); WHITE BLOOD COUNT 20.5 x10^3/uL (4.0-11.0)
[2018-02-28 08:36] LABS: CALCIUM 9.7 mg/dL (8.5-10.1); GFR 55.6; POTASSIUM 3.5 mmol/L (3.5-5.1)
[2018-02-28 08:42] LABS: ALBUMIN 4.2 g/dL (3.4-5.0); ALBUMIN/GLOBULIN RATIO 1.1 (1.0-1.7); MAGNESIUM 1.9 mg/dL (1.8-2.4); TOTAL BILIRUBIN 0.4 mg/dL (0.2-1.0); TOTAL PROTEIN 8.1 g/dL (6.4-8.2)
[2018-02-28 08:45] LABS: % BANDS 13 % (0-9); % EOS 3 % (0-5); % LYMPHS 14 % (24-48); % MONOS 8 % (0-10); % SEGS 62 % (35-66)
[2018-02-28] MEDS ORDERED: IV NORMAL SALINE 1000ML BAG 1,000 ML IV ONE (08:45)
[2018-02-28 08:46] LABS: ANISOCYTOSIS SLIGHT; PLT ESTIMATE INCREASED (ADEQUATE); POLYCHROMASIA SLIGHT
--- NOTE | 2018-02-28 08:52 | PHYS DOC ---
Past Medical History Past Medical History: Anxiety, Arthritis, Asthma, Bronchitis, COPD, Depression , Diabetes-Type II, Fibromyalgia, GERD, Hypertension, Other Additional Past Medical Histor: mood disorder, neuropathy, chronic headache, DJD, chronic back pain, RLS Past Surgical History: Cholecystectomy, Hip Replacement, Tonsillectomy, Tubal ligation, Other Additional Past Surgical Histo: vertebroplasty, knee surgery, hip repair on R, L hip replaced Alcohol Use: None Drug Use: None Adult General Chief Complaint Chief Complaint: SHORTNESS OF BREATH HPI HPI Patient is a 67 year old female who brought in by EMS because of shortness of breath. Patient has history of COPD on 3 L of home oxygen and complaining of episodes of exertional shortness of breath since yesterday and moderate cough with yellow greenish sputum and generalized weakness. Patient denies chest pain , fever and chill, nausea and vomiting, urinary symptoms, abdominal pain. Patient states she took 2 nebulizer treatments at home and oral prednisone without improvement of her condition. EMS reported that she had 97% O2 sat at 3 L of oxygen and started on CPAP with improvement of her condition. Review of Systems Review of Systems Constitutional: Denies fever or chills [] Eyes: Denies change in visual acuity, redness, or eye pain [] HENT: Denies nasal congestion or sore throat [] Respiratory: Reports cough and shortness of breath Cardiovascular: No additional information not addressed in HPI [] GI: Denies abdominal pain, nausea, vomiting, bloody stools or diarrhea [] : Denies dysuria or hematuria [] Musculoskeletal: Denies back pain or joint pain [] Integument: Denies rash or skin lesions [] Neurologic: Denies headache, focal weakness or sensory changes [] Endocrine: Denies polyuria or polydipsia [] All other systems were reviewed and found to be within normal limits, except as documented in this note. Current Medications Current Medications Current Medications Medications (Trade) Dose Ordered Sig/Sylvester Start Time Stop Time Status Last Admin Dose Admin Albuterol/ Ipratropium (Duoneb) 3 ml 1X ONCE 02/28/18 07:45 02/28/18 07:47 DC 02/28/18 07:45 3 ML Methylprednisolone Sodium Succinate (SOLU-Medrol 125MG VIAL) 125 mg 1X ONCE 02/28/18 07:45 02/28/18 07:48 DC 02/28/18 07:59 125 MG Sodium Chloride 1,000 ml @ 1,000 mls/hr 1X ONCE 02/28/18 08:45 02/28/18 09:44 DC 02/28/18 08:56 1,000 MLS/HR Allergies Allergies Allergies Coded Allergies Type Severity Reaction Last Updated Verified Penicillins Allergy Intermediate rash 01/06/18 Yes amoxicillin Allergy Intermediate asthma 12/01/17 Yes carvedilol Allergy Intermediate asthma 12/01/17 Yes cinnamon Allergy Intermediate 12/01/17 Yes clavulanic acid Allergy Intermediate asthma 12/01/17 Yes codeine Allergy Intermediate hallucinations and itching 12/01/17 Yes lemon Allergy Intermediate 12/01/17 No lisinopril Allergy Intermediate 01/02/18 Yes morphine Allergy Intermediate Rash 12/01/17 No olanzapine Allergy Intermediate asthma 12/01/17 Yes perfume Allergy Intermediate 12/01/17 Yes ropinirole Allergy Intermediate asthma 12/01/17 Yes tree nut Allergy Intermediate 12/01/17 Yes bromide salts Allergy Mild 01/02/18 Yes doxycycline Adverse Reaction Intermediate nausea 12/01/17 Yes losartan Adverse Reaction Intermediate excessive sleepiness 12/01/17 Yes zolpidem Adverse Reaction Intermediate sleep walking and eating 12/01/17 Yes Uncoded Allergies Type Severity Reaction Last Updated Verified vanilla Allergy Intermediate 02/03/14 Physical Exam Physical Exam Constitutional: Well developed, well nourished, moderate distress, non-toxic appearance. [] HENT: Normocephalic, atraumatic, bilateral external ears normal, oropharynx moist, no oral exudates, nose normal. [] Eyes: PERRLA, EOMI, conjunctiva normal, no discharge. [] Neck: Normal range of motion, no tenderness, supple, no stridor. [] Cardiovascular: Tachycardia, no murmur [] Lungs & Thorax: Mild respiratory distress with intercostal retractions, audible wheezing Abdomen: Bowel sounds normal, soft, no tenderness, no masses, no pulsatile masses. [] Skin: Warm, dry, no erythema, no rash. [] Back: No tenderness, no CVA tenderness. [] Extremities: No tenderness, no cyanosis, no clubbing, ROM intact, no edema. [] Neurologic: Alert and oriented X 3, normal motor function, normal sensory function, no focal deficits noted. [] Psychologic: Affect normal, judgement normal, mood normal. [] Current Patient Data Vital Signs Vital Signs Date Time Temp Pulse Resp B/P (MAP) Pulse Ox O2 Delivery O2 Flow Rate FiO2 02/28/18 08:45 126 32 184/79 (114) 95 Nasal Cannula 3.0 02/28/18 07:30 97.5 97.5 Lab Values Laboratory Tests Test 02/28/18 08:10 White Blood Count 20.5 x10^3/uL (4.0-11.0) H Red Blood Count 5.04 x10^6/uL (3.50-5.40) Hemoglobin 13.8 g/dL (12.0-15.5) Hematocrit 42.3 % (36.0-47.0) Mean Corpuscular Volume 84 fL (79-100) Mean Corpuscular Hemoglobin 27 pg (25-35) Mean Corpuscular Hemoglobin Concent 33 g/dL (31-37) Red Cell Distribution Width 16.6 % (11.5-14.5) H Platelet Count 423 x10^3/uL (140-400) H Neutrophils (%) (Auto) 77 % (31-73) H Lymphocytes (%) (Auto) 13 % (24-48) L Monocytes (%) (Auto) 5 % (0-9) Eosinophils (%) (Auto) 4 % (0-3) H Basophils (%) (Auto) 1 % (0-3) Neutrophils # (Auto) 15.8 x10^3uL (1.8-7.7) H Lymphocytes # (Auto) 2.7 x10^3/uL (1.0-4.8) Monocytes # (Auto) 1.1 x10^3/uL (0.0-1.1) Eosinophils # (Auto) 0.7 x10^3/uL (0.0-0.7) Basophils # (Auto) 0.2 x10^3/uL (0.0-0.2) Segmented Neutrophils % 62 % (35-66) Band Neutrophils % 13 % (0-9) H Lymphocytes % 14 % (24-48) L Monocytes % 8 % (0-10) Eosinophils % 3 % (0-5) Platelet Estimate Increased (ADEQUATE) Polychromasia Slight Anisocytosis Slight Sodium Level 142 mmol/L (136-145) Potassium Level 3.5 mmol/L (3.5-5.1) Chloride Level 100 mmol/L (98-107) Carbon Dioxide Level 32 mmol/L (21-32) Anion Gap 10 (6-14) Blood Urea Nitrogen 18 mg/dL (7-20) Creatinine 1.0 mg/dL (0.6-1.0) Estimated GFR (Cockcroft-Gault) 55.6 BUN/Creatinine Ratio 18 (6-20) Glucose Level 119 mg/dL (70-99) H Lactic Acid Level 2.1 mmol/L (0.4-2.0) H Calcium Level 9.7 mg/dL (8.5-10.1) Magnesium Level 1.9 mg/dL (1.8-2.4) Total Bilirubin 0.4 mg/dL (0.2-1.0) Aspartate Amino Transferase (AST) 21 U/L (15-37) Alanine Aminotransferase (ALT) 42 U/L (14-59) Alkaline Phosphatase 87 U/L (46-116) Creatine Kinase 109 U/L (26-192) Troponin I Quantitative < 0.017 ng/mL (0.000-0.055) FI-Wza-K-Type Natriuretic Peptide 114 pg/mL (0-124) Total Protein 8.1 g/dL (6.4-8.2) Albumin 4.2 g/dL (3.4-5.0) Albumin/Globulin Ratio 1.1 (1.0-1.7) Laboratory Tests 02/28/18 08:10 Laboratory Tests 02/28/18 08:10 EKG EKG EKG interpreted by me. EKG at 0743 showed sinus tachycardia at rate of 125, poor R-wave progress in anteroseptal leads, no acute ST and T-wave abnormalities Radiology/Procedures Radiology/Procedures [facility] [address] [place], [place] [id number] IMAGING REPORT Signed PATIENT: QUINN RICCI ACCOUNT: [id number] : 1950 LOCATION: ER AGE: 67 SEX: F EXAM STATUS: PRE ER ORD. PHYSICIAN: SARA PASTOR MD REASON: shortness of breath PROCEDURE: PORTABLE CHEST 1V Portable chest, 02/28/2018: HISTORY: Shortness of breath Comparison is made to a study from 01/01/2018. The heart size is normal. There are unchanged pleural/parenchymal opacities primarily in the upper chest compatible scarring. No acute infiltrate is seen. There is no evidence of pleural fluid. IMPRESSION: No acute cardiopulmonary abnormality is detected. Electronically signed by: Dayton Reynoso MD (02/28/2018 8:11 AM) [facility] DICTATED and SIGNED BY: DAYTON REYNOSO MD DATE: 02/28/18 0810 Course & Med Decision Making Course & Med Decision Making Pertinent Labs and Imaging studies reviewed. (See chart for details) Evaluation of patient in ER showed 67-year-old female patient brought in by EMS because of respiratory distress and shortness of breath. Patient treated with DuoNeb and Solu-Medrol and her tachycardia and shortness of breath improves. Patient had white count of 20,000 and lactic acid of 2.1 and treated for sepsis. Dr. Kruse informed at 0845 and recommended to admit patient to Dr. Samuel and consult Dr. Zee or on-call cold type artist. Patient was evaluated by Dr. Delgado in ER. Dragon Disclaimer Dragon Disclaimer This electronic medical record was generated, in whole or in part, using a voice recognition dictation system. Departure Departure Impression: Primary Impression: Sepsis Additional Impressions: COPD with acute exacerbation Acute respiratory distress Disposition: ADMITTED INPATIENT (at 0 846) Admitting Physician: Terrie Kruse (informed at 0845 and recommended to admit to Dr. Samuel) Condition: GUARDED Referrals: YIMI SAMUEL MD (PCP) Critical Care Time Critical care time was 70 minutes exclusive of procedures. Problem Qualifiers SARA PASTOR MD Feb 28, 2018 08:52
[2018-02-28 09:54] LABS: BASE EXCESS ABG 4 mmol/L (-3-3); CORRECTED PCO2 ABG 47 mmHg; CORRECTED PH ABG 7.41; CORRECTED PO2 ABG 68 mmHg; HCO3 ABG 29 mmol/L (21-28); PCO2 ABG 47 mmHg (35-46); PO2 ABG 68 mmHg (65-108); SAT O2 ABG 94 % (92-99)
--- NOTE | 2018-02-28 10:04 | PDOC ---
Provider Note Provider Note [id number] acute on chronic resp fail ae of copd acute bronchitis abnl cxr see orders PRAKASH ROD MD Feb 28, 2018 10:04
[2018-02-28 10:34] VITALS: BP 180/87
[2018-02-28] MEDS ORDERED: NYST15PO9 TP (11:06)
--- NOTE | 2018-02-28 11:12 | CONS ---
DATE OF CONSULTATION: 02/28/2018 REASON FOR CONSULTATION: I was asked to see this 67-year-old lady for acute on chronic respiratory failure, acute exacerbation of COPD. HISTORY OF PRESENT ILLNESS: She does have a history of [id number] smoking, quit smoking in 2005. She has chronic respiratory failure. She is on oxygen at 3 liters per minute via nasal cannula and prednisone 10 mg daily. She did see Dr. Zee last week and was told to slowly taper her prednisone, which is 10 mg daily, she has not done that yet. She is on azithromycin daily, which Dr. Zee told her to stop. She has not felt well for the past 2 days, she has increased shortness of breath, cough with yellow sputum production and wheezing. She also does not know if she had a fever. She denied chest pain, but has a chest tightness. She denies gastroesophageal reflux symptoms. PAST MEDICAL HISTORY: COPD, chronic respiratory failure, diabetes mellitus and hypertension. PAST SURGICAL HISTORY: Cholecystectomy, hip replacement, vertebroplasty. ALLERGIES: PENICILLIN, AMOXICILLIN, BROMIDE, COREG, CINNAMON, CLAVULANIC ACID, CODEINE, DOXYCYCLINE, LEMON, LISINOPRIL, LOSARTAN, MORPHINE, OLANZAPINE, PERFUME, ROPINIROLE, VANILLA, TREE NUT AND ZOLPIDEM. MEDICATIONS: The patient was given bronchodilator and Solu-Medrol in Emergency Room. SOCIAL HISTORY: History of [id number]-cisy smoking, stopped smoking in 2005. FAMILY HISTORY: Hypertension. REVIEW OF SYSTEMS: As mentioned above. Other systems are otherwise negative. PHYSICAL EXAMINATION: GENERAL: This is an obese lady. VITAL SIGNS: Her O2 saturation on 3 liters of oxygen is 94%, respiratory rate 24, heart rate 120, blood pressure 173/73, temperature 97.5. HEENT: Normocephalic, atraumatic. Pupils equal, round, reactive to light. Shallow oropharynx. She is edentulous. Nose is clear. NECK: There is no JVD, lymphadenopathy or thyromegaly. CARDIOVASCULAR: Tachycardic. PMI is nondisplaced. CHEST: Inspection is normal. LUNGS: There is bilateral end expiratory wheezing, dullness at the bases. ABDOMEN: Soft and obese. Bowel sounds are good. There is no mass. EXTREMITIES: There is no edema. LYMPHATICS: There is no lymphadenopathy. NEUROLOGIC: Alert and oriented. SKIN: Warm. LABORATORY DATA: I reviewed following lab data. Chest x-ray does not show infiltrate. There is fullness in right suprahilar area and COPD changes. Sodium 142, potassium 3.5, chloride 100, CO2 32, glucose 119, BUN 18, creatinine 1. BNP 114. Troponin less than 0.01, lactic acid 2.1. WBC 20.5, hemoglobin 13.8, platelets 423. IMPRESSION: 1. Acute on chronic respiratory failure secondary to acute exacerbation of chronic obstructive pulmonary disease, acute bronchitis versus others. 2. Acute exacerbation of chronic obstructive pulmonary disease. 3. Acute bronchitis. 4. ?Sepsis. 5. Hypertension. 6. Diabetes mellitus. 7. Ex-smoker. 8. Obesity, snoring and excessive daytime sleepiness, probable obstructive sleep apnea-hypopnea syndrome. PLAN AND RECOMMENDATION: 1. Titrate FiO2 to keep O2 saturation 92%. 2. Start bronchodilator. 3. Inhaled corticosteroid. 4. Agree with Rocephin. 5. Lovenox for DVT prophylaxis. 6. Protonix for stress ulcer prophylaxis. 7. Monitor respiratory status very closely. 8. I have discussed obstructive sleep apnea-hypopnea syndrome, the importance of diagnosis and treatment, if untreated increase cardiovascular and AIRPLANE RENTAL CLERK morbidity or mortality. I do recommend a sleep study as an outpatient. 9. Continue not smoking. 10. The findings and recommendations were discussed with the patient and RN and RT. I have answered all of the patient's questions. She understood and agreed to proceed with the plan. 11. I will do a CT of the chest to have a better look at right suprahilar area. Thank you very much for allowing me to participate in care of this very nice lady. PRAKASH ROD M.D. [facility] JOB#: [id number] / [id number] she did have a ct of chest on 02/19/18, reviewed, 1. Development of a small 1 cm nodule in the right costophrenic angle, as well as some more irregular subpleural density at the anterior right middle lobe, could represent new focus of inflammatory or infectious process but the appearance is nonspecific, and recommend continued follow-up. 2. Improvement in previously seen right upper lobe groundglass opacity and in left lower lobe basilar opacity. 3. Scattered areas of pleural and parenchymal scarring. she will need fu ct in 2 months. MTDD
--- NOTE | 2018-02-28 11:41 | PDOC ---
Provider Note Provider Note PT SEEN.H&P DICTATED. #[id number] ARAVIND IRVING MD Feb 28, 2018 11:41
[2018-02-28] MEDS: IPRATRPIUM/ALBUTEROL 0.5/2.5MG 3 ML NEBU. NEB SCH ×3 (11:42→19:45)
[2018-02-28] MEDS ORDERED: CLOBETASOL PROPIONATE TP PRN (11:45)
[2018-02-28] MEDS ORDERED: TRIAMCINOLONE ACETONIDE TP PRN (11:45)
[2018-02-28] MEDS ORDERED: CLOTRIMAZOLE/BETAMETH 1%-0.05% TOPICAL CREAM 15GM TUBE. TP PRN (11:45)
[2018-02-28] MEDS: SODIUM CHLORIDE 0.65% NASAL SPRAY 45ML BOTTLE. NS SCH ×4 (11:57→23:46)
[2018-02-28] MEDS: IV NORMAL SALINE 1000ML BAG 1,000 ML IV SCH ×3 (11:57→22:46)
[2018-02-28] MEDS: DICLOFENAC SODIUM 1% TOPICAL GEL 100GM TUBE. TP SCH ×3 (11:58→20:39)
[2018-02-28] MEDS: ALPRAZolam 0.5 MG TABLET PO PRN ×2 (11:59→20:46)
[2018-02-28] MEDS: ENOXAPARIN 40 MG/0.4 ML SYRINGE. SQ SCH (11:59)
[2018-02-28] MEDS ORDERED: NON FORMULARY ITEM (Albuterol Sulfate (Ventolin Hfa Inhaler) 2 PUFF) INH SCH (12:00)
--- NOTE | 2018-02-28 12:18 | HP ---
ADMIT DATE: 02/28/2018 LOCATION: 248. ATTENDING PHYSICIAN: Dr. Yimi Samuel. REASON FOR ADMISSION TO THE HOSPITAL: 1. COPD with acute exacerbation. 2. Leukocytosis. 3. Lactic acidosis. HISTORY OF PRESENT ILLNESS: The patient is a 67-year-old female, a patient of Dr. Yimi Samuel, has multiple admissions to [facility], last admission within a month ago. She was having shortness of breath. She has seen Dr. Zee 3 days ago and he recommended to cut down the prednisone to 10 mg and also discontinued Zithromax. The patient woke up this morning, she was short of breath, could hardly breathe, came to the Emergency Room and she took prednisone 20 mg. Her white count was 20,000. Lactic acid was 2.1. Chest x-ray was negative. Very tight in the chest, was admitted to the hospital, was given IV Rocephin and IV Solu-Medrol. PAST MEDICAL HISTORY: COPD chronic, diabetes, hypertension, anxiety, depression. PAST SURGICAL HISTORY: Gallbladder surgery, hip replacement, vertebroplasty. ALLERGIES: PENICILLIN, AMOXIL, COREG, CINNAMON, CLAVULANIC ACID, CODEINE, DOXYCYCLINE, LISINOPRIL, LOSARTAN, MORPHINE, OLANZAPINE, LIDOPRIL, ROPINIROLE, VANILLA, TREE NUT, AMBIEN, PERFUMES. MEDICATIONS: At home, the patient is on prednisone 10 mg daily. She has a nebulizer machine 4 times daily, budesonide 0.5 twice a day nebulizer, cyclobenzaprine 10 mg 3 times daily, diclofenac, Colace, fluticasone nose spray, Lasix 40 mg daily, Mucinex daily, Singulair 10 mg daily, nystatin daily, omeprazole 40 mg daily, potassium 20 mEq daily, nasal spray, cream. SOCIAL HISTORY: The patient has a 40-pack year of smoking, quit a couple of years ago, on home oxygen, ambulates at home. REVIEW OF SYSTEMS: CARDIAC: No chest pain. GASTROINTESTINAL: No nausea, vomiting. RESPIRATORY: Only shortness of breath, clear and no fever, no yellow sputum. Rest of the 14-system reviewed. FAMILY HISTORY: Positive for COPD and hypertension. PHYSICAL EXAMINATION: VITAL SIGNS: At the time of admission shows temperature 97, pulse 129, respirations 38, blood pressure 186/111, 98% on 3 liters. HEENT: Head is atraumatic. Pupils equal. Oral cavity, slight congestion posterior pharynx. NECK: Supple. Thyroid not enlarged. JVD not elevated. CHEST: Symmetrical. CARDIOVASCULAR: S1, S2. LUNGS: Bilateral wheezing anterior and posterior chest. ABDOMEN: Soft, bowel sounds present, no mass palpable. EXTERNAL GENITALIA: Normal. No [place]. RECTAL: Deferred. EXTREMITIES: No calf tenderness. NEUROLOGIC: Cranial nerves intact. Power 5/5 in all extremities. LABORATORY DATA: White count 20,000, hemoglobin 14, platelets 423. Electrolytes show sodium 142, potassium 3.5, chloride 100, bicarbonate 32, BUN 18, creatinine 1.0, glucose 119. Lactic acid 2.1. LFTs were normal. Blood gas shows pH of 7.41, pCO2 of 47, pO2 of 68, bicarbonate 29 on FiO2 of 32. Chest x-ray negative for infiltrates. EKG, sinus tachycardia. FINAL IMPRESSION: 1. Acute chronic obstructive pulmonary disease with exacerbation. 2. Possible sepsis with leukocytosis and lactic acid present. 3. Steroid dependent chronic obstructive pulmonary disease. 4. Chronic obstructive pulmonary disease with hypoxia. 5. Tachycardia. 6. Anxiety, depression, hypertension. PLAN: At this time, admit to hospital, hydrate with IV fluids, IV Solu-Medrol 125 given and 40 mg q.6 hours, IV Rocephin and influenza A and B was being collected, sputum and blood cultures and see how the patient's condition improves. DVT prophylaxis and GI prophylaxis. ARAVIND IRVING MD DR: YANI/monica JOB#: [id number] / [id number] YIMI Hardwick MD
[2018-02-28] MEDS: ACETAMINOPHEN 325 MG TABLET. PO PRN ×2 (12:47→23:45)
[2018-02-28] MEDS ORDERED: IPRATRPIUM/ALBUTEROL 0.5/2.5MG 3 ML NEBU. NEB SCH (13:00)
[2018-02-28 15:00] VITALS: BP 132/77
[2018-02-28] MEDS: methylPREDNISolone SOD SUCC PF 40 MG/ML VIAL. IV SCH ×2 (15:41→20:48)
[2018-02-28 17:55] LABS: INFLUENZA A PATIENT NEGATIVE (NEGATIVE); INFLUENZA B PATIENT NEGATIVE (NEGATIVE)
[2018-02-28] MEDS: BUDESONIDE 0.5 MG/2 ML NEBU. NEB SCH (19:46)
[2018-02-28 19:50] VITALS: BP 152/79
[2018-02-28] MEDS: NYSTATIN TOPICAL POWDER 15GM BOTTLE. TP SCH (20:40)
[2018-02-28] MEDS: TRIAMCINOLONE ACETONIDE 0.1% TOPICAL CREAM 15GM TUBE. TP SCH (20:41)
[2018-02-28] MEDS ORDERED: BUDESONIDE 0.5 MG/2 ML NEBU. NEB SCH (21:00)
[2018-02-28] MEDS: LACTOBACILLUS RHAMNOSUS GG 1 CAPSULE. PO SCH (22:45)
[2018-02-28 23:27] VITALS: BP 162/77
[2018-03-01 03:45] VITALS: BP 143/69
[2018-03-01] MEDS: SODIUM CHLORIDE 0.65% NASAL SPRAY 45ML BOTTLE. NS SCH ×5 (04:00→21:54)
[2018-03-01 04:55] LABS: BASO % 0 % (0-3); EOS % 0 % (0-3); HEMATOCRIT 35.2 % (36.0-47.0); HEMOGLOBIN 11.4 g/dL (12.0-15.5); LYMPH # 0.8 x10^3/uL (1.0-4.8); LYMPH % 3 % (24-48); MEAN CORPUSCULAR HEMOGLOBIN 27 pg (25-35); MEAN CORPUSCULAR HGB CONC 33 g/dL (31-37); MEAN CORPUSCULAR VOLUME 84 fL (79-100); MONO # 0.6 x10^3/uL (0.0-1.1); MONO % 2 % (0-9); NEUT # 26.5 x10^3uL (1.8-7.7); NEUT % 95 % (31-73); PLATELET COUNT 325 x10^3/uL (140-400); RED BLOOD COUNT 4.18 x10^6/uL (3.50-5.40); RED CELL DISTRIBUTION WIDTH 16.8 % (11.5-14.5)
[2018-03-01] MEDS: IV NORMAL SALINE 1000ML BAG 1,000 ML IV SCH (05:02)
[2018-03-01 05:11] LABS: CALCIUM 8.5 mg/dL (8.5-10.1); CREATININE 0.8 mg/dL (0.6-1.0); POTASSIUM 4.1 mmol/L (3.5-5.1)
[2018-03-01] MEDS: ALBUTEROL SULFATE 2.5 MG/3 ML NEBU. NEB PRN (05:11)
[2018-03-01] MEDS: methylPREDNISolone SOD SUCC PF 40 MG/ML VIAL. IV SCH ×3 (05:44→21:56)
--- NOTE | 2018-03-01 06:48 | PDOC ---
PULMONARY PROGRESS NOTES Subjective on 02, has sob, slightly better, has cough sputum, no pain Vitals Vital Signs Date Time Temp Pulse Resp B/P (MAP) Pulse Ox O2 Delivery O2 Flow Rate FiO2 03/01/18 05:14 96 Nasal Cannula 3.0 03/01/18 03:45 97.6 84 24 143/69 (93) 97.6 ROS: No Nausea, No Chest Pain General: Alert, Oriented X4 HEENT: Other (nc at perrl nose clear, shallow oropharynx) Lungs: Wheezing Cardiovascular: S1, S2 Abdomen: Soft, Non-tender Neuro Exam: Alert Extremities: No Edema Skin: Warm Labs Laboratory Tests Test 02/28/18 08:10 02/28/18 09:05 02/28/18 10:50 02/28/18 16:45 White Blood Count 20.5 x10^3/uL (4.0-11.0) Red Blood Count 5.04 x10^6/uL (3.50-5.40) Hemoglobin 13.8 g/dL (12.0-15.5) Hematocrit 42.3 % (36.0-47.0) Mean Corpuscular Volume 84 fL (79-100) Mean Corpuscular Hemoglobin 27 pg (25-35) Mean Corpuscular Hemoglobin Concent 33 g/dL (31-37) Red Cell Distribution Width 16.6 % (11.5-14.5) Platelet Count 423 x10^3/uL (140-400) Neutrophils (%) (Auto) 77 % (31-73) Lymphocytes (%) (Auto) 13 % (24-48) Monocytes (%) (Auto) 5 % (0-9) Eosinophils (%) (Auto) 4 % (0-3) Basophils (%) (Auto) 1 % (0-3) Neutrophils # (Auto) 15.8 x10^3uL (1.8-7.7) Lymphocytes # (Auto) 2.7 x10^3/uL (1.0-4.8) Monocytes # (Auto) 1.1 x10^3/uL (0.0-1.1) Eosinophils # (Auto) 0.7 x10^3/uL (0.0-0.7) Basophils # (Auto) 0.2 x10^3/uL (0.0-0.2) Segmented Neutrophils % 62 % (35-66) Band Neutrophils % 13 % (0-9) Lymphocytes % 14 % (24-48) Monocytes % 8 % (0-10) Eosinophils % 3 % (0-5) Platelet Estimate Increased (ADEQUATE) Polychromasia Slight Anisocytosis Slight Sodium Level 142 mmol/L (136-145) Potassium Level 3.5 mmol/L (3.5-5.1) Chloride Level 100 mmol/L (98-107) Carbon Dioxide Level 32 mmol/L (21-32) Anion Gap 10 (6-14) Blood Urea Nitrogen 18 mg/dL (7-20) Creatinine 1.0 mg/dL (0.6-1.0) Estimated GFR (Cockcroft-Gault) 55.6 BUN/Creatinine Ratio 18 (6-20) Glucose Level 119 mg/dL (70-99) Lactic Acid Level 2.1 mmol/L (0.4-2.0) 2.3 mmol/L (0.4-2.0) Calcium Level 9.7 mg/dL (8.5-10.1) Magnesium Level 1.9 mg/dL (1.8-2.4) Total Bilirubin 0.4 mg/dL (0.2-1.0) Aspartate Amino Transf (AST/SGOT) 21 U/L (15-37) Alanine Aminotransferase (ALT/SGPT) 42 U/L (14-59) Alkaline Phosphatase 87 U/L (46-116) Creatine Kinase 109 U/L (26-192) Troponin I Quantitative < 0.017 ng/mL (0.000-0.055) PT-Dfw-D-Type Natriuretic Peptide 114 pg/mL (0-124) Total Protein 8.1 g/dL (6.4-8.2) Albumin 4.2 g/dL (3.4-5.0) Albumin/Globulin Ratio 1.1 (1.0-1.7) O2 Saturation 94 % (92-99) Arterial Blood pH 7.41 (7.35-7.45) Arterial Blood pH (Temp corrected) 7.41 Arterial Blood pCO2 at Patient Temp 47 mmHg (35-46) Arterial Blood pCO2 (Temp correct) 47 mmHg Arterial Blood pO2 at Patient Temp 68 mmHg (65-108) Arterial Blood pO2 (Temp corrected) 68 mmHg Arterial Blood HCO3 29 mmol/L (21-28) Arterial Blood Base Excess 4 mmol/L (-3-3) FiO2 32.0 Influenza Type A Antigen Negative (NEGATIVE) Influenza Type B Antigen Negative (NEGATIVE) Test 02/28/18 20:30 03/01/18 04:00 Lactic Acid Level 3.3 mmol/L (0.4-2.0) 1.3 mmol/L (0.4-2.0) White Blood Count 28.0 x10^3/uL (4.0-11.0) Red Blood Count 4.18 x10^6/uL (3.50-5.40) Hemoglobin 11.4 g/dL (12.0-15.5) Hematocrit 35.2 % (36.0-47.0) Mean Corpuscular Volume 84 fL (79-100) Mean Corpuscular Hemoglobin 27 pg (25-35) Mean Corpuscular Hemoglobin Concent 33 g/dL (31-37) Red Cell Distribution Width 16.8 % (11.5-14.5) Platelet Count 325 x10^3/uL (140-400) Neutrophils (%) (Auto) 95 % (31-73) Lymphocytes (%) (Auto) 3 % (24-48) Monocytes (%) (Auto) 2 % (0-9) Eosinophils (%) (Auto) 0 % (0-3) Basophils (%) (Auto) 0 % (0-3) Neutrophils # (Auto) 26.5 x10^3uL (1.8-7.7) Lymphocytes # (Auto) 0.8 x10^3/uL (1.0-4.8) Monocytes # (Auto) 0.6 x10^3/uL (0.0-1.1) Eosinophils # (Auto) 0.0 x10^3/uL (0.0-0.7) Basophils # (Auto) 0.0 x10^3/uL (0.0-0.2) Sodium Level 143 mmol/L (136-145) Potassium Level 4.1 mmol/L (3.5-5.1) Chloride Level 107 mmol/L (98-107) Carbon Dioxide Level 30 mmol/L (21-32) Anion Gap 6 (6-14) Blood Urea Nitrogen 17 mg/dL (7-20) Creatinine 0.8 mg/dL (0.6-1.0) Estimated GFR (Cockcroft-Gault) 72.0 Glucose Level 124 mg/dL (70-99) Calcium Level 8.5 mg/dL (8.5-10.1) Laboratory Tests Test 02/28/18 08:10 02/28/18 09:05 02/28/18 10:50 02/28/18 16:45 White Blood Count 20.5 x10^3/uL (4.0-11.0) Red Blood Count 5.04 x10^6/uL (3.50-5.40) Hemoglobin 13.8 g/dL (12.0-15.5) Hematocrit 42.3 % (36.0-47.0) Mean Corpuscular Volume 84 fL (79-100) Mean Corpuscular Hemoglobin 27 pg (25-35) Mean Corpuscular Hemoglobin Concent 33 g/dL (31-37) Red Cell Distribution Width 16.6 % (11.5-14.5) Platelet Count 423 x10^3/uL (140-400) Neutrophils (%) (Auto) 77 % (31-73) Lymphocytes (%) (Auto) 13 % (24-48) Monocytes (%) (Auto) 5 % (0-9) Eosinophils (%) (Auto) 4 % (0-3) Basophils (%) (Auto) 1 % (0-3) Neutrophils # (Auto) 15.8 x10^3uL (1.8-7.7) Lymphocytes # (Auto) 2.7 x10^3/uL (1.0-4.8) Monocytes # (Auto) 1.1 x10^3/uL (0.0-1.1) Eosinophils # (Auto) 0.7 x10^3/uL (0.0-0.7) Basophils # (Auto) 0.2 x10^3/uL (0.0-0.2) Segmented Neutrophils % 62 % (35-66) Band Neutrophils % 13 % (0-9) Lymphocytes % 14 % (24-48) Monocytes % 8 % (0-10) Eosinophils % 3 % (0-5) Platelet Estimate Increased (ADEQUATE) Polychromasia Slight Anisocytosis Slight Sodium Level 142 mmol/L (136-145) Potassium Level 3.5 mmol/L (3.5-5.1) Chloride Level 100 mmol/L (98-107) Carbon Dioxide Level 32 mmol/L (21-32) Anion Gap 10 (6-14) Blood Urea Nitrogen 18 mg/dL (7-20) Creatinine 1.0 mg/dL (0.6-1.0) Estimated GFR (Cockcroft-Gault) 55.6 BUN/Creatinine Ratio 18 (6-20) Glucose Level 119 mg/dL (70-99) Lactic Acid Level 2.1 mmol/L (0.4-2.0) 2.3 mmol/L (0.4-2.0) Calcium Level 9.7 mg/dL (8.5-10.1) Magnesium Level 1.9 mg/dL (1.8-2.4) Total Bilirubin 0.4 mg/dL (0.2-1.0) Aspartate Amino Transf (AST/SGOT) 21 U/L (15-37) Alanine Aminotransferase (ALT/SGPT) 42 U/L (14-59) Alkaline Phosphatase 87 U/L (46-116) Creatine Kinase 109 U/L (26-192) Troponin I Quantitative < 0.017 ng/mL (0.000-0.055) MF-Imf-I-Type Natriuretic Peptide 114 pg/mL (0-124) Total Protein 8.1 g/dL (6.4-8.2) Albumin 4.2 g/dL (3.4-5.0) Albumin/Globulin Ratio 1.1 (1.0-1.7) O2 Saturation 94 % (92-99) Arterial Blood pH 7.41 (7.35-7.45) Arterial Blood pH (Temp corrected) 7.41 Arterial Blood pCO2 at Patient Temp 47 mmHg (35-46) Arterial Blood pCO2 (Temp correct) 47 mmHg Arterial Blood pO2 at Patient Temp 68 mmHg (65-108) Arterial Blood pO2 (Temp corrected) 68 mmHg Arterial Blood HCO3 29 mmol/L (21-28) Arterial Blood Base Excess 4 mmol/L (-3-3) FiO2 32.0 Influenza Type A Antigen Negative (NEGATIVE) Influenza Type B Antigen Negative (NEGATIVE) Test 02/28/18 20:30 03/01/18 04:00 Lactic Acid Level 3.3 mmol/L (0.4-2.0) 1.3 mmol/L (0.4-2.0) White Blood Count 28.0 x10^3/uL (4.0-11.0) Red Blood Count 4.18 x10^6/uL (3.50-5.40) Hemoglobin 11.4 g/dL (12.0-15.5) Hematocrit 35.2 % (36.0-47.0) Mean Corpuscular Volume 84 fL (79-100) Mean Corpuscular Hemoglobin 27 pg (25-35) Mean Corpuscular Hemoglobin Concent 33 g/dL (31-37) Red Cell Distribution Width 16.8 % (11.5-14.5) Platelet Count 325 x10^3/uL (140-400) Neutrophils (%) (Auto) 95 % (31-73) Lymphocytes (%) (Auto) 3 % (24-48) Monocytes (%) (Auto) 2 % (0-9) Eosinophils (%) (Auto) 0 % (0-3) Basophils (%) (Auto) 0 % (0-3) Neutrophils # (Auto) 26.5 x10^3uL (1.8-7.7) Lymphocytes # (Auto) 0.8 x10^3/uL (1.0-4.8) Monocytes # (Auto) 0.6 x10^3/uL (0.0-1.1) Eosinophils # (Auto) 0.0 x10^3/uL (0.0-0.7) Basophils # (Auto) 0.0 x10^3/uL (0.0-0.2) Sodium Level 143 mmol/L (136-145) Potassium Level 4.1 mmol/L (3.5-5.1) Chloride Level 107 mmol/L (98-107) Carbon Dioxide Level 30 mmol/L (21-32) Anion Gap 6 (6-14) Blood Urea Nitrogen 17 mg/dL (7-20) Creatinine 0.8 mg/dL (0.6-1.0) Estimated GFR (Cockcroft-Gault) 72.0 Glucose Level 124 mg/dL (70-99) Calcium Level 8.5 mg/dL (8.5-10.1) Medications Active Scripts Medications Dose Route/Sig Max Daily Dose Days Date Category Nystatin 15 Gm Powder 1 Latanya TP BID 02/28/18 Reported Budesonide 0.5 Mg/2 Ml Ampul.neb 0.5 Mg IH BID 04/24/17 Reported Nystatin-Triamcinolone Cream (Nystatin/Triamcin) 15 Gm Cream..g. 15 Gm TP BID 04/23/17 Reported Duoneb 0.5-3(2.5) Mg/3 Ml (Albuterol/Ipratropium) 3 Ml Ampul.neb 3 Ml NEB QID 03/14/17 Reported Ventolin Hfa Inhaler (Albuterol Sulfate) 18 Gm Hfa.aer.ad 2 Puff INH Q4HRS 03/13/17 Reported Mucinex (Guaifenesin) 1,200 Mg Tbmp.12hr 1,200 Mg PO PRN BID PRN 03/13/17 Reported Melatonin 3 Mg Tablet 10 Mg PO 03/13/17 Reported Xanax (Alprazolam) 0.5 Mg Tablet 0.5 Mg PO PRN Q6HRS PRN 01/24/15 Rx Omeprazole 40 Mg Capsule.dr 40 Mg PO DAILY 01/24/15 Rx Voltaren (Diclofenac Sodium) 100 Gm Gel..gram. 1 Gm TP QID 02/02/14 Reported Singulair Tablet (Montelukast Sodium) 10 Mg Tablet 1 Tab PO DAILY 02/02/14 Reported Deep Sea (Sodium Chloride) 44 Ml Lemont 2 Lemont NS Q4HRS 02/02/14 Reported Colace (Docusate Sodium) 100 Mg Capsule 1 Cap PO BID PRN 02/02/14 Reported Flonase (Fluticasone Propionate) 16 Gm Lemont.susp 2 Lem[place] NS DAILY 02/02/14 Reported Clotrimazole-Betamethasone Crm (Clotrimazole/Betamethasone Dip) 15 Gm Cream..g. 1 Latanya TP PRN PRN 02/02/14 Reported Triamcinolone Acetonide 0.5% Cream (Triamcinolone Acetonide) 15 Gm Cream..g. 1 Latanya TP PRN PRN 02/02/14 Reported Clobetasol Propionate 15 Gm Cream..g. 1 Latanya TP PRN PRN 02/02/14 Reported Cyclobenzaprine Hcl 10 Mg Tablet 1 Tab PO TID PRN 02/02/14 Reported Lasix (Furosemide) 40 Mg Tablet 1 Tab PO DAILY 02/02/14 Reported Potassium Chloride 20 Meq Tab.er.prt 20 Meq PO DAILY 02/02/[address] of chest on 02/19/18, reviewed, 1. Development of a small 1 cm nodule in the right costophrenic angle, as well as some more irregular subpleural density at the anterior right middle lobe, could represent new focus of inflammatory or infectious process but the appearance is nonspecific, and recommend continued follow-up. 2. Improvement in previously seen right upper lobe groundglass opacity and in left lower lobe basilar opacity. 3. Scattered areas of pleural and parenchymal scarring. Impression . IMPRESSION: 1. Acute on chronic respiratory failure secondary to acute exacerbation of chronic obstructive pulmonary disease, acute bronchitis versus others. 2. Acute exacerbation of chronic obstructive pulmonary disease. 3. Acute bronchitis. 4. ?Sepsis. 5. Hypertension. 6. Diabetes mellitus. 7. Ex-smoker. 8. Obesity, snoring and excessive daytime sleepiness, probable obstructive sleep apnea-hypopnea syndrome. 9. abnl ct of chest Plan . PLAN AND RECOMMENDATION: 1. Titrate FiO2 to keep O2 saturation 92%. 2. bronchodilator. 3. Inhaled corticosteroid. 4. cont Rocephin. 5. Lovenox for DVT prophylaxis. 6. Protonix for stress ulcer prophylaxis. 7. Monitor respiratory status very closely. 8. I have discussed obstructive sleep apnea-hypopnea syndrome, the importance of diagnosis and treatment, if untreated increase cardiovascular and [employer]END[employer] morbidity or mortality. I do recommend a sleep study as an outpatient. 9. Continue not smoking. 10. cont solumedrol, no dose change 11. repeat CT of the chest in 2 mo The findings and recommendations were discussed with the patient and PRAKASH RICHTER MD Mar 01, 2018 06:47
[2018-03-01 07:06] VITALS: BP 167/67
[2018-03-01] MEDS: BUDESONIDE 0.5 MG/2 ML NEBU. NEB SCH ×2 (08:11→19:12)
[2018-03-01] MEDS: IPRATRPIUM/ALBUTEROL 0.5/2.5MG 3 ML NEBU. NEB SCH ×4 (08:11→19:12)
[2018-03-01] MEDS: cefTRIAXone IV Push 1 GM VIAL. IVP SCH (08:48)
[2018-03-01] MEDS: MONTELUKAST SODIUM 10 MG TABLET. PO SCH (08:49)
[2018-03-01] MEDS: PANTOPRAZOLE 40 MG TABLET.DR. PO SCH (08:49)
[2018-03-01] MEDS: ACETAMINOPHEN 325 MG TABLET. PO PRN (08:49)
[2018-03-01] MEDS: DICLOFENAC SODIUM 1% TOPICAL GEL 100GM TUBE. TP SCH ×4 (08:49→21:00)
[2018-03-01] MEDS: LACTOBACILLUS RHAMNOSUS GG 1 CAPSULE. PO SCH ×2 (08:49→21:54)
[2018-03-01] MEDS: POTASSIUM CHLORIDE 20 MEQ TABLET.ER. PO SCH (08:50)
[2018-03-01] MEDS: FUROSEMIDE 40 MG TABLET. PO SCH (08:50)
[2018-03-01] MEDS: FLUTICASONE 50MCG/NASAL SPRAY 16GM BOTTLE. NS SCH (08:50)
[2018-03-01] MEDS: TRIAMCINOLONE ACETONIDE 0.1% TOPICAL CREAM 15GM TUBE. TP SCH ×2 (08:50→21:00)
[2018-03-01] MEDS: NYSTATIN TOPICAL POWDER 15GM BOTTLE. TP SCH ×2 (08:51→21:54)
[2018-03-01] MEDS ORDERED: NON FORMULARY ITEM (Omeprazole 40 MG) PO SCH (09:00)
[2018-03-01] MEDS ORDERED: IPRATRPIUM/ALBUTEROL 0.5/2.5MG 3 ML NEBU. NEB PRN (10:45)
--- NOTE | 2018-03-01 10:46 | PDOC ---
PROGRESS NOTES Subjective Subjective feels better today Objective Objective Vital Signs Date Time Temp Pulse Resp B/P (MAP) Pulse Ox O2 Delivery O2 Flow Rate FiO2 03/01/18 08:15 97 Nasal Cannula 3.0 03/01/18 07:06 98.1 87 22 167/67 (100) 98.1 Intake and Output 03/01/18 07:00 Intake Total 3020 ml Balance 3020 ml Intake Oral 700 ml IV Total 1570 ml Blood Product IV Normal Saline Flush 750 ml # Voids 2 Physical Exam Abdomen: Normal bowel sounds, Soft Heart: Regular rate, Normal S1, Normal S2 Extremities: No cyanosis General: Alert, Oriented X3 HEENT: Atraumatic Lungs: Other (wheezing ) MUSCULOSKELETAL: No swelling, Osteoarthritic changes both hands Neuro: Normal speech Psych/Mental Status: Mental status NL Skin: No breakdown Diagnosis Problem List Problems Medical Problems: (1) Acute respiratory distress Status: Acute (2) COPD with acute exacerbation Status: Acute Assessment Assessment Problems Medical Problems: (1) Acute respiratory distress Status: Acute (2) COPD with acute exacerbation Status: Acute FINAL IMPRESSION: 1. Acute chronic obstructive pulmonary disease with exacerbation. 2. Possible sepsis with leukocytosis and lactic acid present. 3. Steroid dependent chronic obstructive pulmonary disease. 4. Chronic obstructive pulmonary disease with hypoxia. 5. Tachycardia. 6. Anxiety, depression, hypertension. PLAN: hr 100 down with fluids wbc 28 high due to steroids. cxr -ve clinically improving. iv rocephin+solumedrol. duoneb qid+prn dvt prevention. At this time, admit to hospital, hydrate with IV fluids, IV Solu-Medrol 125 given and 40 mg q.6 hours, IV Rocephin and influenza A and B was being collected, sputum and blood cultures and see how the patient's condition improves. DVT prophylaxis and GI prophylaxis. Plan Plan of Care Problems Medical Problems: (1) Acute respiratory distress Status: Acute (2) COPD with acute exacerbation Status: Acute Comment Review of Relevant I have reviewed the following items jabier (where applicable) has been applied. Labs Laboratory Tests Test 02/28/18 10:50 02/28/18 16:45 02/28/18 20:30 03/01/18 04:00 Lactic Acid Level 2.3 mmol/L (0.4-2.0) 3.3 mmol/L (0.4-2.0) 1.3 mmol/L (0.4-2.0) Influenza Type A Antigen Negative (NEGATIVE) Influenza Type B Antigen Negative (NEGATIVE) White Blood Count 28.0 x10^3/uL (4.0-11.0) Red Blood Count 4.18 x10^6/uL (3.50-5.40) Hemoglobin 11.4 g/dL (12.0-15.5) Hematocrit 35.2 % (36.0-47.0) Mean Corpuscular Volume 84 fL (79-100) Mean Corpuscular Hemoglobin 27 pg (25-35) Mean Corpuscular Hemoglobin Concent 33 g/dL (31-37) Red Cell Distribution Width 16.8 % (11.5-14.5) Platelet Count 325 x10^3/uL (140-400) Neutrophils (%) (Auto) 95 % (31-73) Lymphocytes (%) (Auto) 3 % (24-48) Monocytes (%) (Auto) 2 % (0-9) Eosinophils (%) (Auto) 0 % (0-3) Basophils (%) (Auto) 0 % (0-3) Neutrophils # (Auto) 26.5 x10^3uL (1.8-7.7) Lymphocytes # (Auto) 0.8 x10^3/uL (1.0-4.8) Monocytes # (Auto) 0.6 x10^3/uL (0.0-1.1) Eosinophils # (Auto) 0.0 x10^3/uL (0.0-0.7) Basophils # (Auto) 0.0 x10^3/uL (0.0-0.2) Sodium Level 143 mmol/L (136-145) Potassium Level 4.1 mmol/L (3.5-5.1) Chloride Level 107 mmol/L (98-107) Carbon Dioxide Level 30 mmol/L (21-32) Anion Gap 6 (6-14) Blood Urea Nitrogen 17 mg/dL (7-20) Creatinine 0.8 mg/dL (0.6-1.0) Estimated GFR (Cockcroft-Gault) 72.0 Glucose Level 124 mg/dL (70-99) Calcium Level 8.5 mg/dL (8.5-10.1) Medications Current Medications Acetaminophen (Tylenol) 650 mg PRN Q8HRS PRN PO HEADACHE Last administered on at 08:49; Start 02/28/18 at 12:15 Albuterol Sulfate (Ventolin Neb Soln) 2.5 mg PRN Q4HRS PRN NEB SHORTNESS OF BREATH Last administered on 03/01/18at 05:11; Start 03/01/18 at 01:00 Albuterol/ Ipratropium (Duoneb) 3 ml QID NEB ; Start 02/28/18 at 13:00; Status UNV Albuterol/ Ipratropium (Duoneb) 3 ml RTQID NEB Last administered on 03/01/18at 08:11; Start 02/28/18 at 12:00 Alprazolam (Xanax) 0.5 mg PRN Q6HRS PRN PO ANXIETY / AGITATION Last administered on 02/28/18at 20:46; Start 02/28/18 at 11:45 Betamethasone/ Clotrimazole (Lotrisone) 1 raimundo BID PRN TP DRY SKIN / SCALING; Start 02/28/18 at 11:45 Budesonide (Pulmicort) 0.5 mg BID NEB ; Start 02/28/18 at 21:00; Status UNV Budesonide (Pulmicort) 0.5 mg RTBID NEB Last administered on 03/01/18at 08:11; Start 02/28/18 at 20:00 Ceftriaxone Sodium 1 gm/ Dextrose 50 ml @ 100 mls/hr Q24H IV ; Start 03/01/18 at 09:00; Status UNV Ceftriaxone Sodium (Rocephin) 1 gm Q24H IVP Last administered on 03/01/18at 08: 48; Start 03/01/18 at 09:00 Cyclobenzaprine HCl (Flexeril) 10 mg TID PRN PO MUSCLE SPASMS; Start 02/28/18 at 11:45 Diclofenac Sodium (Voltaren) 1 raimundo QID TP Last administered on 03/01/18at 08:49 ; Start 02/28/18 at 13:00 Docusate Sodium (Colace) 100 mg BID PRN PO CONSTIPATION; Start 02/28/18 at 11: 45 Enoxaparin Sodium (Lovenox 40mg Syringe) 40 mg Q24H SQ Last administered on 11:59; Start 02/28/18 at 11:00 Fluticasone Propionate (Flonase) 2 spray DAILY NS Last administered on 08:50; Start 03/01/18 at 09:00 Furosemide (Lasix) 40 mg DAILY PO Last administered on 03/01/18 08:50; Start 03/01/18 at 09:00 Guaifenesin (Mucinex) 1,200 mg PRN BID PRN PO COUGH Last administered on 20:47; Start 02/28/18 at 21:00 Lactobacillus Rhamnosus (Culturelle) 1 cap BID PO Last administered on 08:49; Start 02/28/18 at 21:00 Methylprednisolone Sodium Succinate (SOLU-Medrol 40MG VIAL) 40 mg Q8HRS IV Last administered on 03/01/18 05:44; Start 02/28/18 at 14:00 Montelukast Sodium (Singulair) 10 mg DAILY PO Last administered on 03/01/18 08 :49; Start 03/01/18 at 09:00 Non-Formulary Medication (Albuterol Sulfate (Ventolin Hfa Inhaler)) 2 puff Q4HRS INH ; Start 02/28/18 at 12:00; Status UNV Non-Formulary Medication (Clobetasol Propionate ) 1 raimundo PRN PRN TP DRY SKIN / SCALING; Start 02/28/18 at 11:45; Status UNV Non-Formulary Medication (Omeprazole ) 40 mg DAILY PO ; Start 03/01/18 at 09:00 ; Status UNV Non-Formulary Medication (Triamcinolone Acetonide (Triamcinolone Acetonide 0.5% Cream)) 1 raimundo PRN PRN TP DRY SKIN / SCALING; Start 02/28/18 at 11:45; Status UNV Nystatin (Nystop) 1 raimundo BID TP Last administered on 03/01/18 08:51; Start at 21:00 Pantoprazole Sodium (Protonix) 40 mg DAILYAC PO Last administered on 03/01/18 08:49; Start 03/01/18 at 07:30 Potassium Chloride (Klor-Con) 20 meq DAILYWBKFT PO Last administered on 9/16/ 18at 08:50; Start 03/01/18 at 08:00 Sodium Chloride (Saline Mist Nasal) 1 raimundo Q4HRS NS Last administered on at 08:51; Start 02/28/18 at 12:00 Triamcinolone Acetonide (Kenalog) 1 raimundo BID TP ; Start 02/28/18 at 21:00 Vitals/I & O Vital Sign - Last 24 Hours 02/28/18 02/28/18 02/28/18 02/28/18 11:48 13:00 15:00 15:22 Temp 97.8 97.8 Pulse 101 Resp 24 B/P (MAP) 132/77 (95) Pulse Ox 96 95 98 O2 Delivery Nasal Cannula Nasal Cannula Nasal Cannula Nasal Cannula O2 Flow Rate 3.0 3.0 3.0 3.0 02/28/18 02/28/18 02/28/18 02/28/18 19:46 19:50 20:00 23:27 Temp 98.1 97.7 98.1 97.7 Pulse 95 98 Resp 24 22 B/P (MAP) 152/79 (103) 162/77 (105) Pulse Ox 98 91 93 O2 Delivery Nasal Cannula Nasal Cannula Nasal Cannula Nasal Cannula O2 Flow Rate 3.0 3.0 3.0 3.0 03/01/18 03/01/18 03/01/18 03/01/18 03:45 05:14 07:06 08:00 Temp 97.6 98.1 97.6 98.1 Pulse 84 87 Resp 24 22 B/P (MAP) 143/69 (93) 167/67 (100) Pulse Ox 95 96 99 O2 Delivery Nasal Cannula Nasal Cannula Nasal Cannula Nasal Cannula O2 Flow Rate 3.0 3.0 3.0 3.0 03/01/18 08:15 Pulse Ox 97 O2 Delivery Nasal Cannula O2 Flow Rate 3.0 Intake and Output 02/28/18 02/28/18 03/01/18 15:00 23:00 07:00 Intake Total 50 ml 750 ml 2220 ml Balance 50 ml 750 ml 2220 ml ARAVIND IRVING MD Mar 01, 2018 10:46
[2018-03-01 11:14] VITALS: BP 142/66
[2018-03-01] MEDS: ENOXAPARIN 40 MG/0.4 ML SYRINGE. SQ SCH (12:55)
[2018-03-01 14:45] VITALS: BP 176/80
[2018-03-01 19:30] VITALS: BP 188/81
[2018-03-01] MEDS: ALPRAZolam 0.5 MG TABLET PO PRN (21:55)
[2018-03-01] MEDS: DOCUSATE SODIUM 100 MG CAPSULE. PO PRN (22:01)
[2018-03-01] MEDS: CYCLOBENZAPRINE 10 MG TABLET. PO PRN (22:01)
[2018-03-01 23:20] VITALS: BP 156/75
[2018-03-02] MEDS: ACETAMINOPHEN 325 MG TABLET. PO PRN ×3 (00:13→22:20)
[2018-03-02 03:45] VITALS: BP 184/87
[2018-03-02] MEDS: SODIUM CHLORIDE 0.65% NASAL SPRAY 45ML BOTTLE. NS SCH ×7 (04:00→23:04)
[2018-03-02 07:54] VITALS: BP 142/71
[2018-03-02] MEDS: BUDESONIDE 0.5 MG/2 ML NEBU. NEB SCH ×2 (08:18→20:20)
[2018-03-02] MEDS: IPRATRPIUM/ALBUTEROL 0.5/2.5MG 3 ML NEBU. NEB SCH ×4 (08:18→20:20)
[2018-03-02] MEDS: TRIAMCINOLONE ACETONIDE 0.1% TOPICAL CREAM 15GM TUBE. TP SCH ×2 (09:00→20:48)
[2018-03-02] MEDS: NYSTATIN TOPICAL POWDER 15GM BOTTLE. TP SCH ×2 (09:41→20:43)
[2018-03-02] MEDS: FLUTICASONE 50MCG/NASAL SPRAY 16GM BOTTLE. NS SCH (09:41)
[2018-03-02] MEDS: PANTOPRAZOLE 40 MG TABLET.DR. PO SCH (09:42)
[2018-03-02] MEDS: DOCUSATE SODIUM 100 MG CAPSULE. PO PRN (09:42)
[2018-03-02] MEDS: MONTELUKAST SODIUM 10 MG TABLET. PO SCH (09:42)
[2018-03-02] MEDS: LACTOBACILLUS RHAMNOSUS GG 1 CAPSULE. PO SCH ×2 (09:42→20:43)
[2018-03-02] MEDS: FUROSEMIDE 40 MG TABLET. PO SCH (09:42)
[2018-03-02] MEDS: POTASSIUM CHLORIDE 20 MEQ TABLET.ER. PO SCH (09:42)
[2018-03-02] MEDS: cefTRIAXone IV Push 1 GM VIAL. IVP SCH (09:43)
[2018-03-02] MEDS: DICLOFENAC SODIUM 1% TOPICAL GEL 100GM TUBE. TP SCH ×4 (09:46→20:44)
--- NOTE | 2018-03-02 09:50 | PDOC ---
IM PROGRESS NOTES- Subjective Subjective Dyspnea is improving. Patient remains anxious. Feels that she has fast heart rate. Objective Vitals Vital Signs Date Time Temp Pulse Resp B/P (MAP) Pulse Ox O2 Delivery O2 Flow Rate FiO2 03/02/18 08:31 96 Nasal Cannula 3.0 03/02/18 07:54 97.7 79 18 142/71 (94) 97.7 Input & Output Intake and Output 03/02/18 07:00 Intake Total 2140 ml Balance 2140 ml Intake Oral 2140 ml # Voids 4 Physical Exam Physical Exam General Appearance - in mild to moderate distress and chronically ill appearing Mental Status - alert, oriented to person, place, and time, anxious Chest -mild tachypnea with a few bilateral wheezes Heart - S1 and S2 normal Abdomen - soft, nontender, nondistended, no masses or organomegaly Neurological - alert, oriented, anxious Musculoskeletal - no swelling or tenderness Extremities - no pedal edema noted Skin - warm and dry Labs Laboratory Tests Test 02/28/18 10:50 02/28/18 16:45 02/28/18 20:30 03/01/18 04:00 Lactic Acid Level 2.3 mmol/L (0.4-2.0) 3.3 mmol/L (0.4-2.0) 1.3 mmol/L (0.4-2.0) Influenza Type A Antigen Negative (NEGATIVE) Influenza Type B Antigen Negative (NEGATIVE) White Blood Count 28.0 x10^3/uL (4.0-11.0) Red Blood Count 4.18 x10^6/uL (3.50-5.40) Hemoglobin 11.4 g/dL (12.0-15.5) Hematocrit 35.2 % (36.0-47.0) Mean Corpuscular Volume 84 fL (79-100) Mean Corpuscular Hemoglobin 27 pg (25-35) Mean Corpuscular Hemoglobin Concent 33 g/dL (31-37) Red Cell Distribution Width 16.8 % (11.5-14.5) Platelet Count 325 x10^3/uL (140-400) Neutrophils (%) (Auto) 95 % (31-73) Lymphocytes (%) (Auto) 3 % (24-48) Monocytes (%) (Auto) 2 % (0-9) Eosinophils (%) (Auto) 0 % (0-3) Basophils (%) (Auto) 0 % (0-3) Neutrophils # (Auto) 26.5 x10^3uL (1.8-7.7) Lymphocytes # (Auto) 0.8 x10^3/uL (1.0-4.8) Monocytes # (Auto) 0.6 x10^3/uL (0.0-1.1) Eosinophils # (Auto) 0.0 x10^3/uL (0.0-0.7) Basophils # (Auto) 0.0 x10^3/uL (0.0-0.2) Sodium Level 143 mmol/L (136-145) Potassium Level 4.1 mmol/L (3.5-5.1) Chloride Level 107 mmol/L (98-107) Carbon Dioxide Level 30 mmol/L (21-32) Anion Gap 6 (6-14) Blood Urea Nitrogen 17 mg/dL (7-20) Creatinine 0.8 mg/dL (0.6-1.0) Estimated GFR (Cockcroft-Gault) 72.0 Glucose Level 124 mg/dL (70-99) Calcium Level 8.5 mg/dL (8.5-10.1) Meds Current Medications Albuterol/ Ipratropium (Duoneb) 3 ml RTQID PRN NEB SHORTNESS OF BREATH; Start 03/01/18 at 10:45; Status UNV Alprazolam (Xanax) 0.5 mg PRN Q4HRS PRN PO ANXIETY / AGITATION Last administered on 03/01/18at 21:55; Start 03/01/18 at 10:45 Methylprednisolone Sodium Succinate (SOLU-Medrol 40MG VIAL) 40 mg 1X ONCE IV ; Start 03/02/18 at 10:00; Stop 03/02/18 at 10:01 Assessment Assessment Problems Medical Problems: (1) Acute respiratory distress Status: Acute (2) COPD with acute exacerbation Status: Acute FINAL IMPRESSION: 1. Acute chronic obstructive pulmonary disease with exacerbation. 2. Possible sepsis with leukocytosis and lactic acid present. 3. Steroid dependent chronic obstructive pulmonary disease. 4. Chronic obstructive pulmonary disease with hypoxia. 5. Tachycardia. 6. Anxiety, depression, hypertension. PLAN: Acute on chronic respiratory failure with hypoxia and hypercapnia - slowly. Continue oxygenation. Sepsis. Acid level is improving. Continue IV Rocephin. Acute exacerbation of COPD improving. Decrease Solu-Medrol to once a day. Anxiety. This will improve slowly as we decrease the dose of steroids. Acute bronchitis- continue Rocephin. Patient was worried that Zithromax that was being used for her prophylaxis for COPD has been discontinued by Dr. Zee due to potential side effects such as cardiac arrhythmia. She was worried that it may have made her heart week. I have advised her that the concern is mainly cardiac arrhythmia and not weakness of the heart. Her last stress test was around 3 years ago. 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 Tachycardia multifactorial. Leukocytosis due to steroids. Labs discussed with the patient. Hypokalemia better. Potassium is now 4.1. Hypertensive crisisbetter. Plan Plan For more details regarding further plans, please refer to the orders. YIMI CARNES MD Mar 02, 2018 09:50
[2018-03-02] MEDS ORDERED: methylPREDNISolone SOD SUCC PF 40 MG/ML VIAL. IV ONE (10:00)
[2018-03-02 11:09] VITALS: BP 181/86
--- NOTE | 2018-03-02 12:50 | PDOC ---
PULMONARY PROGRESS NOTES Subjective on 02, has sob, slightly better, has cough sputum, no pain Vitals Vital Signs Date Time Temp Pulse Resp B/P (MAP) Pulse Ox O2 Delivery O2 Flow Rate FiO2 03/02/18 11:38 Nasal Cannula 3.0 03/02/18 11:09 98.0 88 18 181/86 (117) 96 98.0 ROS: No Nausea, No Chest Pain General: Alert, Oriented X4 HEENT: Other (nc at perrl nose clear, shallow oropharynx) Lungs: Clear Cardiovascular: S1, S2 Abdomen: Soft, Non-tender Neuro Exam: Alert Extremities: No Edema Skin: Warm Labs Laboratory Tests Test 02/28/18 16:45 02/28/18 20:30 03/01/18 04:00 Influenza Type A Antigen Negative (NEGATIVE) Influenza Type B Antigen Negative (NEGATIVE) Lactic Acid Level 3.3 mmol/L (0.4-2.0) 1.3 mmol/L (0.4-2.0) White Blood Count 28.0 x10^3/uL (4.0-11.0) Red Blood Count 4.18 x10^6/uL (3.50-5.40) Hemoglobin 11.4 g/dL (12.0-15.5) Hematocrit 35.2 % (36.0-47.0) Mean Corpuscular Volume 84 fL (79-100) Mean Corpuscular Hemoglobin 27 pg (25-35) Mean Corpuscular Hemoglobin Concent 33 g/dL (31-37) Red Cell Distribution Width 16.8 % (11.5-14.5) Platelet Count 325 x10^3/uL (140-400) Neutrophils (%) (Auto) 95 % (31-73) Lymphocytes (%) (Auto) 3 % (24-48) Monocytes (%) (Auto) 2 % (0-9) Eosinophils (%) (Auto) 0 % (0-3) Basophils (%) (Auto) 0 % (0-3) Neutrophils # (Auto) 26.5 x10^3uL (1.8-7.7) Lymphocytes # (Auto) 0.8 x10^3/uL (1.0-4.8) Monocytes # (Auto) 0.6 x10^3/uL (0.0-1.1) Eosinophils # (Auto) 0.0 x10^3/uL (0.0-0.7) Basophils # (Auto) 0.0 x10^3/uL (0.0-0.2) Sodium Level 143 mmol/L (136-145) Potassium Level 4.1 mmol/L (3.5-5.1) Chloride Level 107 mmol/L (98-107) Carbon Dioxide Level 30 mmol/L (21-32) Anion Gap 6 (6-14) Blood Urea Nitrogen 17 mg/dL (7-20) Creatinine 0.8 mg/dL (0.6-1.0) Estimated GFR (Cockcroft-Gault) 72.0 Glucose Level 124 mg/dL (70-99) Calcium Level 8.5 mg/dL (8.5-10.1) Medications Active Scripts Medications Dose Route/Sig Max Daily Dose Days Date Category Nystatin 15 Gm Powder 1 Latanya TP BID 02/28/18 Reported Budesonide 0.5 Mg/2 Ml Ampul.neb 0.5 Mg IH BID 04/24/17 Reported Nystatin-Triamcinolone Cream (Nystatin/Triamcin) 15 Gm Cream..g. 15 Gm TP BID 04/23/17 Reported Duoneb 0.5-3(2.5) Mg/3 Ml (Albuterol/Ipratropium) 3 Ml Ampul.neb 3 Ml NEB QID 03/14/17 Reported Ventolin Hfa Inhaler (Albuterol Sulfate) 18 Gm Hfa.aer.ad 2 Puff INH Q4HRS 03/13/17 Reported Mucinex (Guaifenesin) 1,200 Mg Tbmp.12hr 1,200 Mg PO PRN BID PRN 03/13/17 Reported Melatonin 3 Mg Tablet 10 Mg PO 03/13/17 Reported Xanax (Alprazolam) 0.5 Mg Tablet 0.5 Mg PO PRN Q6HRS PRN 01/24/15 Rx Omeprazole 40 Mg Capsule.dr 40 Mg PO DAILY 01/24/15 Rx Voltaren (Diclofenac Sodium) 100 Gm Gel..gram. 1 Gm TP QID 02/02/14 Reported Singulair Tablet (Montelukast Sodium) 10 Mg Tablet 1 Tab PO DAILY 02/02/14 Reported Deep Sea (Sodium Chloride) 44 Ml Preble 2 Preble NS Q4HRS 02/02/14 Reported Colace (Docusate Sodium) 100 Mg Capsule 1 Cap PO BID PRN 02/02/14 Reported Flonase (Fluticasone Propionate) 16 Gm Preble.susp 2 Preble NS DAILY 02/02/14 Reported Clotrimazole-Betamethasone Crm (Clotrimazole/Betamethasone Dip) 15 Gm Cream..g. 1 Latanya TP PRN PRN 02/02/14 Reported Triamcinolone Acetonide 0.5% Cream (Triamcinolone Acetonide) 15 Gm Cream..g. 1 Latanya TP PRN PRN 02/02/14 Reported Clobetasol Propionate 15 Gm Cream..g. 1 Latanya TP PRN PRN 02/02/14 Reported Cyclobenzaprine Hcl 10 Mg Tablet 1 Tab PO TID PRN 02/02/14 Reported Lasix (Furosemide) 40 Mg Tablet 1 Tab PO DAILY 02/02/14 Reported Potassium Chloride 20 Meq Tab.er.prt 20 Meq PO DAILY 02/02/[address] of chest on 02/19/18, reviewed, 1. Development of a small 1 cm nodule in the right costophrenic angle, as well as some more irregular subpleural density at the anterior right middle lobe, could represent new focus of inflammatory or infectious process but the appearance is nonspecific, and recommend continued follow-up. 2. Improvement in previously seen right upper lobe groundglass opacity and in left lower lobe basilar opacity. 3. Scattered areas of pleural and parenchymal scarring. Impression . IMPRESSION: 1. Acute on chronic respiratory failure secondary to acute exacerbation of chronic obstructive pulmonary disease, acute bronchitis 2. Acute exacerbation of chronic obstructive pulmonary disease. 3. Acute bronchitis. 4. ?Sepsis. 5. Hypertension. 6. Diabetes mellitus. 7. Ex-smoker. 8. Obesity, snoring and excessive daytime sleepiness, probable obstructive sleep apnea-hypopnea syndrome. 9. abnl ct of chest Plan . PLAN AND RECOMMENDATION: 1. Titrate FiO2 to keep O2 saturation 92%. 2. bronchodilator. 3. Inhaled corticosteroid. 4. cont Rocephin. 5. Lovenox for DVT prophylaxis. 6. Protonix for stress ulcer prophylaxis. 7. Monitor respiratory status 8. OFF STEROIDS 9. repeat CT of the chest 4-6 months feels better. home in JAGDISH CARTER MD Mar 02, 2018 12:50
[2018-03-02] MEDS: ENOXAPARIN 40 MG/0.4 ML SYRINGE. SQ SCH (15:24)
[2018-03-02 15:29] VITALS: BP 165/78
[2018-03-02 19:45] VITALS: BP 179/105
[2018-03-02] MEDS: ALPRAZolam 0.5 MG TABLET PO PRN (20:43)
[2018-03-02] MEDS: CYCLOBENZAPRINE 10 MG TABLET. PO PRN (20:46)
[2018-03-02 23:00] VITALS: BP 178/97
[2018-03-03 03:05] VITALS: BP 143/74
[2018-03-03] MEDS: ALBUTEROL SULFATE 2.5 MG/3 ML NEBU. NEB PRN (03:09)
[2018-03-03] MEDS: ALPRAZolam 0.5 MG TABLET PO PRN ×2 (03:13→08:44)
[2018-03-03] MEDS: SODIUM CHLORIDE 0.65% NASAL SPRAY 45ML BOTTLE. NS SCH ×3 (03:14→12:00)
[2018-03-03 04:38] LABS: BASO % 0 % (0-3); EOS % 0 % (0-3); HEMATOCRIT 34.4 % (36.0-47.0); LYMPH # 3.1 x10^3/uL (1.0-4.8); LYMPH % 16 % (24-48); MEAN CORPUSCULAR HEMOGLOBIN 27 pg (25-35); MEAN CORPUSCULAR HGB CONC 32 g/dL (31-37); MEAN CORPUSCULAR VOLUME 84 fL (79-100); MONO # 1.4 x10^3/uL (0.0-1.1); MONO % 7 % (0-9); NEUT # 14.8 x10^3uL (1.8-7.7); NEUT % 77 % (31-73); PLATELET COUNT 350 x10^3/uL (140-400); RED BLOOD COUNT 4.08 x10^6/uL (3.50-5.40); RED CELL DISTRIBUTION WIDTH 17.1 % (11.5-14.5); WHITE BLOOD COUNT 19.4 x10^3/uL (4.0-11.0)
[2018-03-03 05:01] LABS: CALCIUM 8.3 mg/dL (8.5-10.1); CREATININE 0.8 mg/dL (0.6-1.0); POTASSIUM 3.2 mmol/L (3.5-5.1)
[2018-03-03] MEDS: BUDESONIDE 0.5 MG/2 ML NEBU. NEB SCH (06:59)
[2018-03-03 07:00] VITALS: BP 156/74
[2018-03-03] MEDS: IPRATRPIUM/ALBUTEROL 0.5/2.5MG 3 ML NEBU. NEB SCH ×2 (07:00→10:52)
[2018-03-03] MEDS: LACTOBACILLUS RHAMNOSUS GG 1 CAPSULE. PO SCH (08:44)
[2018-03-03] MEDS: DOCUSATE SODIUM 100 MG CAPSULE. PO PRN (08:45)
[2018-03-03] MEDS: POTASSIUM CHLORIDE 20 MEQ TABLET.ER. PO SCH (08:45)
[2018-03-03] MEDS: PANTOPRAZOLE 40 MG TABLET.DR. PO SCH (08:45)
[2018-03-03] MEDS: FUROSEMIDE 40 MG TABLET. PO SCH (08:45)
[2018-03-03] MEDS: MONTELUKAST SODIUM 10 MG TABLET. PO SCH (08:45)
[2018-03-03] MEDS: FLUTICASONE 50MCG/NASAL SPRAY 16GM BOTTLE. NS SCH (08:46)
[2018-03-03] MEDS: cefTRIAXone IV Push 1 GM VIAL. IVP SCH (08:46)
[2018-03-03] MEDS: NYSTATIN TOPICAL POWDER 15GM BOTTLE. TP SCH (08:46)
[2018-03-03] MEDS: TRIAMCINOLONE ACETONIDE 0.1% TOPICAL CREAM 15GM TUBE. TP SCH (08:46)
[2018-03-03] MEDS: DICLOFENAC SODIUM 1% TOPICAL GEL 100GM TUBE. TP SCH ×2 (08:47→13:00)
--- NOTE | 2018-03-03 09:25 | DISCH ---
DISCHARGE INSTRUCTIONS Condition on Discharge Condition on Discharge: Stable Activity After Discharge Activity Instructions for Disc: Activity as tolerated Exercise Instruction after Dis: Progress as tolerated Weight Bearing Status after Di: Full weight bearing Diet after Discharge Diet after Discharge: Cardiac, Diabetic No Calorie Level Additional Diet Restrictions: no added sugar Diet Texture: Regular Swallowing Supervision: None needed Checks after Discharge Checks after discharge: Check blood press - daily, Check blood sugar, ac/hs Contacting the DR. after DC Call your doctor for: Concerns you may have Treatment/Equipment after DC Adaptive Equipment Issued: None Discharge Respiratory Equipmen: Oxygen (Continue as previously), Nebulizer YIMI CARNES MD Mar 03, 2018 09:25
[2018-03-03] MEDS ORDERED: CIPR500T94 PO (09:28)
--- NOTE | 2018-03-03 09:36 | PDOC3 ---
IM DISCHARGE SUMMARY Date of Admission Date of Admission Date of Admission: Feb 28, 2018 at 08:45 Date of Discharge Date of Discharge 03/03/18 Consults Consults Pillo Zee MD Labs Labs Laboratory Tests Test 02/28/18 10:50 02/28/18 16:45 02/28/18 20:30 03/01/18 04:00 Lactic Acid Level 2.3 mmol/L (0.4-2.0) 3.3 mmol/L (0.4-2.0) 1.3 mmol/L (0.4-2.0) Influenza Type A Antigen Negative (NEGATIVE) Influenza Type B Antigen Negative (NEGATIVE) White Blood Count 28.0 x10^3/uL (4.0-11.0) Red Blood Count 4.18 x10^6/uL (3.50-5.40) Hemoglobin 11.4 g/dL (12.0-15.5) Hematocrit 35.2 % (36.0-47.0) Mean Corpuscular Volume 84 fL (79-100) Mean Corpuscular Hemoglobin 27 pg (25-35) Mean Corpuscular Hemoglobin Concent 33 g/dL (31-37) Red Cell Distribution Width 16.8 % (11.5-14.5) Platelet Count 325 x10^3/uL (140-400) Neutrophils (%) (Auto) 95 % (31-73) Lymphocytes (%) (Auto) 3 % (24-48) Monocytes (%) (Auto) 2 % (0-9) Eosinophils (%) (Auto) 0 % (0-3) Basophils (%) (Auto) 0 % (0-3) Neutrophils # (Auto) 26.5 x10^3uL (1.8-7.7) Lymphocytes # (Auto) 0.8 x10^3/uL (1.0-4.8) Monocytes # (Auto) 0.6 x10^3/uL (0.0-1.1) Eosinophils # (Auto) 0.0 x10^3/uL (0.0-0.7) Basophils # (Auto) 0.0 x10^3/uL (0.0-0.2) Sodium Level 143 mmol/L (136-145) Potassium Level 4.1 mmol/L (3.5-5.1) Chloride Level 107 mmol/L (98-107) Carbon Dioxide Level 30 mmol/L (21-32) Anion Gap 6 (6-14) Blood Urea Nitrogen 17 mg/dL (7-20) Creatinine 0.8 mg/dL (0.6-1.0) Estimated GFR (Cockcroft-Gault) 72.0 Glucose Level 124 mg/dL (70-99) Calcium Level 8.5 mg/dL (8.5-10.1) Test 03/03/18 03:40 White Blood Count 19.4 x10^3/uL (4.0-11.0) Red Blood Count 4.08 x10^6/uL (3.50-5.40) Hemoglobin 11.0 g/dL (12.0-15.5) Hematocrit 34.4 % (36.0-47.0) Mean Corpuscular Volume 84 fL (79-100) Mean Corpuscular Hemoglobin 27 pg (25-35) Mean Corpuscular Hemoglobin Concent 32 g/dL (31-37) Red Cell Distribution Width 17.1 % (11.5-14.5) Platelet Count 350 x10^3/uL (140-400) Neutrophils (%) (Auto) 77 % (31-73) Lymphocytes (%) (Auto) 16 % (24-48) Monocytes (%) (Auto) 7 % (0-9) Eosinophils (%) (Auto) 0 % (0-3) Basophils (%) (Auto) 0 % (0-3) Neutrophils # (Auto) 14.8 x10^3uL (1.8-7.7) Lymphocytes # (Auto) 3.1 x10^3/uL (1.0-4.8) Monocytes # (Auto) 1.4 x10^3/uL (0.0-1.1) Eosinophils # (Auto) 0.0 x10^3/uL (0.0-0.7) Basophils # (Auto) 0.0 x10^3/uL (0.0-0.2) Sodium Level 144 mmol/L (136-145) Potassium Level 3.2 mmol/L (3.5-5.1) Chloride Level 107 mmol/L (98-107) Carbon Dioxide Level 33 mmol/L (21-32) Anion Gap 4 (6-14) Blood Urea Nitrogen 17 mg/dL (7-20) Creatinine 0.8 mg/dL (0.6-1.0) Estimated GFR (Cockcroft-Gault) 72.0 Glucose Level 94 mg/dL (70-99) Calcium Level 8.3 mg/dL (8.5-10.1) Brief hospital course Brief hospital course This 67 year old fe male who presented with acute respiratory distress, cough and congestion. She was admitted for acute on chronic respiratory failure and exacerbation of COPD with bronchitis. For more details regarding the past history, family history, social history, surgical history and other details, please refer to History and Physical. 1. Acute chronic obstructive pulmonary disease with exacerbation. 2. Possible sepsis with leukocytosis and lactic acid present. 3. Steroid dependent chronic obstructive pulmonary disease. 4. Chronic obstructive pulmonary disease with hypoxia. 5. Tachycardia. 6. Anxiety, depression, hypertension. PLAN: Acute on chronic respiratory failure with hypoxia and hypercapnia - slowly. Continue oxygenation. Sepsis. Acid level is improving. Continue IV Rocephin. Change to Cipro 500 mg twice a day with food for 5 days. Acute exacerbation of COPD improving. Decrease Solu-Medrol to once a day. Change to prednisone 40 mg daily for 3 days then 30 mg daily for 3 days then 20 mg daily for 3 days and then 10 mg daily for 3 days. Anxiety. This will improve slowly as we decrease the dose of steroids. Acute bronchitis- continue Rocephin. Patient was worried that Zithromax that was being used for her prophylaxis for COPD has been discontinued by Dr. Zee due to potential side effects such as cardiac arrhythmia. She was worried that it may have made her heart weak. I have advised her that the concern is mainly cardiac arrhythmia and not weakness of the heart. Her last stress test was around 3 years ago. I advised her to follow with Dr. 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 Tachycardia multifactorial. Leukocytosis due to steroids. Improving with steroid taper. Hypokalemia better. Potassium is now 4.1. Potassium dropped again today to 3.2. Replace it with potassium chloride 40 meq 1. Repeat potassium chloride 20 mEq 1 at home this afternoon. Instructions given to the staff. Hypertensive crisisbetter. Patient's condition is improved with IV steroids and antibiotics. She'll be discharged on Cipro 500 mg twice a day for 5 days. Disposition home . condition at the time of discharge improving .see me in the office in 5 days. Medications Medications reviewed and reconciled for discharge. Allergy Allergies Coded Allergies Type Severity Reaction Last Updated Verified Penicillins Allergy Intermediate rash 01/06/18 Yes amoxicillin Allergy Intermediate asthma 12/01/17 Yes carvedilol Allergy Intermediate asthma 12/01/17 Yes cinnamon Allergy Intermediate 12/01/17 Yes clavulanic acid Allergy Intermediate asthma 12/01/17 Yes codeine Allergy Intermediate hallucinations and itching 12/01/17 Yes lemon Allergy Intermediate 12/01/17 No lisinopril Allergy Intermediate 01/02/18 Yes morphine Allergy Intermediate Rash 12/01/17 No olanzapine Allergy Intermediate asthma 12/01/17 Yes perfume Allergy Intermediate 12/01/17 Yes ropinirole Allergy Intermediate asthma 12/01/17 Yes tree nut Allergy Intermediate 12/01/17 Yes bromide salts Allergy Mild 01/02/18 Yes doxycycline Adverse Reaction Intermediate nausea 12/01/17 Yes losartan Adverse Reaction Intermediate excessive sleepiness 12/01/17 Yes zolpidem Adverse Reaction Intermediate sleep walking and eating 12/01/17 Yes Uncoded Allergies Type Severity Reaction Last Updated Verified vanilla Allergy Intermediate 02/03/14 Follow up in 5 days. Comments Discharge Management - 35 minutes. For other details please refer to discharge instructions YIMI CARNES MD Mar 03, 2018 09:36
[2018-03-03] MEDS ORDERED: POTASSIUM CHLORIDE 20 MEQ TABLET.ER. PO ONE (10:00)
[2018-03-03] MEDS: ENOXAPARIN 40 MG/0.4 ML SYRINGE. SQ SCH (11:00)
[2018-03-03 11:13] VITALS: BP 153/76
== END 2018-03-03 14:08 | disposition home or self-care (01) | DRG 871 ==
LOC: ER 07:30 → 2 SOUTH 08:45 → 2 NORTH 18:08
PROVIDERS: ADMIT Internal Medicine; ATTEND Internal Medicine
DX: A41.9 Sepsis, unspecified organism (principal); J96.21 Acute and chronic respiratory failure with hypoxia; J96.22 Acute and chronic respiratory failure with hypercapnia; J44.0 Chronic obstructive pulmonary disease with (acute) lower respiratory infection; J44.1 Chronic obstructive pulmonary disease with (acute) exacerbation; I16.9 Hypertensive crisis, unspecified; E66.9 Obesity, unspecified; F32.9 Major depressive disorder, single episode, unspecified; F41.9 Anxiety disorder, unspecified; G25.81 Restless legs syndrome; I10 Essential (primary) hypertension; J20.9 Acute bronchitis, unspecified; E11.40 Type 2 diabetes mellitus with diabetic neuropathy, unspecified; G89.29 Other chronic pain; M19.90 Unspecified osteoarthritis, unspecified site; K21.9 Gastro-esophageal reflux disease without esophagitis; M79.7 Fibromyalgia; E87.6 Hypokalemia; Z79.52 Long term (current) use of systemic steroids; Z68.37 Body mass index [BMI] 37.0-37.9, adult; Z82.49 Family history of ischemic heart disease and other diseases of the circulatory system; Z82.5 Family history of asthma and other chronic lower respiratory diseases; Z87.891 Personal history of nicotine dependence; Z96.649 Presence of unspecified artificial hip joint; Z99.81 Dependence on supplemental oxygen; Z90.49 Acquired absence of other specified parts of digestive tract; Z98.51 Tubal ligation status; Z88.1 Allergy status to other antibiotic agents; Z88.5 Allergy status to narcotic agent; Z88.0 Allergy status to penicillin; Z88.8 Allergy status to other drugs, medicaments and biological substances
CPT/HCPCS: 36415; 71045; 80048; 80053; 82550; 82805; 83605; 83735; 83880; 84484; 85007; 85025; 87040; 87804; 93005; 94640; 94760; 96365; 96375; J0690; J0696; J1650; J2920; J2930; J7030; J7613; J7620; J7626; 97110; 97116; 97530; 99285-25

== ENCOUNTER 2018-06-12 21:15 | Emergency (ER) | payer MEDICARE ==
[~2018-06-12] VITALS: Ht 160 cm; Wt 95.3 kg
[~2018-06-12 21:15] MED LIST changes: +ALBU2.5V8 IH; +CIPR500T94 PO; -DILT120C80 PO; +DILT120C85 PO; -HYDR-2762 PO; +HYDR-2765 PO; +HYDR-3164 PO; -HYDR-971 PO; +NYST15PO9 TP; +POLY17PO28 PO; -POLY17PO3 PO; -PROAIR HFA8.5 GM IH
[2018-06-12 21:44] VITALS: BP 157/85
[2018-06-15] MEDS ORDERED: PRED-220 PO (19:19)
[2018-06-15] MEDS ORDERED: NYST100054 PO (19:19)
[2018-06-15] MEDS ORDERED: NYST15CR TP (19:31)
[2018-06-15] MEDS ORDERED: OMEP20TA63 PO (19:31)
[2018-06-15] MEDS ORDERED: ACET325T9 PO (19:31)
[2018-06-15] MEDS ORDERED: LOSA100T14 PO (19:31)
[2018-06-15] MEDS ORDERED: HYDR-2765 PO (19:31)
[2018-06-15] MEDS ORDERED: TRIA15OI TP (19:31)
== END 2018-06-12 22:41 | disposition left against medical advice (07) ==
LOC: ER 21:15
DX: S69.91XA Unspecified injury of right wrist, hand and finger(s), initial encounter (principal); Z53.21 Procedure and treatment not carried out due to patient leaving prior to being seen by health care provider; X58.XXXA Exposure to other specified factors, initial encounter; Y93.89 Activity, other specified; Y92.89 Other specified places as the place of occurrence of the external cause; Y99.8 Other external cause status

== ENCOUNTER 2018-08-19 04:14 | Inpatient (IN) | payer MEDICARE ==
[~2018-08-19] VITALS: Ht 157.5 cm; Wt 93.2 kg
[~2018-08-19 04:14] MED LIST changes: +LINE600T PO; +LOSA100T14 PO; +NYST15CR TP; +OMEP20TA63 PO; +TRIA15OI TP
[2018-08-19] MEDS ORDERED: IPRATRPIUM/ALBUTEROL 0.5/2.5MG 3 ML NEBU. NEB ONE (04:30)
[2018-08-19] MEDS ORDERED: DEXTROSE 50% 25 GM / 50ML DISP.SYRIN. IV PRN (04:45)
[2018-08-19] MEDS ORDERED: ACETAMINOPHEN 325 MG TABLET. PO PRN (04:45)
[2018-08-19] MEDS ORDERED: ONDANSETRON PF 4 MG/2 ML VIAL. IV PRN (04:45)
--- NOTE | 2018-08-19 04:54 | PHYS DOC ---
Past Medical History Past Medical History: Anxiety, Arthritis, Asthma, Bronchitis, COPD, Depression , Diabetes-Type II, Fibromyalgia, GERD, Hypertension, Other Additional Past Medical Histor: mood disorder, neuropathy, chronic headache, DJD, chronic back pain, RLS Past Surgical History: Cholecystectomy, Hip Replacement, Tonsillectomy, Tubal ligation, Other Additional Past Surgical Histo: vertebroplasty, knee surgery, hip repair on R, L hip replaced Alcohol Use: None Drug Use: None Adult General Chief Complaint Chief Complaint: SHORTNESS OF BREATH HPI HPI Patient is a 68 year old who presents to the ED with shortness of breath. Much of the interview was unable to be obtained due to patient's shortness of breath. Patient stated that she has multiple diagnosis of different lung diseases, some of which are bronchiectasis, emphysema, asthma, fibrosis, and some others. She reports that her shortness of breath and cough became worse 5 days ago. She is in close contact with Dr. Samuel and his office. She reports she already has prescriptions for steroid bursts and breathing treatments at home. Patient reports that she has given herself a several breathing treatments today and 60 mg prednisone. Neither of these have helped, and she started feeling feverish earlier in the evening, reaching 100.7 at its highest. Denies trauma. HPI limited due to patient's respiratory effort. Review of Systems Review of Systems Constitutional: Admits fever or chills [] Respiratory: Admits cough, sputum production, shortness of breath. Remaining review of systems was unable to be obtained due to refusal by patient and respiratory status. Current Medications Current Medications Current Medications Medications (Trade) Dose Ordered Sig/Sylvester Start Time Stop Time Status Last Admin Dose Admin Albuterol/ Ipratropium (Duoneb) 3 ml 1X ONCE 08/19/18 04:30 08/19/18 04:31 DC 08/19/18 04:26 3 ML Allergies Allergies Allergies Coded Allergies Type Severity Reaction Last Updated Verified Penicillins Allergy Intermediate rash 06/19/18 Yes amoxicillin Allergy Intermediate asthma 12/01/17 Yes carvedilol Allergy Intermediate asthma 12/01/17 Yes cinnamon Allergy Intermediate 12/01/17 Yes clavulanic acid Allergy Intermediate asthma 12/01/17 Yes codeine Allergy Intermediate hallucinations and itching 12/01/17 Yes lemon Allergy Intermediate 06/17/18 Yes lisinopril Allergy Intermediate 01/02/18 Yes morphine Allergy Intermediate Rash 06/17/18 Yes olanzapine Allergy Intermediate asthma 12/01/17 Yes perfume Allergy Intermediate 12/01/17 Yes ropinirole Allergy Intermediate asthma 12/01/17 Yes tree nut Allergy Intermediate 12/01/17 Yes bromide salts Allergy Mild 01/02/18 Yes I S O L A T I O N *CONTACT* Allergy Unknown 06/23/18 Yes doxycycline Adverse Reaction Intermediate nausea 12/01/17 Yes zolpidem Adverse Reaction Intermediate sleep walking and eating 12/01/17 Yes Uncoded Allergies Type Severity Reaction Last Updated Verified vanilla Allergy Intermediate 02/03/14 Physical Exam Physical Exam Constitutional: Well developed, well nourished, notable labored breathing HENT: Normocephalic, atraumatic, bilateral external ears normal, nose normal. [] Eyes: EOMI, conjunctiva normal, no discharge. [] Neck: Normal range of motion, no tenderness, supple, no stridor. [] Cardiovascular: Tachycardic. No murmur or gallops Lungs & Thorax: Diffuse wheezing throughout all lung almazan. No notable crackles or rhonchi Abdomen: Soft, no tenderness Skin: Warm, dry, no erythema, no rash. [] Back: No tenderness, no CVA tenderness. [] Extremities: Thin lower extremities. No tenderness, ROM intact, no edema. [] Neurologic: Alert and oriented X 3, normal motor function, normal sensory function, no focal deficits noted. [] Psychologic: Affect anxious, judgement normal. Current Patient Data Vital Signs Vital Signs Date Time Temp Pulse Resp B/P (MAP) Pulse Ox O2 Delivery O2 Flow Rate FiO2 08/19/18 04:26 97 Nasal Cannula 3.0 08/19/18 04:15 99.0 132 26 154/74 (100) 99.0 EKG EKG @0523 Sinus tachycardia at 120bpm, NO ST elevation Radiology/Procedures Radiology/Procedures PROCEDURE: PORTABLE CHEST 1V Single view chest dated 08/19/2018. Comparison made to 06/17/2018. CLINICAL INDICATION: Shortness of breath. FINDINGS: Single upright view of the chest shows stable heart and mediastinal contours. Biapical scarring, unchanged. Lungs are somewhat hyperinflated but otherwise clear. No consolidation or pleural effusion. No pneumothorax. IMPRESSION: No acute radiographic abnormality. Stable findings compared to 06/17/2018. Electronically signed by: Pj Engel MD (08/19/2018 5:06 AM) [facility] Course & Med Decision Making Course & Med Decision Making Pertinent Labs and Imaging studies reviewed. (See chart for details) Patient is a 68-year-old female who presents to the ED with progressive shortness of breath and cough 5 days. Chest x-ray stable. Labs obtained and posted to chart. EKG stable. Patient has several pre-existing lung diseases and comorbidities. She failed expected and usual outpatient treatment at home. Will admit for further evaluation of this exacerbation. Patient requiring admission for further evaluation and treatment. Discussed with Dr. Samuel (PCP) who is in agreement with admission. Discussed findings and plan with patient and family, who acknowledge understanding and agreement. Dragon Disclaimer Dragon Disclaimer This electronic medical record was generated, in whole or in part, using a voice recognition dictation system. Departure Departure Impression: Primary Impression: Respiratory distress Additional Impression: Failure of outpatient treatment Disposition: 09 ADMITTED INPATIENT Admitting Physician: Yimi Samuel Condition: STABLE Referrals: YIMI SAMUEL MD (PCP) Scripts Azithromycin (AZITHROMYCIN TABLET) 250 Mg Tablet 250 MG PO Q24H for bronchitis for 4 Days, #4 TAB Prov: YIMI SAMUEL MD 08/21/18 Problem Qualifiers PJ ONOFRE DO Aug 19, 2018 04:54
[2018-08-19] MEDS ORDERED: DEXAMETHASONE SOD PHOS 20 MG/5 ML VIAL. IV ONE (05:00)
--- NOTE | 2018-08-19 05:09 | RAD ---
Single view chest dated 08/19/2018. Comparison made to 06/17/2018. CLINICAL INDICATION: Shortness of breath. FINDINGS: Single upright view of the chest shows stable heart and mediastinal contours. Biapical scarring, unchanged. Lungs are somewhat hyperinflated but otherwise clear. No consolidation or pleural effusion. No pneumothorax. IMPRESSION: No acute radiographic abnormality. Stable findings compared to 06/17/2018. Electronically signed by: Pj Engel MD (08/19/2018 5:06 AM) [facility]
[2018-08-19 05:39] LABS: BASO # 0.1 x10^3/uL (0.0-0.2); BASO % 1 % (0-3); EOS % 0 % (0-3); HEMATOCRIT 37.8 % (36.0-47.0); LYMPH # 1.8 x10^3/uL (1.0-4.8); LYMPH % 7 % (24-48); MEAN CORPUSCULAR HEMOGLOBIN 26 pg (25-35); MEAN CORPUSCULAR HGB CONC 32 g/dL (31-37); MEAN CORPUSCULAR VOLUME 83 fL (79-100); MONO # 1.5 x10^3/uL (0.0-1.1); MONO % 6 % (0-9); NEUT # 20.9 x10^3uL (1.8-7.7); NEUT % 86 % (31-73); PLATELET COUNT 455 x10^3/uL (140-400); RED BLOOD COUNT 4.58 x10^6/uL (3.50-5.40); WHITE BLOOD COUNT 24.4 x10^3/uL (4.0-11.0)
[2018-08-19 05:53] LABS: CREATININE 0.9 mg/dL (0.6-1.0); GFR 62.6; POTASSIUM 3.6 mmol/L (3.5-5.1)
[2018-08-19 06:07] LABS: ALBUMIN 3.7 g/dL (3.4-5.0); MAGNESIUM 1.9 mg/dL (1.8-2.4); TOTAL BILIRUBIN 0.7 mg/dL (0.2-1.0); TOTAL PROTEIN 7.3 g/dL (6.4-8.2)
[2018-08-19 06:10] VITALS: BP 118/53
[2018-08-19 06:21] LABS: INFLUENZA A PATIENT NEGATIVE (NEGATIVE); INFLUENZA B PATIENT NEGATIVE (NEGATIVE)
--- NOTE | 2018-08-19 06:50 | EKG ---
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
[2018-08-19 07:00] VITALS: BP 82/55
[2018-08-19] MEDS: IPRATRPIUM/ALBUTEROL 0.5/2.5MG 3 ML NEBU. NEB SCH ×6 (07:04→19:48)
[2018-08-19 08:00] LABS: % BANDS 4 % (0-9); % BASOS 1 % (0-3); % LYMPHS 7 % (24-48); % MONOS 7 % (0-10); % SEGS 81 % (35-66); PLT ESTIMATE INCREASED (ADEQUATE)
[2018-08-19] MEDS ORDERED: INSULIN LISPRO 300 UNITS/3 ML INSULN.PEN. SQ SCH (08:00)
--- NOTE | 2018-08-19 09:32 | NUR ---
IP: Pt has a hx of mrsa in hand on 06/16/18. Pt to be in contact precautions until there is a mrsa screen verified and no open wounds.
[2018-08-19] MEDS ORDERED: DOCUSATE SODIUM 100 MG CAPSULE. PO PRN (09:45)
[2018-08-19] MEDS ORDERED: SODIUM CHLORIDE 0.65% NASAL SPRAY 45ML BOTTLE. NS PRN (10:00)
[2018-08-19] MEDS ORDERED: IPRATRPIUM/ALBUTEROL 0.5/2.5MG 3 ML NEBU. NEB PRN (10:00)
[2018-08-19] MEDS ORDERED: ALBUTEROL SULFATE 2.5 MG/3 ML NEBU. NEB PRN (10:00)
--- NOTE | 2018-08-19 10:18 | NUR ---
SS following for discharge planning. SS reviewed pt chart. Pt is from home and is currently requiring oxygen. No discharge needs noted at this time. SS will continue to follow for pending discharge needs.
--- NOTE | 2018-08-19 10:20 | PDOC ---
Provider Note Provider Note Patient seen. History and Physical dictated. See dictation#[id number] YIMI CARNES MD Aug 19, 2018 10:20
[2018-08-19] MEDS ORDERED: FLUTICASONE 50MCG/NASAL SPRAY 16GM BOTTLE. NS SCH (10:30)
[2018-08-19] MEDS: LOSARTAN POTASSIUM 50 MG TABLET. PO SCH (10:30)
[2018-08-19] MEDS: BUDESONIDE 0.5 MG/2 ML NEBU. NEB SCH ×2 (10:56→19:48)
[2018-08-19] MEDS: DICLOFENAC SODIUM 1% TOPICAL GEL 100GM TUBE. TP SCH ×4 (10:57→21:28)
[2018-08-19] MEDS: ALPRAZolam 0.5 MG TABLET PO PRN (10:59)
[2018-08-19] MEDS: PANTOPRAZOLE 40 MG TABLET.DR. PO SCH (10:59)
[2018-08-19] MEDS: predniSONE 20 MG TABLET PO SCH (10:59)
[2018-08-19] MEDS: FUROSEMIDE 40 MG TABLET. PO SCH (10:59)
[2018-08-19] MEDS: NYSTATIN TOPICAL POWDER 15GM BOTTLE. TP SCH ×2 (10:59→21:29)
[2018-08-19] MEDS: POTASSIUM CHLORIDE 20 MEQ TABLET.ER. PO SCH (10:59)
--- NOTE | 2018-08-19 10:59 | HP ---
ADMIT DATE: 08/19/2018 HISTORY OF PRESENT ILLNESS: This 68-year-old female started having cough, congestion and significant nasal drainage about a week ago. She started getting worse. She tried more breathing treatments and prednisone, but did not get any better. Yesterday, she took 60 mg of prednisone. I had asked her to come to the office yesterday, but she felt that she was very ill and could not come and early this morning, came to the Emergency Room because of worsening dyspnea, cough and congestion. The patient is known to have chronic respiratory failure with severe COPD, on oxygen by nasal cannula at home. In the Emergency Room, the patient was examined. Chest x-ray was negative. Flu screen was negative, but because of her worsening condition, the patient was admitted for further evaluation and management. REVIEW OF SYSTEMS: At the present time, the patient is complaining of some epistaxis, sinus drainage, cough with yellow expectoration, persistent cough and chest soreness because of coughing, dyspnea, fatigue, headaches and weakness. She denies any nausea, vomiting, diarrhea or constipation at this time. Other systems reviewed and are negative. PAST MEDICAL HISTORY: The patient has a history of hypertension; hyperlipidemia; asthma; COPD; chronic respiratory failure, on oxygen by nasal cannula 3 liters per minute at home; pulmonary nodule, followed by CT; gastroesophageal reflux disease; bronchiectasis; hiatal hernia; gastroparesis secondary to diabetes; anxiety; bipolar disorder; depression; low back pain, chronic with history of compression fracture and vertebroplasty and degenerative disk disease; history of meniscal tear on the right lateral and right medial knee; fibromyalgia; chronic renal insufficiency; CKD 2; diabetes mellitus type 2 and osteoporosis. PAST SURGICAL HISTORY: The patient had breast biopsy in 2007, negative; cholecystomy; total hip replacement on the left side; total knee replacement in 05/2011; tubal ligation; tonsillectomy and adenoidectomy. FAMILY HISTORY: Positive for coronary artery disease. SOCIAL HISTORY: No history of smoking, alcoholism or drug abuse. ALLERGIES: THE PATIENT IS ALLERGIC TO PENICILLIN THAT CAUSES A RASH; AMOXICILLIN, ASTHMA; CARVEDILOL, ASTHMA; CINNAMON; CLAVULANIC ACID, ASTHMA; CODEINE, HALLUCINATIONS AND ITCHING; LEMON; MORPHINE CAUSES RASH; OLANZAPINE CAUSES ASTHMA; PERFUME; ROPINIROLE CAUSES ASTHMA; PEANUT AND DOXYCYCLINE CAUSES NAUSEA. LOSARTAN CAUSES EXCESSIVE SLEEPINESS, but I have removed it from the allergy list as she has been able to take losartan and she takes it at night. ZOLPIDEM, SLEEP WALKING AND EATING. THE PATIENT IS ALLERGIC TO VANILLA, BROMIDE AND LISINOPRIL; THESE ARE LISTED MILD ALLERGIES. MEDICATIONS: I have reviewed and reconciled. PHYSICAL EXAMINATION: GENERAL: The patient is an elderly female who is alert, oriented and in mild respiratory distress. The patient is chronically ill and in mild distress. VITAL SIGNS: Temperature maximum 99, pulse 132 per minute, respirations 26 per minute and blood pressure 154/74 mmHg. The patient is on oxygen by nasal cannula 3 liters per minute. EYES: Pupils reacting to light. Conjunctivae pale. Sclerae muddy. HENT: Throat is congested. NECK: Supple. JVP normal. No thyromegaly. Trachea midline. LUNGS: Decreased breath sounds at bases. CARDIOVASCULAR SYSTEM: S1, S2 regular. ABDOMEN: Soft, nontender. No guarding, no rigidity. Bowel sounds present. SKIN: The patient has some skin candidiasis. EXTREMITIES: No edema. The patient has some degenerative changes and tenderness of the joints. CENTRAL NERVOUS SYSTEM: Alert, oriented and anxious. LABORATORY FINDINGS: Chest x-ray shows no acute abnormalities. Influenza A and B screens are negative. Glucose 197. Lactic acid is 1.4. Troponin is normal. BNP 196. Cardiac enzymes are normal. Sodium 143, potassium 3.6, BUN 14 and creatinine 0.9. AST 18, ALT 33. Albumin 3.7. Total protein 7.3. CO2 is 32. WBC count 24.4, hemoglobin 12. IMPRESSION: 1. [id number] respiratory failure with exacerbation of chronic obstructive pulmonary disease and asthma, on oxygen by nasal cannula 3 liters per minute. 2. Acute bronchitis. 3. Chronic obstructive pulmonary disease with exacerbation. 4. Diabetes mellitus type 2. 5. Gastroesophageal reflux disease. 6. Hyperlipidemia. 7. Bipolar 1 disorder. 8. Fibromyalgia. 9. Gastroparesis. 10. Hiatal hernia. 11. Osteoporosis. 12. Allergic rhinitis. 13. Degenerative disk disease of the lumbosacral spine. 14. Osteoarthritis. 15. Depression. 16. Anemia of chronic disease. PLAN: The patient has multiple allergies to antibiotics. I will consult Dr. Sims for Infectious Disease evaluation and management and consult Dr. Nunez for Pulmonary evaluation and management. Continue inhalers and breathing treatments. The patient was given one dose of dexamethasone in the Emergency Room. I will order oral prednisone tomorrow. Leukocytosis may be due to steroid intake at home. I will hold Flonase nasal spray due to recent epistaxis. I will also hold Lovenox today and restart it tomorrow for deep vein thrombosis prophylaxis. For details, please review the orders. YIMI CARNES MD DR: ERIN/monica JOB#: [id number] / [id number]
[2018-08-19 11:00] VITALS: BP 129/65
[2018-08-19] MEDS: INSULIN LISPRO 300 UNITS/3 ML INSULN.PEN. SQ SCH ×2 (11:00→17:54)
[2018-08-19] MEDS ORDERED: ENOXAPARIN 40 MG/0.4 ML SYRINGE. SQ SCH (11:00)
--- NOTE | 2018-08-19 12:20 | PDOC ---
Infectious Disease Note Vital Signs: Vital Signs Vital Signs Date Time Temp Pulse Resp B/P (MAP) Pulse Ox O2 Delivery O2 Flow Rate FiO2 08/19/18 11:37 Nasal Cannula 2.0 08/19/18 10:30 120 82/55 08/19/18 07:06 96 08/19/18 07:00 98.7 18 98.7 Medications: Inpatient Meds: Current Medications Medications (Trade) Dose Ordered Sig/Sylvester Start Time Stop Time Status Last Admin Dose Admin Acetaminophen (Tylenol) 650 mg Q6HRS 08/19/18 12:00 Albuterol Sulfate (Ventolin Neb Soln) 2.5 mg PRN Q4HRS PRN 08/19/18 10:00 Albuterol/ Ipratropium (Duoneb) 3 ml PRN Q4HRS PRN 08/19/18 10:00 UNV Alprazolam (Xanax) 0.5 mg PRN Q6HRS PRN 08/19/18 09:45 08/19/18 10:59 0.5 MG Budesonide (Pulmicort) 0.5 mg RTBID 08/19/18 10:30 08/19/18 10:56 0.5 MG Dexamethasone Sodium Phosphate (Decadron) 10 mg 1X ONCE 08/19/18 05:00 08/19/18 05:01 DC 08/19/18 05:41 10 MG Dextrose (Dextrose 50%-Water Syringe) 12.5 gm PRN Q15MIN PRN 08/19/18 04:45 Diclofenac Sodium (Voltaren) 1 raimundo QID 08/19/18 13:00 08/19/18 10:57 1 RAIMUNDO Docusate Sodium (Colace) 100 mg PRN BID PRN 08/19/18 09:45 Enoxaparin Sodium (Lovenox 40mg Syringe) 40 mg Q24H 08/20/18 11:00 Fluticasone Propionate (Flonase) 2 spray DAILY 08/19/18 10:30 08/19/18 10:30 DC Furosemide (Lasix) 40 mg DAILY 08/19/18 10:30 08/19/18 10:59 40 MG Guaifenesin (Mucinex) 1,200 mg PRN BID PRN 08/19/18 21:00 Insulin Human Lispro (HumaLOG) 0-10 UNITS TIDBFRMEAL 08/19/18 11:30 Lorazepam (Ativan) 0.5 mg 1X ONCE 08/19/18 05:00 08/19/18 05:01 DC 08/19/18 05:43 0.5 MG Losartan Potassium (Cozaar) 100 mg DAILY 08/19/18 10:30 Montelukast Sodium (Singulair) 10 mg QHS 08/19/18 21:00 Nystatin (Nystop) 1 raimundo BID 08/19/18 11:00 08/19/18 10:59 1 RAIMUNDO Ondansetron HCl (Zofran) 4 mg PRN Q8HRS PRN 08/19/18 04:45 08/20/18 04:44 Pantoprazole Sodium (Protonix) 40 mg DAILYAC 08/19/18 10:30 08/19/18 10:59 40 MG Potassium Chloride (Klor-Con) 20 meq DAILY 08/19/18 10:30 08/19/18 10:59 20 MEQ Prednisone (Prednisone) 40 mg DAILY 08/19/18 11:00 08/19/18 10:59 40 MG Sodium Chloride (Saline Mist Nasal) 1 raimundo PRN Q1HR PRN 08/19/18 10:00 Labs: Lab Laboratory Tests Test 08/19/18 05:18 08/19/18 05:38 08/19/18 07:45 08/19/18 09:27 White Blood Count 24.4 x10^3/uL (4.0-11.0) Red Blood Count 4.58 x10^6/uL (3.50-5.40) Hemoglobin 12.0 g/dL (12.0-15.5) Hematocrit 37.8 % (36.0-47.0) Mean Corpuscular Volume 83 fL (79-100) Mean Corpuscular Hemoglobin 26 pg (25-35) Mean Corpuscular Hemoglobin Concent 32 g/dL (31-37) Red Cell Distribution Width 17.0 % (11.5-14.5) Platelet Count 455 x10^3/uL (140-400) Neutrophils (%) (Auto) 86 % (31-73) Lymphocytes (%) (Auto) 7 % (24-48) Monocytes (%) (Auto) 6 % (0-9) Eosinophils (%) (Auto) 0 % (0-3) Basophils (%) (Auto) 1 % (0-3) Neutrophils # (Auto) 20.9 x10^3uL (1.8-7.7) Lymphocytes # (Auto) 1.8 x10^3/uL (1.0-4.8) Monocytes # (Auto) 1.5 x10^3/uL (0.0-1.1) Eosinophils # (Auto) 0.0 x10^3/uL (0.0-0.7) Basophils # (Auto) 0.1 x10^3/uL (0.0-0.2) Segmented Neutrophils % 81 % (35-66) Band Neutrophils % 4 % (0-9) Lymphocytes % 7 % (24-48) Monocytes % 7 % (0-10) Basophils % 1 % (0-3) Platelet Estimate Increased (ADEQUATE) Large Platelets Present Sodium Level 143 mmol/L (136-145) Potassium Level 3.6 mmol/L (3.5-5.1) Chloride Level 100 mmol/L (98-107) Carbon Dioxide Level 32 mmol/L (21-32) Anion Gap 11 (6-14) Blood Urea Nitrogen 14 mg/dL (7-20) Creatinine 0.9 mg/dL (0.6-1.0) Estimated GFR (Cockcroft-Gault) 62.6 BUN/Creatinine Ratio 16 (6-20) Glucose Level 105 mg/dL (70-99) Lactic Acid Level 1.4 mmol/L (0.4-2.0) Calcium Level 10.0 mg/dL (8.5-10.1) Magnesium Level 1.9 mg/dL (1.8-2.4) Total Bilirubin 0.7 mg/dL (0.2-1.0) Aspartate Amino Transf (AST/SGOT) 18 U/L (15-37) Alanine Aminotransferase (ALT/SGPT) 33 U/L (14-59) Alkaline Phosphatase 70 U/L (46-116) Creatine Kinase 77 U/L (26-192) Creatine Kinase MB (Mass) 1.4 ng/mL (0.0-3.6) Creatine Kinase MB Relative Index 1.8 % (0-4) Troponin I Quantitative < 0.017 ng/mL (0.000-0.055) < 0.017 ng/mL (0.000-0.055) VY-Zsb-W-Type Natriuretic Peptide 196 pg/mL (0-124) Total Protein 7.3 g/dL (6.4-8.2) Albumin 3.7 g/dL (3.4-5.0) Albumin/Globulin Ratio 1.0 (1.0-1.7) Influenza Type A Antigen Negative (NEGATIVE) Influenza Type B Antigen Negative (NEGATIVE) Glucose (Fingerstick) 197 mg/dL (70-99) Test 08/19/18 10:45 08/19/18 10:56 Troponin I Quantitative < 0.017 ng/mL (0.000-0.055) Glucose (Fingerstick) 148 mg/dL (70-99) Objective: Assessment: Pt seen and examined IMP: COPD exacerbation Multiple drug allergies Leucocytosis on steroids H/O +MRSA Lt 3rd finger infection,resolved DM Plan: Plan of Care Z celestine cont inhalers cont supportive care Thank you JOSE MAYNARD MD Aug 19, 2018 12:20
[2018-08-19] MEDS ORDERED: AZITHROMYCIN 250 MG TABLET. PO ONE (13:00)
[2018-08-19] MEDS: ACETAMINOPHEN 325 MG TABLET. PO SCH ×2 (14:27→17:56)
[2018-08-19 15:00] VITALS: BP 145/87
--- NOTE | 2018-08-19 16:17 | PDOC ---
PULMONARY PROGRESS NOTES Vitals Vital Signs Date Time Temp Pulse Resp B/P (MAP) Pulse Ox O2 Delivery O2 Flow Rate FiO2 08/19/18 15:00 97.6 100 18 145/87 (106) 95 Nasal Cannula 3.0 97.6 General: Alert, Oriented X4 HEENT: Other Lungs: Clear, Wheezing Cardiovascular: S1, S2 Abdomen: Soft, Non-tender Extremities: No Edema Labs Laboratory Tests Test 08/19/18 05:18 08/19/18 05:38 08/19/18 07:45 08/19/18 09:27 White Blood Count 24.4 x10^3/uL (4.0-11.0) Red Blood Count 4.58 x10^6/uL (3.50-5.40) Hemoglobin 12.0 g/dL (12.0-15.5) Hematocrit 37.8 % (36.0-47.0) Mean Corpuscular Volume 83 fL (79-100) Mean Corpuscular Hemoglobin 26 pg (25-35) Mean Corpuscular Hemoglobin Concent 32 g/dL (31-37) Red Cell Distribution Width 17.0 % (11.5-14.5) Platelet Count 455 x10^3/uL (140-400) Neutrophils (%) (Auto) 86 % (31-73) Lymphocytes (%) (Auto) 7 % (24-48) Monocytes (%) (Auto) 6 % (0-9) Eosinophils (%) (Auto) 0 % (0-3) Basophils (%) (Auto) 1 % (0-3) Neutrophils # (Auto) 20.9 x10^3uL (1.8-7.7) Lymphocytes # (Auto) 1.8 x10^3/uL (1.0-4.8) Monocytes # (Auto) 1.5 x10^3/uL (0.0-1.1) Eosinophils # (Auto) 0.0 x10^3/uL (0.0-0.7) Basophils # (Auto) 0.1 x10^3/uL (0.0-0.2) Segmented Neutrophils % 81 % (35-66) Band Neutrophils % 4 % (0-9) Lymphocytes % 7 % (24-48) Monocytes % 7 % (0-10) Basophils % 1 % (0-3) Platelet Estimate Increased (ADEQUATE) Large Platelets Present Sodium Level 143 mmol/L (136-145) Potassium Level 3.6 mmol/L (3.5-5.1) Chloride Level 100 mmol/L (98-107) Carbon Dioxide Level 32 mmol/L (21-32) Anion Gap 11 (6-14) Blood Urea Nitrogen 14 mg/dL (7-20) Creatinine 0.9 mg/dL (0.6-1.0) Estimated GFR (Cockcroft-Gault) 62.6 BUN/Creatinine Ratio 16 (6-20) Glucose Level 105 mg/dL (70-99) Lactic Acid Level 1.4 mmol/L (0.4-2.0) Calcium Level 10.0 mg/dL (8.5-10.1) Magnesium Level 1.9 mg/dL (1.8-2.4) Total Bilirubin 0.7 mg/dL (0.2-1.0) Aspartate Amino Transf (AST/SGOT) 18 U/L (15-37) Alanine Aminotransferase (ALT/SGPT) 33 U/L (14-59) Alkaline Phosphatase 70 U/L (46-116) Creatine Kinase 77 U/L (26-192) Creatine Kinase MB (Mass) 1.4 ng/mL (0.0-3.6) Creatine Kinase MB Relative Index 1.8 % (0-4) Troponin I Quantitative < 0.017 ng/mL (0.000-0.055) < 0.017 ng/mL (0.000-0.055) TB-Lmc-C-Type Natriuretic Peptide 196 pg/mL (0-124) Total Protein 7.3 g/dL (6.4-8.2) Albumin 3.7 g/dL (3.4-5.0) Albumin/Globulin Ratio 1.0 (1.0-1.7) Influenza Type A Antigen Negative (NEGATIVE) Influenza Type B Antigen Negative (NEGATIVE) Glucose (Fingerstick) 197 mg/dL (70-99) Test 08/19/18 10:45 08/19/18 10:56 Troponin I Quantitative < 0.017 ng/mL (0.000-0.055) Glucose (Fingerstick) 148 mg/dL (70-99) Laboratory Tests Test 08/19/18 05:18 08/19/18 05:38 08/19/18 07:45 08/19/18 09:27 White Blood Count 24.4 x10^3/uL (4.0-11.0) Red Blood Count 4.58 x10^6/uL (3.50-5.40) Hemoglobin 12.0 g/dL (12.0-15.5) Hematocrit 37.8 % (36.0-47.0) Mean Corpuscular Volume 83 fL (79-100) Mean Corpuscular Hemoglobin 26 pg (25-35) Mean Corpuscular Hemoglobin Concent 32 g/dL (31-37) Red Cell Distribution Width 17.0 % (11.5-14.5) Platelet Count 455 x10^3/uL (140-400) Neutrophils (%) (Auto) 86 % (31-73) Lymphocytes (%) (Auto) 7 % (24-48) Monocytes (%) (Auto) 6 % (0-9) Eosinophils (%) (Auto) 0 % (0-3) Basophils (%) (Auto) 1 % (0-3) Neutrophils # (Auto) 20.9 x10^3uL (1.8-7.7) Lymphocytes # (Auto) 1.8 x10^3/uL (1.0-4.8) Monocytes # (Auto) 1.5 x10^3/uL (0.0-1.1) Eosinophils # (Auto) 0.0 x10^3/uL (0.0-0.7) Basophils # (Auto) 0.1 x10^3/uL (0.0-0.2) Segmented Neutrophils % 81 % (35-66) Band Neutrophils % 4 % (0-9) Lymphocytes % 7 % (24-48) Monocytes % 7 % (0-10) Basophils % 1 % (0-3) Platelet Estimate Increased (ADEQUATE) Large Platelets Present Sodium Level 143 mmol/L (136-145) Potassium Level 3.6 mmol/L (3.5-5.1) Chloride Level 100 mmol/L (98-107) Carbon Dioxide Level 32 mmol/L (21-32) Anion Gap 11 (6-14) Blood Urea Nitrogen 14 mg/dL (7-20) Creatinine 0.9 mg/dL (0.6-1.0) Estimated GFR (Cockcroft-Gault) 62.6 BUN/Creatinine Ratio 16 (6-20) Glucose Level 105 mg/dL (70-99) Lactic Acid Level 1.4 mmol/L (0.4-2.0) Calcium Level 10.0 mg/dL (8.5-10.1) Magnesium Level 1.9 mg/dL (1.8-2.4) Total Bilirubin 0.7 mg/dL (0.2-1.0) Aspartate Amino Transf (AST/SGOT) 18 U/L (15-37) Alanine Aminotransferase (ALT/SGPT) 33 U/L (14-59) Alkaline Phosphatase 70 U/L (46-116) Creatine Kinase 77 U/L (26-192) Creatine Kinase MB (Mass) 1.4 ng/mL (0.0-3.6) Creatine Kinase MB Relative Index 1.8 % (0-4) Troponin I Quantitative < 0.017 ng/mL (0.000-0.055) < 0.017 ng/mL (0.000-0.055) ZN-Wtv-E-Type Natriuretic Peptide 196 pg/mL (0-124) Total Protein 7.3 g/dL (6.4-8.2) Albumin 3.7 g/dL (3.4-5.0) Albumin/Globulin Ratio 1.0 (1.0-1.7) Influenza Type A Antigen Negative (NEGATIVE) Influenza Type B Antigen Negative (NEGATIVE) Glucose (Fingerstick) 197 mg/dL (70-99) Test 08/19/18 10:45 08/19/18 10:56 Troponin I Quantitative < 0.017 ng/mL (0.000-0.055) Glucose (Fingerstick) 148 mg/dL (70-99) Medications Active Scripts Medications Dose Route/Sig Max Daily Dose Days Date Category Zyvox (Linezolid) 600 Mg Tablet 600 Mg PO BID 14 06/20/18 Rx Losartan Potassium 100 Mg Tablet 100 Mg PO DAILY 06/15/18 Reported Tylenol (Acetaminophen) 325 Mg Tablet 650 Mg PO Q6HRS 06/15/18 Reported Prilosec Otc (Omeprazole Magnesium) 20 Mg Tablet.dr 40 Mg PO DAILY 06/15/18 Reported Nystatin 15 Gm Cream..g. 1 Latanya TP PRN BID PRN 06/15/18 Reported Prednisone (Prednisone) 10 Mg Tablet 10 Mg PO DAILY 06/15/18 Reported Nystatin 100,000 Unit/1 Ml Oral.susp 5 Ml PO QID 06/15/18 Reported Nystatin 15 Gm Powder 1 Latanya TP BID 02/28/18 Reported Budesonide 0.5 Mg/2 Ml Ampul.neb 0.5 Mg IH BID 04/24/17 Reported Duoneb 0.5-3(2.5) Mg/3 Ml (Albuterol/Ipratropium) 3 Ml Ampul.neb 3 Ml NEB QID 03/14/17 Reported Ventolin Hfa Inhaler (Albuterol Sulfate) 18 Gm Hfa.aer.ad 2 Puff INH Q4HRS 03/13/17 Reported Mucinex (Guaifenesin) 1,200 Mg Tbmp.12hr 1,200 Mg PO PRN BID PRN 03/13/17 Reported Xanax (Alprazolam) 0.5 Mg Tablet 0.5 Mg PO PRN Q6HRS PRN 01/24/15 Rx Voltaren (Diclofenac Sodium) 100 Gm Gel..gram. 1 Gm TP QID 02/02/14 Reported Singulair Tablet (Montelukast Sodium) 10 Mg Tablet 1 Tab PO DAILY 02/02/14 Reported Deep Sea (Sodium Chloride) 44 Ml Byers 2 Byers NS Q4HRS 02/02/14 Reported Colace (Docusate Sodium) 100 Mg Capsule 1 Cap PO BID PRN 02/02/14 Reported Flonase (Fluticasone Propionate) 16 Gm Byers.susp 2 Byers NS DAILY 02/02/14 Reported Clotrimazole-Betamethasone Crm (Clotrimazole/Betamethasone Dip) 15 Gm Cream..g. 1 Latanya TP PRN PRN 02/02/14 Reported Cyclobenzaprine Hcl 10 Mg Tablet 1 Tab PO TID PRN 02/02/14 Reported Lasix (Furosemide) 40 Mg Tablet 1 Tab PO DAILY 02/02/14 Reported Potassium Chloride 20 Meq Tab.er.prt 20 Meq PO DAILY 02/02/14 Reported Impression . full note to be dictated AECOPD AGREE WITH CURRENT RX THANKS CRISTINO KRUGER MD Aug 19, 2018 16:17
[2018-08-19 19:00] VITALS: BP 122/68
[2018-08-19] MEDS: MONTELUKAST SODIUM 10 MG TABLET. PO SCH (21:29)
[2018-08-19 23:00] VITALS: BP 142/79
[2018-08-20] MEDS: ACETAMINOPHEN 325 MG TABLET. PO SCH ×5 (00:20→23:04)
--- NOTE | 2018-08-20 02:26 | CONS ---
DATE OF CONSULTATION: 08/19/2018 REFERRING PHYSICIAN: Dr. Samuel. REASON FOR CONSULTATION: Antibiotic management. HISTORY OF PRESENT ILLNESS: A 68-year-old female, with history of chronic COPD, on home O2 and prednisone at home, diabetes, recent left third finger MRSA skin infection, status post I and D, treated with linezolid, presented with worsening shortness of breath, cough with green yellow sputum, intermittent bleeding from the nose due to dry mucosa with some subjective fevers and chills. The patient is on 3 liters of O2, got methylprednisone in the ER. White count was elevated, but could have been as she is on steroids. Normal lactate. ProBNP at 196. Chest x-ray showed no acute radiographic abnormality, stable findings compared to 06/17/2018. The patient remains afebrile. The patient denies any nausea, vomiting, diarrhea, abdominal pain, dysuria or hematuria. Left third finger has resolved. Denies any sick contact. PAST MEDICAL HISTORY: Asthma, bronchitis, COPD, bronchiectasis, chronic COPD, on home O2 at 3 liters, diabetes, gastroesophageal reflux disease, hypertension, fibromyalgia, neuropathy, chronic low back pain, osteoporosis, depression, bipolar disorder, chronic kidney disease, hiatal hernia, carpal tunnel, left third finger MRSA skin infection, status post I and D in June 2018, resolved. PAST SURGICAL HISTORY: Vertebroplasty at T6, cholecystectomy, left total hip replacement, total knee replacement, tubal ligation, tonsillectomy. REVIEW OF SYSTEMS: Negative except for above in HPI. ALLERGIES: PENICILLIN, AMOXICILLIN AND DOXYCYCLINE. She has tolerated cephalosporins and Z-LISA and Cipro. Uncertain of what happens if she takes AMOXICILLIN or PENICILLIN as she was very as an infant and toddler when her parents were told not to give her penicillin. SOCIAL HISTORY: Former smoker, no alcohol. Lives at home. FAMILY HISTORY: Noncontributory. CURRENT MEDICATIONS: Enoxaparin, montelukast, guaifenesin, diclofenac, albuterol, ipratropium, acetaminophen, insulin, prednisone, nystatin, pantoprazole, losartan, potassium chloride, furosemide, budesonide, docusate, alprazolam, dextrose, ondansetron p.r.n. PHYSICAL EXAMINATION: VITAL SIGNS: Temperature 98.7, pulse 120, respiratory rate 18, blood pressure 82/55, oxygen saturation 96% on 2 liters. T-max 99. GENERAL: Alert and oriented x 3 female, pleasant, cooperative, sitting in bed, in no acute distress. HEENT: Normocephalic, atraumatic. Anicteric. No oral lesions. Edentulous. NECK: Supple. No JVD. LUNGS: Decreased breath sounds with some expiratory rhonchi. HEART: S1, S2 regular. ABDOMEN: Soft, nontender, nondistended. No rebound, no guarding. EXTREMITIES: No edema, no cyanosis, no clubbing. CENTRAL NERVOUS SYSTEM: Alert and oriented x 3. Grossly nonfocal. PSYCHIATRIC: Cooperative, appropriate mood and affect. LABORATORY DATA: WBC 24.4, hemoglobin 12.0, hematocrit 37.8, platelets 455, neutrophils 86. Sodium 143, potassium 3.6, chloride 100, bicarbonate 32, BUN 14, creatinine 0.9, glucose 105. ProBNP 196. Troponin normal. LFTs within normal limits. Influenza screen negative. MRSA PCR pending. UA pending with culture. Chest x-ray negative for any acute process. IMPRESSION: 1. Acute on chronic respiratory failure, likely exacerbation of chronic obstructive pulmonary disease,pt is on chronic home O2 by nasal cannula 3 liters. 2. Acute bronchitis. 3. Diabetes mellitus. 4. Gastroesophageal reflux disease. 5. History of asthma. 6. Bipolar disorder. 7. Fibromyalgia. 8. Gastroparesis. 9. Osteoporosis. 10. Degenerative joint disease. 11. History of left third finger methicillin-resistant Staphylococcus aureus skin infection, resolved. 12. Leukocytosis, could be from steroids. RECOMMENDATIONS: 1. Continue inhaler treatment and breathing treatments. 2. The patient is on steroids, status post dexamethasone in ER. 3. We will start the patient on Z-LISA.Pt has tolerated that well in the past 4. Follow up cultures and lab in a.m. 5. Continue supportive care. 6. Pulmonary is consulted. Thank you, Dr. Samuel, for consulting Infectious Disease to participate in this patient's care. If you have any questions, do not hesitate to contact me. JOSE MAYNARD MD DR: PRICILLA/monica JOB#: [id number] / [id number] HODA
[2018-08-20 03:11] VITALS: BP 129/79
[2018-08-20 04:11] LABS: BASO # 0.1 x10^3/uL (0.0-0.2); BASO % 0 % (0-3); EOS % 0 % (0-3); HEMATOCRIT 34.4 % (36.0-47.0); HEMOGLOBIN 10.6 g/dL (12.0-15.5); LYMPH # 1.2 x10^3/uL (1.0-4.8); LYMPH % 4 % (24-48); MEAN CORPUSCULAR HEMOGLOBIN 26 pg (25-35); MEAN CORPUSCULAR HGB CONC 31 g/dL (31-37); MEAN CORPUSCULAR VOLUME 84 fL (79-100); MONO # 2.7 x10^3/uL (0.0-1.1); MONO % 9 % (0-9); NEUT # 25.1 x10^3uL (1.8-7.7); NEUT % 86 % (31-73); PLATELET COUNT 447 x10^3/uL (140-400); RED BLOOD COUNT 4.11 x10^6/uL (3.50-5.40); RED CELL DISTRIBUTION WIDTH 17.1 % (11.5-14.5); WHITE BLOOD COUNT 29.1 x10^3/uL (4.0-11.0)
[2018-08-20 05:37] LABS: CALCIUM 9.4 mg/dL (8.5-10.1); CREATININE 0.8 mg/dL (0.6-1.0); GFR 71.8; MAGNESIUM 2.5 mg/dL (1.8-2.4); POTASSIUM 4.2 mmol/L (3.5-5.1)
[2018-08-20] MEDS: BUDESONIDE 0.5 MG/2 ML NEBU. NEB SCH ×2 (06:12→20:29)
[2018-08-20] MEDS: IPRATRPIUM/ALBUTEROL 0.5/2.5MG 3 ML NEBU. NEB SCH ×4 (06:12→20:00)
[2018-08-20 06:16] LABS: BILIRUBIN,URINE NEGATIVE (NEG); CLARITY,URINE CLEAR; COLOR,URINE YELLOW; NITRITE,URINE NEGATIVE (NEG); PROTEIN,URINE NEGATIVE (NEG-TRACE); UROBILINOGEN,URINE 0.2 mg/dL (0.2 mg/dL)
[2018-08-20 06:54] LABS: BACTERIA,URINE 0 /HPF (0-FEW); RBC,URINE 0 /HPF (0-2); SQUAMOUS EPITHELIAL CELL,UR FEW /LPF
[2018-08-20 07:00] VITALS: BP 120/61
[2018-08-20] MEDS: INSULIN LISPRO 300 UNITS/3 ML INSULN.PEN. SQ SCH ×3 (07:30→16:23)
[2018-08-20] MEDS: DICLOFENAC SODIUM 1% TOPICAL GEL 100GM TUBE. TP SCH ×4 (07:57→20:47)
[2018-08-20] MEDS: FUROSEMIDE 40 MG TABLET. PO SCH (08:00)
[2018-08-20] MEDS: predniSONE 20 MG TABLET PO SCH (08:00)
[2018-08-20] MEDS: PANTOPRAZOLE 40 MG TABLET.DR. PO SCH (08:01)
[2018-08-20] MEDS: POTASSIUM CHLORIDE 20 MEQ TABLET.ER. PO SCH (08:02)
[2018-08-20] MEDS: LOSARTAN POTASSIUM 50 MG TABLET. PO SCH (08:03)
[2018-08-20] MEDS: NYSTATIN TOPICAL POWDER 15GM BOTTLE. TP SCH ×2 (08:04→20:47)
--- NOTE | 2018-08-20 09:21 | PDOC ---
PULMONARY PROGRESS NOTES Subjective Patient states she is still SOA, has some back pain, severe coughing spells Vitals Vital Signs Date Time Temp Pulse Resp B/P (MAP) Pulse Ox O2 Delivery O2 Flow Rate FiO2 08/20/18 07:00 98.2 107 18 120/61 (80) 97 Nasal Cannula 98.2 08/20/18 06:13 3.0 General: Alert, Oriented X4 HEENT: Other Lungs: Clear, Wheezing Cardiovascular: S1, S2 Abdomen: Soft, Non-tender Extremities: No Edema Labs Laboratory Tests Test 08/19/18 05:18 08/19/18 05:38 08/19/18 06:30 08/19/18 07:45 White Blood Count 24.4 x10^3/uL (4.0-11.0) Red Blood Count 4.58 x10^6/uL (3.50-5.40) Hemoglobin 12.0 g/dL (12.0-15.5) Hematocrit 37.8 % (36.0-47.0) Mean Corpuscular Volume 83 fL (79-100) Mean Corpuscular Hemoglobin 26 pg (25-35) Mean Corpuscular Hemoglobin Concent 32 g/dL (31-37) Red Cell Distribution Width 17.0 % (11.5-14.5) Platelet Count 455 x10^3/uL (140-400) Neutrophils (%) (Auto) 86 % (31-73) Lymphocytes (%) (Auto) 7 % (24-48) Monocytes (%) (Auto) 6 % (0-9) Eosinophils (%) (Auto) 0 % (0-3) Basophils (%) (Auto) 1 % (0-3) Neutrophils # (Auto) 20.9 x10^3uL (1.8-7.7) Lymphocytes # (Auto) 1.8 x10^3/uL (1.0-4.8) Monocytes # (Auto) 1.5 x10^3/uL (0.0-1.1) Eosinophils # (Auto) 0.0 x10^3/uL (0.0-0.7) Basophils # (Auto) 0.1 x10^3/uL (0.0-0.2) Segmented Neutrophils % 81 % (35-66) Band Neutrophils % 4 % (0-9) Lymphocytes % 7 % (24-48) Monocytes % 7 % (0-10) Basophils % 1 % (0-3) Platelet Estimate Increased (ADEQUATE) Large Platelets Present Sodium Level 143 mmol/L (136-145) Potassium Level 3.6 mmol/L (3.5-5.1) Chloride Level 100 mmol/L (98-107) Carbon Dioxide Level 32 mmol/L (21-32) Anion Gap 11 (6-14) Blood Urea Nitrogen 14 mg/dL (7-20) Creatinine 0.9 mg/dL (0.6-1.0) Estimated GFR (Cockcroft-Gault) 62.6 BUN/Creatinine Ratio 16 (6-20) Glucose Level 105 mg/dL (70-99) Lactic Acid Level 1.4 mmol/L (0.4-2.0) Calcium Level 10.0 mg/dL (8.5-10.1) Magnesium Level 1.9 mg/dL (1.8-2.4) Total Bilirubin 0.7 mg/dL (0.2-1.0) Aspartate Amino Transf (AST/SGOT) 18 U/L (15-37) Alanine Aminotransferase (ALT/SGPT) 33 U/L (14-59) Alkaline Phosphatase 70 U/L (46-116) Creatine Kinase 77 U/L (26-192) Creatine Kinase MB (Mass) 1.4 ng/mL (0.0-3.6) Creatine Kinase MB Relative Index 1.8 % (0-4) Troponin I Quantitative < 0.017 ng/mL (0.000-0.055) < 0.017 ng/mL (0.000-0.055) WI-Fbq-Y-Type Natriuretic Peptide 196 pg/mL (0-124) Total Protein 7.3 g/dL (6.4-8.2) Albumin 3.7 g/dL (3.4-5.0) Albumin/Globulin Ratio 1.0 (1.0-1.7) Influenza Type A Antigen Negative (NEGATIVE) Influenza Type B Antigen Negative (NEGATIVE) Nasal Screen MRSA (PCR) Positive (Negative) Test 08/19/18 09:27 08/19/18 10:45 08/19/18 10:56 08/19/18 16:45 Glucose (Fingerstick) 197 mg/dL (70-99) 148 mg/dL (70-99) 210 mg/dL (70-99) Troponin I Quantitative < 0.017 ng/mL (0.000-0.055) Test 08/19/18 20:11 08/20/18 03:00 08/20/18 03:30 08/20/18 06:02 Glucose (Fingerstick) 119 mg/dL (70-99) White Blood Count 29.1 x10^3/uL (4.0-11.0) Red Blood Count 4.11 x10^6/uL (3.50-5.40) Hemoglobin 10.6 g/dL (12.0-15.5) Hematocrit 34.4 % (36.0-47.0) Mean Corpuscular Volume 84 fL (79-100) Mean Corpuscular Hemoglobin 26 pg (25-35) Mean Corpuscular Hemoglobin Concent 31 g/dL (31-37) Red Cell Distribution Width 17.1 % (11.5-14.5) Platelet Count 447 x10^3/uL (140-400) Neutrophils (%) (Auto) 86 % (31-73) Lymphocytes (%) (Auto) 4 % (24-48) Monocytes (%) (Auto) 9 % (0-9) Eosinophils (%) (Auto) 0 % (0-3) Basophils (%) (Auto) 0 % (0-3) Neutrophils # (Auto) 25.1 x10^3uL (1.8-7.7) Lymphocytes # (Auto) 1.2 x10^3/uL (1.0-4.8) Monocytes # (Auto) 2.7 x10^3/uL (0.0-1.1) Eosinophils # (Auto) 0.0 x10^3/uL (0.0-0.7) Basophils # (Auto) 0.1 x10^3/uL (0.0-0.2) Sodium Level 144 mmol/L (136-145) Potassium Level 4.2 mmol/L (3.5-5.1) Chloride Level 104 mmol/L (98-107) Carbon Dioxide Level 32 mmol/L (21-32) Anion Gap 8 (6-14) Blood Urea Nitrogen 19 mg/dL (7-20) Creatinine 0.8 mg/dL (0.6-1.0) Estimated GFR (Cockcroft-Gault) 71.8 Glucose Level 105 mg/dL (70-99) Calcium Level 9.4 mg/dL (8.5-10.1) Magnesium Level 2.5 mg/dL (1.8-2.4) Urine Collection Type Unknown Urine Color Yellow Urine Clarity Clear Urine pH 6.0 Urine Specific [place] 1.020 Urine Protein Negative mg/dL (NEG-TRACE) Urine Glucose (UA) Negative mg/dL (NEG) Urine Ketones (Stick) Negative mg/dL (NEG) Urine Blood Negative (NEG) Urine Nitrite Negative (NEG) Urine Bilirubin Negative (NEG) Urine Urobilinogen Dipstick 0.2 mg/dL (0.2 mg/dL) Urine Leukocyte Esterase Negative (NEG) Urine RBC 0 /HPF (0-2) Urine WBC 1-4 /HPF (0-4) Urine Squamous Epithelial Cells Few /LPF Urine Bacteria 0 /HPF (0-FEW) Urine Mucus Slight /LPF Test 08/20/18 07:34 Glucose (Fingerstick) 92 mg/dL (70-99) Laboratory Tests Test 08/19/18 09:27 08/19/18 10:45 08/19/18 10:56 08/19/18 16:45 Glucose (Fingerstick) 197 mg/dL (70-99) 148 mg/dL (70-99) 210 mg/dL (70-99) Troponin I Quantitative < 0.017 ng/mL (0.000-0.055) Test 08/19/18 20:11 08/20/18 03:00 08/20/18 03:30 08/20/18 06:02 Glucose (Fingerstick) 119 mg/dL (70-99) White Blood Count 29.1 x10^3/uL (4.0-11.0) Red Blood Count 4.11 x10^6/uL (3.50-5.40) Hemoglobin 10.6 g/dL (12.0-15.5) Hematocrit 34.4 % (36.0-47.0) Mean Corpuscular Volume 84 fL (79-100) Mean Corpuscular Hemoglobin 26 pg (25-35) Mean Corpuscular Hemoglobin Concent 31 g/dL (31-37) Red Cell Distribution Width 17.1 % (11.5-14.5) Platelet Count 447 x10^3/uL (140-400) Neutrophils (%) (Auto) 86 % (31-73) Lymphocytes (%) (Auto) 4 % (24-48) Monocytes (%) (Auto) 9 % (0-9) Eosinophils (%) (Auto) 0 % (0-3) Basophils (%) (Auto) 0 % (0-3) Neutrophils # (Auto) 25.1 x10^3uL (1.8-7.7) Lymphocytes # (Auto) 1.2 x10^3/uL (1.0-4.8) Monocytes # (Auto) 2.7 x10^3/uL (0.0-1.1) Eosinophils # (Auto) 0.0 x10^3/uL (0.0-0.7) Basophils # (Auto) 0.1 x10^3/uL (0.0-0.2) Sodium Level 144 mmol/L (136-145) Potassium Level 4.2 mmol/L (3.5-5.1) Chloride Level 104 mmol/L (98-107) Carbon Dioxide Level 32 mmol/L (21-32) Anion Gap 8 (6-14) Blood Urea Nitrogen 19 mg/dL (7-20) Creatinine 0.8 mg/dL (0.6-1.0) Estimated GFR (Cockcroft-Gault) 71.8 Glucose Level 105 mg/dL (70-99) Calcium Level 9.4 mg/dL (8.5-10.1) Magnesium Level 2.5 mg/dL (1.8-2.4) Urine Collection Type Unknown Urine Color Yellow Urine Clarity Clear Urine pH 6.0 Urine Specific [place] 1.020 Urine Protein Negative mg/dL (NEG-TRACE) Urine Glucose (UA) Negative mg/dL (NEG) Urine Ketones (Stick) Negative mg/dL (NEG) Urine Blood Negative (NEG) Urine Nitrite Negative (NEG) Urine Bilirubin Negative (NEG) Urine Urobilinogen Dipstick 0.2 mg/dL (0.2 mg/dL) Urine Leukocyte Esterase Negative (NEG) Urine RBC 0 /HPF (0-2) Urine WBC 1-4 /HPF (0-4) Urine Squamous Epithelial Cells Few /LPF Urine Bacteria 0 /HPF (0-FEW) Urine Mucus Slight /LPF Test 08/20/18 07:34 Glucose (Fingerstick) 92 mg/dL (70-99) Medications Active Scripts Medications Dose Route/Sig Max Daily Dose Days Date Category Zyvox (Linezolid) 600 Mg Tablet 600 Mg PO BID 14 06/20/18 Rx Losartan Potassium 100 Mg Tablet 100 Mg PO DAILY 06/15/18 Reported Tylenol (Acetaminophen) 325 Mg Tablet 650 Mg PO Q6HRS 06/15/18 Reported Prilosec Otc (Omeprazole Magnesium) 20 Mg Tablet.dr 40 Mg PO DAILY 06/15/18 Reported Nystatin 15 Gm Cream..g. 1 Latanya TP PRN BID PRN 06/15/18 Reported Prednisone (Prednisone) 10 Mg Tablet 10 Mg PO DAILY 06/15/18 Reported Nystatin 100,000 Unit/1 Ml Oral.susp 5 Ml PO QID 06/15/18 Reported Nystatin 15 Gm Powder 1 Latanya TP BID 02/28/18 Reported Budesonide 0.5 Mg/2 Ml Ampul.neb 0.5 Mg IH BID 04/24/17 Reported Duoneb 0.5-3(2.5) Mg/3 Ml (Albuterol/Ipratropium) 3 Ml Ampul.neb 3 Ml NEB QID 03/14/17 Reported Ventolin Hfa Inhaler (Albuterol Sulfate) 18 Gm Hfa.aer.ad 2 Puff INH Q4HRS 03/13/17 Reported Mucinex (Guaifenesin) 1,200 Mg Tbmp.12hr 1,200 Mg PO PRN BID PRN 03/13/17 Reported Xanax (Alprazolam) 0.5 Mg Tablet 0.5 Mg PO PRN Q6HRS PRN 01/24/15 Rx Voltaren (Diclofenac Sodium) 100 Gm Gel..gram. 1 Gm TP QID 02/02/14 Reported Singulair Tablet (Montelukast Sodium) 10 Mg Tablet 1 Tab PO DAILY 02/02/14 Reported [place] (Sodium Chloride) 44 Ml Sabula 2 Sabula NS Q4HRS 02/02/14 Reported Colace (Docusate Sodium) 100 Mg Capsule 1 Cap PO BID PRN 02/02/14 Reported Flonase (Fluticasone Propionate) 16 Gm Sabula.susp 2 Sabula NS DAILY 02/02/14 Reported Clotrimazole-Betamethasone Crm (Clotrimazole/Betamethasone Dip) 15 Gm Cream..g. 1 Latanya TP PRN PRN 02/02/14 Reported Cyclobenzaprine Hcl 10 Mg Tablet 1 Tab PO TID PRN 02/02/14 Reported Lasix (Furosemide) 40 Mg Tablet 1 Tab PO DAILY 02/02/14 Reported Potassium Chloride 20 Meq Tab.er.prt 20 Meq PO DAILY 02/02/14 Reported Impression . PULMONARY NODULE AECOPD PLEURISY A/C RESP FAILURE H/O MRSA Plan . Reviewed office records, will obtain CT chest to follow up new 1cm nodule continue current support CRISTINO KRUGER MD Aug 20, 2018 09:21
--- NOTE | 2018-08-20 10:02 | NUR ---
C/O right shoulder pain. Requesting Flexeril be restarted. Will discuss with provider.
[2018-08-20 11:00] VITALS: BP 140/74
--- NOTE | 2018-08-20 11:06 | PDOC ---
IM PROGRESS NOTES- Objective Vitals Vital Signs Date Time Temp Pulse Resp B/P (MAP) Pulse Ox O2 Delivery O2 Flow Rate FiO2 08/20/18 07:00 98.2 107 18 120/61 (80) 97 Nasal Cannula 98.2 08/20/18 06:13 3.0 Input & Output Intake and Output 08/20/18 06:59 Intake Total 1860 ml Output Total 600 ml Balance 1260 ml Intake Oral 1860 ml Output Urine Total 600 ml Physical Exam Physical Exam GENERAL: The patient is an elderly female who is alert, oriented and in mild respiratory distress. The patient is chronically ill and in mild distress. HEENT: Throat is congested. NECK: Supple. JVP normal. No thyromegaly. Trachea midline. LUNGS: Decreased breath sounds at bases. CARDIOVASCULAR SYSTEM: S1, S2 regular. ABDOMEN: Soft, nontender. No guarding, no rigidity. Bowel sounds present. SKIN: The patient has some skin candidiasis. EXTREMITIES: No edema. The patient has some degenerative changes and tenderness of the joints. CENTRAL NERVOUS SYSTEM: Alert, oriented and anxious. Labs Laboratory Tests Test 08/19/18 05:18 08/19/18 05:38 08/19/18 06:30 08/19/18 07:45 White Blood Count 24.4 x10^3/uL (4.0-11.0) Red Blood Count 4.58 x10^6/uL (3.50-5.40) Hemoglobin 12.0 g/dL (12.0-15.5) Hematocrit 37.8 % (36.0-47.0) Mean Corpuscular Volume 83 fL (79-100) Mean Corpuscular Hemoglobin 26 pg (25-35) Mean Corpuscular Hemoglobin Concent 32 g/dL (31-37) Red Cell Distribution Width 17.0 % (11.5-14.5) Platelet Count 455 x10^3/uL (140-400) Neutrophils (%) (Auto) 86 % (31-73) Lymphocytes (%) (Auto) 7 % (24-48) Monocytes (%) (Auto) 6 % (0-9) Eosinophils (%) (Auto) 0 % (0-3) Basophils (%) (Auto) 1 % (0-3) Neutrophils # (Auto) 20.9 x10^3uL (1.8-7.7) Lymphocytes # (Auto) 1.8 x10^3/uL (1.0-4.8) Monocytes # (Auto) 1.5 x10^3/uL (0.0-1.1) Eosinophils # (Auto) 0.0 x10^3/uL (0.0-0.7) Basophils # (Auto) 0.1 x10^3/uL (0.0-0.2) Segmented Neutrophils % 81 % (35-66) Band Neutrophils % 4 % (0-9) Lymphocytes % 7 % (24-48) Monocytes % 7 % (0-10) Basophils % 1 % (0-3) Platelet Estimate Increased (ADEQUATE) Large Platelets Present Sodium Level 143 mmol/L (136-145) Potassium Level 3.6 mmol/L (3.5-5.1) Chloride Level 100 mmol/L (98-107) Carbon Dioxide Level 32 mmol/L (21-32) Anion Gap 11 (6-14) Blood Urea Nitrogen 14 mg/dL (7-20) Creatinine 0.9 mg/dL (0.6-1.0) Estimated GFR (Cockcroft-Gault) 62.6 BUN/Creatinine Ratio 16 (6-20) Glucose Level 105 mg/dL (70-99) Lactic Acid Level 1.4 mmol/L (0.4-2.0) Calcium Level 10.0 mg/dL (8.5-10.1) Magnesium Level 1.9 mg/dL (1.8-2.4) Total Bilirubin 0.7 mg/dL (0.2-1.0) Aspartate Amino Transf (AST/SGOT) 18 U/L (15-37) Alanine Aminotransferase (ALT/SGPT) 33 U/L (14-59) Alkaline Phosphatase 70 U/L (46-116) Creatine Kinase 77 U/L (26-192) Creatine Kinase MB (Mass) 1.4 ng/mL (0.0-3.6) Creatine Kinase MB Relative Index 1.8 % (0-4) Troponin I Quantitative < 0.017 ng/mL (0.000-0.055) < 0.017 ng/mL (0.000-0.055) SL-Mvn-R-Type Natriuretic Peptide 196 pg/mL (0-124) Total Protein 7.3 g/dL (6.4-8.2) Albumin 3.7 g/dL (3.4-5.0) Albumin/Globulin Ratio 1.0 (1.0-1.7) Influenza Type A Antigen Negative (NEGATIVE) Influenza Type B Antigen Negative (NEGATIVE) Nasal Screen MRSA (PCR) Positive (Negative) Test 08/19/18 09:27 08/19/18 10:45 08/19/18 10:56 08/19/18 16:45 Glucose (Fingerstick) 197 mg/dL (70-99) 148 mg/dL (70-99) 210 mg/dL (70-99) Troponin I Quantitative < 0.017 ng/mL (0.000-0.055) Test 08/19/18 20:11 08/20/18 03:00 08/20/18 03:30 08/20/18 06:02 Glucose (Fingerstick) 119 mg/dL (70-99) White Blood Count 29.1 x10^3/uL (4.0-11.0) Red Blood Count 4.11 x10^6/uL (3.50-5.40) Hemoglobin 10.6 g/dL (12.0-15.5) Hematocrit 34.4 % (36.0-47.0) Mean Corpuscular Volume 84 fL (79-100) Mean Corpuscular Hemoglobin 26 pg (25-35) Mean Corpuscular Hemoglobin Concent 31 g/dL (31-37) Red Cell Distribution Width 17.1 % (11.5-14.5) Platelet Count 447 x10^3/uL (140-400) Neutrophils (%) (Auto) 86 % (31-73) Lymphocytes (%) (Auto) 4 % (24-48) Monocytes (%) (Auto) 9 % (0-9) Eosinophils (%) (Auto) 0 % (0-3) Basophils (%) (Auto) 0 % (0-3) Neutrophils # (Auto) 25.1 x10^3uL (1.8-7.7) Lymphocytes # (Auto) 1.2 x10^3/uL (1.0-4.8) Monocytes # (Auto) 2.7 x10^3/uL (0.0-1.1) Eosinophils # (Auto) 0.0 x10^3/uL (0.0-0.7) Basophils # (Auto) 0.1 x10^3/uL (0.0-0.2) Sodium Level 144 mmol/L (136-145) Potassium Level 4.2 mmol/L (3.5-5.1) Chloride Level 104 mmol/L (98-107) Carbon Dioxide Level 32 mmol/L (21-32) Anion Gap 8 (6-14) Blood Urea Nitrogen 19 mg/dL (7-20) Creatinine 0.8 mg/dL (0.6-1.0) Estimated GFR (Cockcroft-Gault) 71.8 Glucose Level 105 mg/dL (70-99) Calcium Level 9.4 mg/dL (8.5-10.1) Magnesium Level 2.5 mg/dL (1.8-2.4) Urine Collection Type Unknown Urine Color Yellow Urine Clarity Clear Urine pH 6.0 Urine Specific [place] 1.020 Urine Protein Negative mg/dL (NEG-TRACE) Urine Glucose (UA) Negative mg/dL (NEG) Urine Ketones (Stick) Negative mg/dL (NEG) Urine Blood Negative (NEG) Urine Nitrite Negative (NEG) Urine Bilirubin Negative (NEG) Urine Urobilinogen Dipstick 0.2 mg/dL (0.2 mg/dL) Urine Leukocyte Esterase Negative (NEG) Urine RBC 0 /HPF (0-2) Urine WBC 1-4 /HPF (0-4) Urine Squamous Epithelial Cells Few /LPF Urine Bacteria 0 /HPF (0-FEW) Urine Mucus Slight /LPF Test 08/20/18 07:34 Glucose (Fingerstick) 92 mg/dL (70-99) Laboratory Tests Test 08/19/18 16:45 08/19/18 20:11 08/20/18 03:00 08/20/18 03:30 Glucose (Fingerstick) 210 mg/dL (70-99) 119 mg/dL (70-99) White Blood Count 29.1 x10^3/uL (4.0-11.0) Red Blood Count 4.11 x10^6/uL (3.50-5.40) Hemoglobin 10.6 g/dL (12.0-15.5) Hematocrit 34.4 % (36.0-47.0) Mean Corpuscular Volume 84 fL (79-100) Mean Corpuscular Hemoglobin 26 pg (25-35) Mean Corpuscular Hemoglobin Concent 31 g/dL (31-37) Red Cell Distribution Width 17.1 % (11.5-14.5) Platelet Count 447 x10^3/uL (140-400) Neutrophils (%) (Auto) 86 % (31-73) Lymphocytes (%) (Auto) 4 % (24-48) Monocytes (%) (Auto) 9 % (0-9) Eosinophils (%) (Auto) 0 % (0-3) Basophils (%) (Auto) 0 % (0-3) Neutrophils # (Auto) 25.1 x10^3uL (1.8-7.7) Lymphocytes # (Auto) 1.2 x10^3/uL (1.0-4.8) Monocytes # (Auto) 2.7 x10^3/uL (0.0-1.1) Eosinophils # (Auto) 0.0 x10^3/uL (0.0-0.7) Basophils # (Auto) 0.1 x10^3/uL (0.0-0.2) Sodium Level 144 mmol/L (136-145) Potassium Level 4.2 mmol/L (3.5-5.1) Chloride Level 104 mmol/L (98-107) Carbon Dioxide Level 32 mmol/L (21-32) Anion Gap 8 (6-14) Blood Urea Nitrogen 19 mg/dL (7-20) Creatinine 0.8 mg/dL (0.6-1.0) Estimated GFR (Cockcroft-Gault) 71.8 Glucose Level 105 mg/dL (70-99) Calcium Level 9.4 mg/dL (8.5-10.1) Magnesium Level 2.5 mg/dL (1.8-2.4) Test 08/20/18 06:02 08/20/18 07:34 Urine Collection Type Unknown Urine Color Yellow Urine Clarity Clear Urine pH 6.0 Urine Specific [place] 1.020 Urine Protein Negative mg/dL (NEG-TRACE) Urine Glucose (UA) Negative mg/dL (NEG) Urine Ketones (Stick) Negative mg/dL (NEG) Urine Blood Negative (NEG) Urine Nitrite Negative (NEG) Urine Bilirubin Negative (NEG) Urine Urobilinogen Dipstick 0.2 mg/dL (0.2 mg/dL) Urine Leukocyte Esterase Negative (NEG) Urine RBC 0 /HPF (0-2) Urine WBC 1-4 /HPF (0-4) Urine Squamous Epithelial Cells Few /LPF Urine Bacteria 0 /HPF (0-FEW) Urine Mucus Slight /LPF Glucose (Fingerstick) 92 mg/dL (70-99) Meds Current Medications Acetaminophen (Tylenol) 650 mg Q6HRS PO Last administered on 08/20/18 06:03; Start 08/19/18 at 12:00 Albuterol/ Ipratropium (Duoneb) 3 ml RTQID NEB Last administered on 08/20/18at 06 :12; Start 08/19/18 at 12:00 Azithromycin (Zithromax) 250 mg 1X ONCE PO ; Start 08/20/18 at 12:30; Stop at 12:31 Azithromycin (Zithromax) 500 mg 1X ONCE PO Last administered on 08/19/18at 14:28 ; Start 08/19/18 at 13:00; Stop 08/19/18 at 13:01; Status DC Diclofenac Sodium (Voltaren) 1 raimundo QID TP Last administered on 08/20/18 07:57; Start 08/19/18 at 13:00 Enoxaparin Sodium (Lovenox 40mg Syringe) 40 mg Q24H SQ ; Start 08/20/18 at 11:00 Guaifenesin (Mucinex) 1,200 mg PRN BID PRN PO COUGH Last administered on 08:01; Start 08/19/18 at 21:00 Insulin Human Lispro (HumaLOG) 0-10 UNITS TIDBFRMEAL SQ Last administered on 08/19/18at 17:54; Start 08/19/18 at 11:30 Montelukast Sodium (Singulair) 10 mg QHS PO Last administered on 08/19/18 21:29 ; Start 08/19/18 at 21:00 Assessment Assessment 1. Gjxyg-[id number]-[id number] respiratory failure with exacerbation of chronic obstructive pulmonary disease and asthma, on oxygen by nasal cannula 3 liters per minute. 2. Acute bronchitis. 3. Chronic obstructive pulmonary disease with exacerbation. 4. Diabetes mellitus type 2. 5. Gastroesophageal reflux disease. 6. Hyperlipidemia. 7. Bipolar 1 disorder. 8. Fibromyalgia. 9. Gastroparesis. 10. Hiatal hernia. 11. Osteoporosis. 12. Allergic rhinitis. 13. Degenerative disk disease of the lumbosacral spine. 14. Osteoarthritis. 15. Depression. 16. Anemia of chronic disease. PLAN: The patient has multiple allergies to antibiotics. I will consult Dr. Sims for Infectious Disease evaluation and management and consult Dr. Nunez for Pulmonary evaluation and management. Continue inhalers and breathing treatments. The patient was given one dose of dexamethasone in the Emergency Room. I will order oral prednisone tomorrow. Leukocytosis may be due to steroid intake at home. I will hold Flonase nasal spray due to recent epistaxis. I will also hold Lovenox today and restart it tomorrow for deep vein thrombosis prophylaxis. For details, please review the orders. Leukocytosis- WBC count is 29.1. This may be likely due to steroids. Started on Z-Eder yesterday. Discussed with Dr. Nunez. Plan Plan For more details regarding further plans, please refer to the orders. YIMI CARNES MD Aug 20, 2018 11:06
--- NOTE | 2018-08-20 11:16 | PDOC ---
Infectious Disease Note Subjective: Subjective pt has sob, not able to bring up any sputum today has pain on the rt side of the chest no f/c/n/v/d/abdo pain ROS: ROS Negative except for above. Vital Signs: Vital Signs Vital Signs Date Time Temp Pulse Resp B/P (MAP) Pulse Ox O2 Delivery O2 Flow Rate FiO2 08/20/18 07:00 98.2 107 18 120/61 (80) 97 Nasal Cannula 98.2 08/20/18 06:13 3.0 Physical Exam: PHYSICAL EXAM GENERAL: Alert and oriented x 3 female, pleasant, cooperative, sitting in bed, in no acute distress. HEENT: Normocephalic, atraumatic. Anicteric. No oral lesions. Edentulous. NECK: Supple. No JVD. LUNGS: Decreased breath sounds with some expiratory rhonchi. HEART: S1, S2 regular. ABDOMEN: Soft, nontender, nondistended. No rebound, no guarding. EXTREMITIES: No edema, no cyanosis, no clubbing. CENTRAL NERVOUS SYSTEM: Alert and oriented x 3. Grossly nonfocal. PSYCHIATRIC: Cooperative, appropriate mood and affect. Medications: Inpatient Meds: Current Medications Medications (Trade) Dose Ordered Sig/Sylvester Start Time Stop Time Status Last Admin Dose Admin Acetaminophen (Tylenol) 650 mg Q6HRS 08/19/18 12:00 08/20/18 06:03 650 MG Albuterol Sulfate (Ventolin Neb Soln) 2.5 mg PRN Q4HRS PRN 08/19/18 10:00 Albuterol/ Ipratropium (Duoneb) 3 ml PRN Q4HRS PRN 08/19/18 10:00 UNV Alprazolam (Xanax) 0.5 mg PRN Q6HRS PRN 08/19/18 09:45 08/19/18 10:59 0.5 MG Azithromycin (Zithromax) 250 mg 1X ONCE 08/20/18 12:30 08/20/18 12:31 Budesonide (Pulmicort) 0.5 mg RTBID 08/19/18 10:30 08/20/18 06:12 0.5 MG Dexamethasone Sodium Phosphate (Decadron) 10 mg 1X ONCE 08/19/18 05:00 08/19/18 05:01 DC 08/19/18 05:41 10 MG Dextrose (Dextrose 50%-Water Syringe) 12.5 gm PRN Q15MIN PRN 08/19/18 04:45 Diclofenac Sodium (Voltaren) 1 raimundo QID 08/19/18 13:00 08/20/18 07:57 1 RAIMUNDO Docusate Sodium (Colace) 100 mg PRN BID PRN 08/19/18 09:45 08/20/18 08:01 100 MG Enoxaparin Sodium (Lovenox 40mg Syringe) 40 mg Q24H 08/20/18 11:00 Fluticasone Propionate (Flonase) 2 spray DAILY 08/19/18 10:30 08/19/18 10:30 DC Furosemide (Lasix) 40 mg DAILY 08/19/18 10:30 08/20/18 08:00 40 MG Guaifenesin (Mucinex) 1,200 mg PRN BID PRN 08/19/18 21:00 08/20/18 08:01 1,200 MG Insulin Human Lispro (HumaLOG) 0-10 UNITS TIDBFRMEAL 08/19/18 11:30 08/19/18 17:54 4 UNITS Lorazepam (Ativan) 0.5 mg 1X ONCE 08/19/18 05:00 08/19/18 05:01 DC 08/19/18 05:43 0.5 MG Losartan Potassium (Cozaar) 100 mg DAILY 08/19/18 10:30 Montelukast Sodium (Singulair) 10 mg QHS 08/19/18 21:00 08/19/18 21:29 10 MG Nystatin (Nystop) 1 raimundo BID 08/19/18 11:00 08/19/18 21:29 1 RAIMUNDO Ondansetron HCl (Zofran) 4 mg PRN Q8HRS PRN 08/19/18 04:45 08/20/18 04:44 DC Pantoprazole Sodium (Protonix) 40 mg DAILYAC 08/19/18 10:30 08/20/18 08:01 40 MG Potassium Chloride (Klor-Con) 20 meq DAILY 08/19/18 10:30 08/20/18 08:02 20 MEQ Prednisone (Prednisone) 40 mg DAILY 08/19/18 11:00 08/20/18 08:00 40 MG Sodium Chloride (Saline Mist Nasal) 1 raimundo PRN Q1HR PRN 08/19/18 10:00 Labs: Lab Laboratory Tests Test 08/19/18 16:45 08/19/18 20:11 08/20/18 03:00 08/20/18 03:30 Glucose (Fingerstick) 210 mg/dL (70-99) 119 mg/dL (70-99) White Blood Count 29.1 x10^3/uL (4.0-11.0) Red Blood Count 4.11 x10^6/uL (3.50-5.40) Hemoglobin 10.6 g/dL (12.0-15.5) Hematocrit 34.4 % (36.0-47.0) Mean Corpuscular Volume 84 fL (79-100) Mean Corpuscular Hemoglobin 26 pg (25-35) Mean Corpuscular Hemoglobin Concent 31 g/dL (31-37) Red Cell Distribution Width 17.1 % (11.5-14.5) Platelet Count 447 x10^3/uL (140-400) Neutrophils (%) (Auto) 86 % (31-73) Lymphocytes (%) (Auto) 4 % (24-48) Monocytes (%) (Auto) 9 % (0-9) Eosinophils (%) (Auto) 0 % (0-3) Basophils (%) (Auto) 0 % (0-3) Neutrophils # (Auto) 25.1 x10^3uL (1.8-7.7) Lymphocytes # (Auto) 1.2 x10^3/uL (1.0-4.8) Monocytes # (Auto) 2.7 x10^3/uL (0.0-1.1) Eosinophils # (Auto) 0.0 x10^3/uL (0.0-0.7) Basophils # (Auto) 0.1 x10^3/uL (0.0-0.2) Sodium Level 144 mmol/L (136-145) Potassium Level 4.2 mmol/L (3.5-5.1) Chloride Level 104 mmol/L (98-107) Carbon Dioxide Level 32 mmol/L (21-32) Anion Gap 8 (6-14) Blood Urea Nitrogen 19 mg/dL (7-20) Creatinine 0.8 mg/dL (0.6-1.0) Estimated GFR (Cockcroft-Gault) 71.8 Glucose Level 105 mg/dL (70-99) Calcium Level 9.4 mg/dL (8.5-10.1) Magnesium Level 2.5 mg/dL (1.8-2.4) Test 08/20/18 06:02 08/20/18 07:34 Urine Collection Type Unknown Urine Color Yellow Urine Clarity Clear Urine pH 6.0 Urine Specific [place]ams 1.020 Urine Protein Negative mg/dL (NEG-TRACE) Urine Glucose (UA) Negative mg/dL (NEG) Urine Ketones (Stick) Negative mg/dL (NEG) Urine Blood Negative (NEG) Urine Nitrite Negative (NEG) Urine Bilirubin Negative (NEG) Urine Urobilinogen Dipstick 0.2 mg/dL (0.2 mg/dL) Urine Leukocyte Esterase Negative (NEG) Urine RBC 0 /HPF (0-2) Urine WBC 1-4 /HPF (0-4) Urine Squamous Epithelial Cells Few /LPF Urine Bacteria 0 /HPF (0-FEW) Urine Mucus Slight /LPF Glucose (Fingerstick) 92 mg/dL (70-99) Micro neg so far Objective: Assessment: 1. Acute on chronic respiratory failure, likely exacerbation of chronic obstructive pulmonary disease, on chronic home O2 by nasal cannula 3 liters. 2. Acute bronchitis. 3. Diabetes mellitus. 4. Gastroesophageal reflux disease. 5. History of asthma. 6. Bipolar disorder. 7. Fibromyalgia. 8. Gastroparesis. 9. Osteoporosis. 10. Degenerative joint disease. 11. History of left third finger methicillin-resistant Staphylococcus aureus skin infection, resolved. 12. Leukocytosis, could be from steroids. 13.Multiple drug allergies tolerates z celestine cephalosporins Plan: Plan of Care cont empiric Z celestine cont inhalers pulm team following f/u cults and labs in am cont supportive care D/W JOSE MCMAHAN MD Aug 20, 2018 11:16
[2018-08-20] MEDS: ENOXAPARIN 40 MG/0.4 ML SYRINGE. SQ SCH (11:39)
[2018-08-20] MEDS: CYCLOBENZAPRINE 10 MG TABLET. PO PRN ×2 (11:40→23:04)
[2018-08-20] MEDS: ALPRAZolam 0.5 MG TABLET PO PRN ×2 (11:40→23:04)
[2018-08-20] MEDS ORDERED: AZITHROMYCIN 250 MG TABLET. PO ONE (12:30)
--- NOTE | 2018-08-20 13:43 | NUR ---
SW following pt. PT/OT pending. SW will await for PT/OT recommendation to evaluate dc needs.
[2018-08-20 15:00] VITALS: BP 118/82
[2018-08-20] MEDS ORDERED: CONTRAST GIVEN. MC PRN (17:00)
[2018-08-20] MEDS ORDERED: IOHEXOL 300 MG/ML 100ML VIAL. IV ONE (17:00)
[2018-08-20 19:00] VITALS: BP 147/87
[2018-08-20] MEDS: MONTELUKAST SODIUM 10 MG TABLET. PO SCH (20:47)
[2018-08-20 23:00] VITALS: BP 174/93
--- NOTE | 2018-08-20 23:01 | CONS ---
DATE OF CONSULTATION: 08/19/2018 ATTENDING PHYSICIAN: Dr. Yony Samuel. REASON FOR CONSULTATION: The patient seen in pulmonary consultation at the request of Dr. Samuel for hypoxemia, increasing shortness of air. HISTORY OF PRESENT ILLNESS: The patient is a 68-year-old well known to me from previous hospitalization, outpatient visits. She has underlying chronic obstructive pulmonary disease with an asthma component. She has had multiple admissions for acute exacerbation. In the past, she has had recurrent infections. At one point, she was placed on Zithromax for anti-inflammatory properties. She presented because she was more short of breath. She called Dr. Samuel's office, failed outpatient treatment. She was admitted. She normally wears oxygen at home. She had an x-ray, which was reviewed by me. There is no acute infiltrates. She had some subjective fever, cough productive of discolored sputum. She was unable to tolerate activities of daily living at home. She also noticed some O2 saturations were low at home. PAST MEDICAL HISTORY: 1. Chronic respiratory failure, COPD with an asthma component, recurrent infections. She has had bronchoscopies in the past. 2. Depression. 3. Type 2 diabetes. 4. Fibromyalgia. 5. Bronchiectasis. 6. Gastroparesis. 7. Anxiety, bipolar disorder, depression. 8. Chronic kidney disease. 9. Osteoporosis. PAST SURGICAL HISTORY: She has had breast biopsy, which was negative. She is status post cholecystectomy, total hip replacement, total knee replacement, tubal ligation, tonsillectomy. FAMILY HISTORY: Positive for coronary artery disease. SOCIAL HISTORY: She is currently not smoking. ALLERGIES: SHE HAS MULTIPLE ALLERGIES, please see the list. MEDICATIONS: List was reviewed. REVIEW OF SYSTEMS: CONSTITUTIONAL: Subjective fever. EYES: No change in visual acuity. HEENT: Some nasal congestion and no sore throat. PULMONARY: As indicated above. CARDIOVASCULAR: No chest pain. No pressure. GASTROINTESTINAL: No nausea, vomiting, diarrhea. GENITOURINARY: No dysuria or frequency. MUSCULOSKELETAL: No localized muscle aches or joint pain. SKIN: No new skin rashes. NEUROLOGIC: No headaches, diplopia or blurred vision. CURRENT MEDICATION: List was reviewed. PHYSICAL EXAMINATION: VITAL SIGNS: The patient was on 2 L of oxygen supplementation, saturation greater than 92%. She was in no significant respiratory distress. HEENT: Eyes, the sclerae were nonicteric. NECK: Jugular venous distention was not elevated. No lymphadenopathy. CHEST: Full expansion. LUNGS: Poor airway flow with expiratory wheeze, scattered rhonchi. CARDIOVASCULAR: Regular rate and rhythm with S1, S2, no S3. ABDOMEN: Soft, nontender, nondistended. EXTREMITIES: No clubbing, cyanosis, no edema. NEUROLOGIC: The patient was awake, alert, following commands. A detailed neuro exam was not performed. LABORATORY DATA: White count was elevated. Hemoglobin and hematocrit were noted. Serology for influenza was negative. Her nasal MRSA screen was positive. Chest x-ray was reviewed. I did not appreciate any acute infiltrates. IMPRESSION: 1. [id number] respiratory failure. 2. Acute exacerbation of chronic obstructive pulmonary disease. 3. Acute nonspecific bronchitis. 4. History of asthma. 5. Bipolar disorder/depression. 6. Fibromyalgia. 7. Previous history of left finger methicillin-resistant Staphylococcus aureus infection, which has resolved. PLAN: 1. We will continue current support with oxygen supplementation. 2. Steroids. 3. CPAP. 4. Follow ID recommendation. 5. We will review old records. The patient has had a previous pulmonary nodule that was followed. I do appreciate the privilege in sharing in the patient's care. CRISTINO KRUGER MD DR: NIDHI/monica JOB#: [id number] / [id number]
[2018-08-21 03:00] VITALS: BP 115/58
[2018-08-21 04:16] LABS: BASO % 0 % (0-3); EOS # 0.1 x10^3/uL (0.0-0.7); EOS % 0 % (0-3); HEMATOCRIT 33.9 % (36.0-47.0); HEMOGLOBIN 10.4 g/dL (12.0-15.5); LYMPH # 2.3 x10^3/uL (1.0-4.8); LYMPH % 11 % (24-48); MEAN CORPUSCULAR HEMOGLOBIN 26 pg (25-35); MEAN CORPUSCULAR HGB CONC 31 g/dL (31-37); MEAN CORPUSCULAR VOLUME 84 fL (79-100); MONO % 9 % (0-9); NEUT # 17.8 x10^3uL (1.8-7.7); NEUT % 80 % (31-73); PLATELET COUNT 413 x10^3/uL (140-400); RED BLOOD COUNT 4.02 x10^6/uL (3.50-5.40); RED CELL DISTRIBUTION WIDTH 17.4 % (11.5-14.5); WHITE BLOOD COUNT 22.2 x10^3/uL (4.0-11.0)
[2018-08-21 04:38] LABS: CALCIUM 9.3 mg/dL (8.5-10.1); GFR 55.5; POTASSIUM 3.7 mmol/L (3.5-5.1)
[2018-08-21] MEDS: ACETAMINOPHEN 325 MG TABLET. PO SCH ×2 (05:53→12:10)
[2018-08-21 07:00] VITALS: BP 119/68
[2018-08-21] MEDS: INSULIN LISPRO 300 UNITS/3 ML INSULN.PEN. SQ SCH ×2 (07:30→11:30)
[2018-08-21] MEDS: IPRATRPIUM/ALBUTEROL 0.5/2.5MG 3 ML NEBU. NEB SCH (08:00)
[2018-08-21] MEDS: BUDESONIDE 0.5 MG/2 ML NEBU. NEB SCH (08:00)
[2018-08-21] MEDS: PANTOPRAZOLE 40 MG TABLET.DR. PO SCH (08:16)
--- NOTE | 2018-08-21 08:59 | PDOC ---
Infectious Disease Note Subjective: Subjective pt has sob, not able to bring up any sputum today has pain on the rt side of the chest,with flexeril and tylenol has some relief no f/c/n/v/d/abdo pain ROS: ROS Negative except for above. Vital Signs: Vital Signs Vital Signs Date Time Temp Pulse Resp B/P (MAP) Pulse Ox O2 Delivery O2 Flow Rate FiO2 08/21/18 07:00 98.3 96 18 119/68 (85) 98 Nasal Cannula 3.0 98.3 Physical Exam: PHYSICAL EXAM GENERAL: Alert and oriented x 3 female, pleasant, cooperative, sitting in bed, in no acute distress. HEENT: Normocephalic, atraumatic. Anicteric. No oral lesions. Edentulous. NECK: Supple. No JVD. LUNGS: Decreased breath sounds with some expiratory rhonchi. HEART: S1, S2 regular. ABDOMEN: Soft, nontender, nondistended. No rebound, no guarding. EXTREMITIES: No edema, no cyanosis, no clubbing. CENTRAL NERVOUS SYSTEM: Alert and oriented x 3. Grossly nonfocal. PSYCHIATRIC: Cooperative, appropriate mood and affect. Medications: Inpatient Meds: Current Medications Medications (Trade) Dose Ordered Sig/Sylvester Start Time Stop Time Status Last Admin Dose Admin Acetaminophen (Tylenol) 650 mg Q6HRS 08/19/18 12:00 08/21/18 05:53 650 MG Albuterol Sulfate (Ventolin Neb Soln) 2.5 mg PRN Q4HRS PRN 08/19/18 10:00 Albuterol/ Ipratropium (Duoneb) 3 ml PRN Q4HRS PRN 08/19/18 10:00 UNV Alprazolam (Xanax) 0.5 mg PRN Q6HRS PRN 08/19/18 09:45 08/20/18 23:04 0.5 MG Azithromycin (Zithromax) 250 mg Q24H 08/21/18 12:00 08/23/18 12:01 Budesonide (Pulmicort) 0.5 mg RTBID 08/19/18 10:30 08/21/18 08:00 0.5 MG Cyclobenzaprine HCl (Flexeril) 10 mg TID PRN 08/20/18 11:30 08/20/18 23:04 10 MG Dexamethasone Sodium Phosphate (Decadron) 10 mg 1X ONCE 08/19/18 05:00 08/19/18 05:01 DC 08/19/18 05:41 10 MG Dextrose (Dextrose 50%-Water Syringe) 12.5 gm PRN Q15MIN PRN 08/19/18 04:45 Diclofenac Sodium (Voltaren) 1 raimundo QID 08/19/18 13:00 08/20/18 20:47 1 RAIMUNDO Docusate Sodium (Colace) 100 mg PRN BID PRN 08/19/18 09:45 08/20/18 08:01 100 MG Enoxaparin Sodium (Lovenox 40mg Syringe) 40 mg Q24H 08/20/18 11:00 08/20/18 11:39 40 MG Fluticasone Propionate (Flonase) 2 spray DAILY 08/19/18 10:30 08/19/18 10:30 DC Furosemide (Lasix) 40 mg DAILY 08/19/18 10:30 08/20/18 08:00 40 MG Guaifenesin (Mucinex) 1,200 mg PRN BID PRN 08/19/18 21:00 08/20/18 08:01 1,200 MG Info (CONTRAST GIVEN -- Rx MONITORING) 1 each PRN DAILY PRN 08/20/18 17:00 08/22/18 16:59 Insulin Human Lispro (HumaLOG) 0-10 UNITS TIDBFRMEAL 08/19/18 11:30 08/20/18 11:45 3 UNITS Iohexol (Omnipaque 300 Mg/ml) 75 ml 1X ONCE 08/20/18 17:00 08/20/18 17:01 DC Lorazepam (Ativan) 0.5 mg 1X ONCE 08/19/18 05:00 08/19/18 05:01 DC 08/19/18 05:43 0.5 MG Losartan Potassium (Cozaar) 100 mg DAILY 08/19/18 10:30 Montelukast Sodium (Singulair) 10 mg QHS 08/19/18 21:00 08/20/18 20:47 10 MG Nystatin (Nystop) 1 raimundo BID 08/19/18 11:00 08/20/18 20:47 1 RAIMUNDO Ondansetron HCl (Zofran) 4 mg PRN Q8HRS PRN 08/19/18 04:45 3/7/19 04:44 DC Pantoprazole Sodium (Protonix) 40 mg DAILYAC 08/19/18 10:30 08/21/18 08:16 40 MG Potassium Chloride (Klor-Con) 20 meq DAILY 08/19/18 10:30 08/20/18 08:02 20 MEQ Prednisone (Prednisone) 40 mg DAILY 08/19/18 11:00 08/20/18 08:00 40 MG Sodium Chloride (Saline Mist Nasal) 1 raimundo PRN Q1HR PRN 08/19/18 10:00 Labs: Lab Laboratory Tests Test 08/20/18 11:41 08/20/18 16:21 08/20/18 20:10 08/21/18 03:30 Glucose (Fingerstick) 176 mg/dL (70-99) 139 mg/dL (70-99) 113 mg/dL (70-99) White Blood Count 22.2 x10^3/uL (4.0-11.0) Red Blood Count 4.02 x10^6/uL (3.50-5.40) Hemoglobin 10.4 g/dL (12.0-15.5) Hematocrit 33.9 % (36.0-47.0) Mean Corpuscular Volume 84 fL (79-100) Mean Corpuscular Hemoglobin 26 pg (25-35) Mean Corpuscular Hemoglobin Concent 31 g/dL (31-37) Red Cell Distribution Width 17.4 % (11.5-14.5) Platelet Count 413 x10^3/uL (140-400) Neutrophils (%) (Auto) 80 % (31-73) Lymphocytes (%) (Auto) 11 % (24-48) Monocytes (%) (Auto) 9 % (0-9) Eosinophils (%) (Auto) 0 % (0-3) Basophils (%) (Auto) 0 % (0-3) Neutrophils # (Auto) 17.8 x10^3uL (1.8-7.7) Lymphocytes # (Auto) 2.3 x10^3/uL (1.0-4.8) Monocytes # (Auto) 2.0 x10^3/uL (0.0-1.1) Eosinophils # (Auto) 0.1 x10^3/uL (0.0-0.7) Basophils # (Auto) 0.0 x10^3/uL (0.0-0.2) Sodium Level 144 mmol/L (136-145) Potassium Level 3.7 mmol/L (3.5-5.1) Chloride Level 104 mmol/L (98-107) Carbon Dioxide Level 34 mmol/L (21-32) Anion Gap 6 (6-14) Blood Urea Nitrogen 19 mg/dL (7-20) Creatinine 1.0 mg/dL (0.6-1.0) Estimated GFR (Cockcroft-Gault) 55.5 Glucose Level 92 mg/dL (70-99) Calcium Level 9.3 mg/dL (8.5-10.1) Test 08/21/18 07:14 Glucose (Fingerstick) 78 mg/dL (70-99) Micro neg so far Objective: Assessment: 1. Acute on chronic respiratory failure, likely exacerbation of chronic obstructive pulmonary disease, on chronic home O2 by nasal cannula 3 liters. 2. Acute bronchitis. 3. Diabetes mellitus. 4. Gastroesophageal reflux disease. 5. History of asthma. 6. Bipolar disorder. 7. Fibromyalgia. 8. Gastroparesis. 9. Osteoporosis. 10. Degenerative joint disease. 11. History of left third finger methicillin-resistant Staphylococcus aureus skin infection, resolved. 12. Leukocytosis, could be from steroids. 13.Multiple drug allergies tolerates z celestine cephalosporins Plan: Plan of Care cont empiric Z celestine cont inhalers F/U CT Chest f/u cults and labs in am cont supportive care D/W JOSE MCMAHAN MD Aug 21, 2018 08:59
[2018-08-21] MEDS: predniSONE 20 MG TABLET PO SCH (10:14)
[2018-08-21] MEDS: POTASSIUM CHLORIDE 20 MEQ TABLET.ER. PO SCH (10:14)
[2018-08-21] MEDS: FUROSEMIDE 40 MG TABLET. PO SCH (10:14)
[2018-08-21] MEDS: LOSARTAN POTASSIUM 50 MG TABLET. PO SCH (10:16)
[2018-08-21] MEDS: NYSTATIN TOPICAL POWDER 15GM BOTTLE. TP SCH (10:16)
[2018-08-21] MEDS: DICLOFENAC SODIUM 1% TOPICAL GEL 100GM TUBE. TP SCH ×2 (10:17→12:53)
--- NOTE | 2018-08-21 10:22 | PDOC ---
PULMONARY PROGRESS NOTES Subjective Patient states she is still SOA, has some back pain, severe coughing spells Vitals Vital Signs Date Time Temp Pulse Resp B/P (MAP) Pulse Ox O2 Delivery O2 Flow Rate FiO2 08/21/18 10:16 96 119/68 08/21/18 08:15 Nasal Cannula 3.0 08/21/18 08:00 98 08/21/18 07:00 98.3 18 98.3 General: Alert, Oriented X4 HEENT: Other Lungs: Clear, Wheezing Cardiovascular: S1, S2 Abdomen: Soft, Non-tender Extremities: No Edema Labs Laboratory Tests Test 08/19/18 10:45 08/19/18 10:56 08/19/18 16:45 08/19/18 20:11 Troponin I Quantitative < 0.017 ng/mL (0.000-0.055) Glucose (Fingerstick) 148 mg/dL (70-99) 210 mg/dL (70-99) 119 mg/dL (70-99) Test 08/20/18 03:00 08/20/18 03:30 08/20/18 06:02 08/20/18 07:34 White Blood Count 29.1 x10^3/uL (4.0-11.0) Red Blood Count 4.11 x10^6/uL (3.50-5.40) Hemoglobin 10.6 g/dL (12.0-15.5) Hematocrit 34.4 % (36.0-47.0) Mean Corpuscular Volume 84 fL (79-100) Mean Corpuscular Hemoglobin 26 pg (25-35) Mean Corpuscular Hemoglobin Concent 31 g/dL (31-37) Red Cell Distribution Width 17.1 % (11.5-14.5) Platelet Count 447 x10^3/uL (140-400) Neutrophils (%) (Auto) 86 % (31-73) Lymphocytes (%) (Auto) 4 % (24-48) Monocytes (%) (Auto) 9 % (0-9) Eosinophils (%) (Auto) 0 % (0-3) Basophils (%) (Auto) 0 % (0-3) Neutrophils # (Auto) 25.1 x10^3uL (1.8-7.7) Lymphocytes # (Auto) 1.2 x10^3/uL (1.0-4.8) Monocytes # (Auto) 2.7 x10^3/uL (0.0-1.1) Eosinophils # (Auto) 0.0 x10^3/uL (0.0-0.7) Basophils # (Auto) 0.1 x10^3/uL (0.0-0.2) Sodium Level 144 mmol/L (136-145) Potassium Level 4.2 mmol/L (3.5-5.1) Chloride Level 104 mmol/L (98-107) Carbon Dioxide Level 32 mmol/L (21-32) Anion Gap 8 (6-14) Blood Urea Nitrogen 19 mg/dL (7-20) Creatinine 0.8 mg/dL (0.6-1.0) Estimated GFR (Cockcroft-Gault) 71.8 Glucose Level 105 mg/dL (70-99) Calcium Level 9.4 mg/dL (8.5-10.1) Magnesium Level 2.5 mg/dL (1.8-2.4) Urine Collection Type Unknown Urine Color Yellow Urine Clarity Clear Urine pH 6.0 Urine Specific Norris 1.020 Urine Protein Negative mg/dL (NEG-TRACE) Urine Glucose (UA) Negative mg/dL (NEG) Urine Ketones (Stick) Negative mg/dL (NEG) Urine Blood Negative (NEG) Urine Nitrite Negative (NEG) Urine Bilirubin Negative (NEG) Urine Urobilinogen Dipstick 0.2 mg/dL (0.2 mg/dL) Urine Leukocyte Esterase Negative (NEG) Urine RBC 0 /HPF (0-2) Urine WBC 1-4 /HPF (0-4) Urine Squamous Epithelial Cells Few /LPF Urine Bacteria 0 /HPF (0-FEW) Urine Mucus Slight /LPF Glucose (Fingerstick) 92 mg/dL (70-99) Test 08/20/18 11:41 08/20/18 16:21 08/20/18 20:10 08/21/18 03:30 Glucose (Fingerstick) 176 mg/dL (70-99) 139 mg/dL (70-99) 113 mg/dL (70-99) White Blood Count 22.2 x10^3/uL (4.0-11.0) Red Blood Count 4.02 x10^6/uL (3.50-5.40) Hemoglobin 10.4 g/dL (12.0-15.5) Hematocrit 33.9 % (36.0-47.0) Mean Corpuscular Volume 84 fL (79-100) Mean Corpuscular Hemoglobin 26 pg (25-35) Mean Corpuscular Hemoglobin Concent 31 g/dL (31-37) Red Cell Distribution Width 17.4 % (11.5-14.5) Platelet Count 413 x10^3/uL (140-400) Neutrophils (%) (Auto) 80 % (31-73) Lymphocytes (%) (Auto) 11 % (24-48) Monocytes (%) (Auto) 9 % (0-9) Eosinophils (%) (Auto) 0 % (0-3) Basophils (%) (Auto) 0 % (0-3) Neutrophils # (Auto) 17.8 x10^3uL (1.8-7.7) Lymphocytes # (Auto) 2.3 x10^3/uL (1.0-4.8) Monocytes # (Auto) 2.0 x10^3/uL (0.0-1.1) Eosinophils # (Auto) 0.1 x10^3/uL (0.0-0.7) Basophils # (Auto) 0.0 x10^3/uL (0.0-0.2) Sodium Level 144 mmol/L (136-145) Potassium Level 3.7 mmol/L (3.5-5.1) Chloride Level 104 mmol/L (98-107) Carbon Dioxide Level 34 mmol/L (21-32) Anion Gap 6 (6-14) Blood Urea Nitrogen 19 mg/dL (7-20) Creatinine 1.0 mg/dL (0.6-1.0) Estimated GFR (Cockcroft-Gault) 55.5 Glucose Level 92 mg/dL (70-99) Calcium Level 9.3 mg/dL (8.5-10.1) Test 08/21/18 07:14 Glucose (Fingerstick) 78 mg/dL (70-99) Laboratory Tests Test 08/20/18 11:41 08/20/18 16:21 08/20/18 20:10 08/21/18 03:30 Glucose (Fingerstick) 176 mg/dL (70-99) 139 mg/dL (70-99) 113 mg/dL (70-99) White Blood Count 22.2 x10^3/uL (4.0-11.0) Red Blood Count 4.02 x10^6/uL (3.50-5.40) Hemoglobin 10.4 g/dL (12.0-15.5) Hematocrit 33.9 % (36.0-47.0) Mean Corpuscular Volume 84 fL (79-100) Mean Corpuscular Hemoglobin 26 pg (25-35) Mean Corpuscular Hemoglobin Concent 31 g/dL (31-37) Red Cell Distribution Width 17.4 % (11.5-14.5) Platelet Count 413 x10^3/uL (140-400) Neutrophils (%) (Auto) 80 % (31-73) Lymphocytes (%) (Auto) 11 % (24-48) Monocytes (%) (Auto) 9 % (0-9) Eosinophils (%) (Auto) 0 % (0-3) Basophils (%) (Auto) 0 % (0-3) Neutrophils # (Auto) 17.8 x10^3uL (1.8-7.7) Lymphocytes # (Auto) 2.3 x10^3/uL (1.0-4.8) Monocytes # (Auto) 2.0 x10^3/uL (0.0-1.1) Eosinophils # (Auto) 0.1 x10^3/uL (0.0-0.7) Basophils # (Auto) 0.0 x10^3/uL (0.0-0.2) Sodium Level 144 mmol/L (136-145) Potassium Level 3.7 mmol/L (3.5-5.1) Chloride Level 104 mmol/L (98-107) Carbon Dioxide Level 34 mmol/L (21-32) Anion Gap 6 (6-14) Blood Urea Nitrogen 19 mg/dL (7-20) Creatinine 1.0 mg/dL (0.6-1.0) Estimated GFR (Cockcroft-Gault) 55.5 Glucose Level 92 mg/dL (70-99) Calcium Level 9.3 mg/dL (8.5-10.1) Test 08/21/18 07:14 Glucose (Fingerstick) 78 mg/dL (70-99) Medications Active Scripts Medications Dose Route/Sig Max Daily Dose Days Date Category Zyvox (Linezolid) 600 Mg Tablet 600 Mg PO BID 14 06/20/18 Rx Losartan Potassium 100 Mg Tablet 100 Mg PO DAILY 06/15/18 Reported Tylenol (Acetaminophen) 325 Mg Tablet 650 Mg PO Q6HRS 06/15/18 Reported Prilosec Otc (Omeprazole Magnesium) 20 Mg Tablet.dr 40 Mg PO DAILY 06/15/18 Reported Nystatin 15 Gm Cream..g. 1 Latanya TP PRN BID PRN 06/15/18 Reported Prednisone (Prednisone) 10 Mg Tablet 10 Mg PO DAILY 06/15/18 Reported Nystatin 100,000 Unit/1 Ml Oral.susp 5 Ml PO QID 06/15/18 Reported Nystatin 15 Gm Powder 1 Latanya TP BID 02/28/18 Reported Budesonide 0.5 Mg/2 Ml Ampul.neb 0.5 Mg IH BID 04/24/17 Reported Duoneb 0.5-3(2.5) Mg/3 Ml (Albuterol/Ipratropium) 3 Ml Ampul.neb 3 Ml NEB QID 03/14/17 Reported Ventolin Hfa Inhaler (Albuterol Sulfate) 18 Gm Hfa.aer.ad 2 Puff INH Q4HRS 03/13/17 Reported Mucinex (Guaifenesin) 1,200 Mg Tbmp.12hr 1,200 Mg PO PRN BID PRN 03/13/17 Reported Xanax (Alprazolam) 0.5 Mg Tablet 0.5 Mg PO PRN Q6HRS PRN 01/24/15 Rx Voltaren (Diclofenac Sodium) 100 Gm Gel..gram. 1 Gm TP QID 02/02/14 Reported Singulair Tablet (Montelukast Sodium) 10 Mg Tablet 1 Tab PO DAILY 02/02/14 Reported Deep Sea (Sodium Chloride) 44 Ml [place] 2 [place] NS Q4HRS 02/02/14 Reported Colace (Docusate Sodium) 100 Mg Capsule 1 Cap PO BID PRN 02/02/14 Reported Flonase (Fluticasone Propionate) 16 Gm [place].susp 2 [place] NS DAILY 02/02/14 Reported Clotrimazole-Betamethasone Crm (Clotrimazole/Betamethasone Dip) 15 Gm Cream..g. 1 Latanya TP PRN PRN 02/02/14 Reported Cyclobenzaprine Hcl 10 Mg Tablet 1 Tab PO TID PRN 02/02/14 Reported Lasix (Furosemide) 40 Mg Tablet 1 Tab PO DAILY 02/02/14 Reported Potassium Chloride 20 Meq Tab.er.prt 20 Meq PO DAILY 02/02/14 Reported Impression . PULMONARY NODULE AECOPD PLEURISY A/C RESP FAILURE H/O MRSA Plan . Reviewed office records, will obtain CT chest to follow up new 1cm nodule continue current support CRISTINO KRUGER MD Aug 21, 2018 10:22
--- NOTE | 2018-08-21 10:50 | NUR ---
SW following pt. Pt was evaluated by PT/OT and does not have skilled needs. No SW needs noted at this time. Will continue to assess dc needs.
[2018-08-21] MEDS ORDERED: AZIT250T6 PO (10:55)
--- NOTE | 2018-08-21 10:58 | DISCH ---
DISCHARGE INSTRUCTIONS Condition on Discharge Condition on Discharge: Stable Activity After Discharge Activity Instructions for Disc: Activity as tolerated (use walker as needed.) Exercise Instruction after Dis: Progress as tolerated Weight Bearing Status after Di: Full weight bearing Diet after Discharge Diet after Discharge: Cardiac (ADA) Additional Diet Restrictions: no added sugar Diet Texture: Regular Swallowing Supervision: None needed Checks after Discharge Checks after discharge: Check blood press - daily, Check blood sugar, ac/hs Contacting the DR. after DC Call your doctor for: Concerns you may have Follow-Up Follow up with: Dr. YIMI Carnes in 4 days Follow Up With: Dr. Nunez Treatment/Equipment after DC Adaptive Equipment Issued: None, Walker Discharge Respiratory Equipmen: Oxygen (3 L/m continuous), Nebulizer YIMI CARNES MD Aug 21, 2018 10:58
[2018-08-21 11:00] VITALS: BP 141/74
--- NOTE | 2018-08-21 11:06 | PDOC3 ---
IM DISCHARGE SUMMARY Date of Admission Date of Admission Date of Admission: Aug 19, 2018 at 04:42 Date of Discharge Date of Discharge August 21, 2018 Primary Diagnosis Primary Diagnosis 1. [id number] respiratory failure with exacerbation of chronic obstructive pulmonary disease and asthma, on oxygen by nasal cannula 3 liters per minute. 2. Acute bronchitis. 3. Chronic obstructive pulmonary disease with exacerbation. 4. Diabetes mellitus type 2. 5. Gastroesophageal reflux disease. 6. Hyperlipidemia. 7. Bipolar 1 disorder. 8. Fibromyalgia. 9. Gastroparesis. 10. Hiatal hernia. 11. Osteoporosis. 12. Allergic rhinitis. 13. Degenerative disk disease of the lumbosacral spine. 14. Osteoarthritis. 15. Depression. 16. Anemia of chronic disease. 17. Lung nodule Consults Consults Pablo Sims MD, Dr. Nunez Labs Labs Laboratory Tests Test 08/19/18 05:18 08/19/18 05:38 08/19/18 06:30 08/19/18 07:45 White Blood Count 24.4 x10^3/uL (4.0-11.0) Red Blood Count 4.58 x10^6/uL (3.50-5.40) Hemoglobin 12.0 g/dL (12.0-15.5) Hematocrit 37.8 % (36.0-47.0) Mean Corpuscular Volume 83 fL (79-100) Mean Corpuscular Hemoglobin 26 pg (25-35) Mean Corpuscular Hemoglobin Concent 32 g/dL (31-37) Red Cell Distribution Width 17.0 % (11.5-14.5) Platelet Count 455 x10^3/uL (140-400) Neutrophils (%) (Auto) 86 % (31-73) Lymphocytes (%) (Auto) 7 % (24-48) Monocytes (%) (Auto) 6 % (0-9) Eosinophils (%) (Auto) 0 % (0-3) Basophils (%) (Auto) 1 % (0-3) Neutrophils # (Auto) 20.9 x10^3uL (1.8-7.7) Lymphocytes # (Auto) 1.8 x10^3/uL (1.0-4.8) Monocytes # (Auto) 1.5 x10^3/uL (0.0-1.1) Eosinophils # (Auto) 0.0 x10^3/uL (0.0-0.7) Basophils # (Auto) 0.1 x10^3/uL (0.0-0.2) Segmented Neutrophils % 81 % (35-66) Band Neutrophils % 4 % (0-9) Lymphocytes % 7 % (24-48) Monocytes % 7 % (0-10) Basophils % 1 % (0-3) Platelet Estimate Increased (ADEQUATE) Large Platelets Present Sodium Level 143 mmol/L (136-145) Potassium Level 3.6 mmol/L (3.5-5.1) Chloride Level 100 mmol/L (98-107) Carbon Dioxide Level 32 mmol/L (21-32) Anion Gap 11 (6-14) Blood Urea Nitrogen 14 mg/dL (7-20) Creatinine 0.9 mg/dL (0.6-1.0) Estimated GFR (Cockcroft-Gault) 62.6 BUN/Creatinine Ratio 16 (6-20) Glucose Level 105 mg/dL (70-99) Lactic Acid Level 1.4 mmol/L (0.4-2.0) Calcium Level 10.0 mg/dL (8.5-10.1) Magnesium Level 1.9 mg/dL (1.8-2.4) Total Bilirubin 0.7 mg/dL (0.2-1.0) Aspartate Amino Transf (AST/SGOT) 18 U/L (15-37) Alanine Aminotransferase (ALT/SGPT) 33 U/L (14-59) Alkaline Phosphatase 70 U/L (46-116) Creatine Kinase 77 U/L (26-192) Creatine Kinase MB (Mass) 1.4 ng/mL (0.0-3.6) Creatine Kinase MB Relative Index 1.8 % (0-4) Troponin I Quantitative < 0.017 ng/mL (0.000-0.055) < 0.017 ng/mL (0.000-0.055) TF-Qhf-H-Type Natriuretic Peptide 196 pg/mL (0-124) Total Protein 7.3 g/dL (6.4-8.2) Albumin 3.7 g/dL (3.4-5.0) Albumin/Globulin Ratio 1.0 (1.0-1.7) Influenza Type A Antigen Negative (NEGATIVE) Influenza Type B Antigen Negative (NEGATIVE) Nasal Screen MRSA (PCR) Positive (Negative) Test 08/19/18 09:27 08/19/18 10:45 08/19/18 10:56 08/19/18 16:45 Glucose (Fingerstick) 197 mg/dL (70-99) 148 mg/dL (70-99) 210 mg/dL (70-99) Troponin I Quantitative < 0.017 ng/mL (0.000-0.055) Test 08/19/18 20:11 08/20/18 03:00 08/20/18 03:30 08/20/18 06:02 Glucose (Fingerstick) 119 mg/dL (70-99) White Blood Count 29.1 x10^3/uL (4.0-11.0) Red Blood Count 4.11 x10^6/uL (3.50-5.40) Hemoglobin 10.6 g/dL (12.0-15.5) Hematocrit 34.4 % (36.0-47.0) Mean Corpuscular Volume 84 fL (79-100) Mean Corpuscular Hemoglobin 26 pg (25-35) Mean Corpuscular Hemoglobin Concent 31 g/dL (31-37) Red Cell Distribution Width 17.1 % (11.5-14.5) Platelet Count 447 x10^3/uL (140-400) Neutrophils (%) (Auto) 86 % (31-73) Lymphocytes (%) (Auto) 4 % (24-48) Monocytes (%) (Auto) 9 % (0-9) Eosinophils (%) (Auto) 0 % (0-3) Basophils (%) (Auto) 0 % (0-3) Neutrophils # (Auto) 25.1 x10^3uL (1.8-7.7) Lymphocytes # (Auto) 1.2 x10^3/uL (1.0-4.8) Monocytes # (Auto) 2.7 x10^3/uL (0.0-1.1) Eosinophils # (Auto) 0.0 x10^3/uL (0.0-0.7) Basophils # (Auto) 0.1 x10^3/uL (0.0-0.2) Sodium Level 144 mmol/L (136-145) Potassium Level 4.2 mmol/L (3.5-5.1) Chloride Level 104 mmol/L (98-107) Carbon Dioxide Level 32 mmol/L (21-32) Anion Gap 8 (6-14) Blood Urea Nitrogen 19 mg/dL (7-20) Creatinine 0.8 mg/dL (0.6-1.0) Estimated GFR (Cockcroft-Gault) 71.8 Glucose Level 105 mg/dL (70-99) Calcium Level 9.4 mg/dL (8.5-10.1) Magnesium Level 2.5 mg/dL (1.8-2.4) Urine Collection Type Unknown Urine Color Yellow Urine Clarity Clear Urine pH 6.0 Urine Specific [place] 1.020 Urine Protein Negative mg/dL (NEG-TRACE) Urine Glucose (UA) Negative mg/dL (NEG) Urine Ketones (Stick) Negative mg/dL (NEG) Urine Blood Negative (NEG) Urine Nitrite Negative (NEG) Urine Bilirubin Negative (NEG) Urine Urobilinogen Dipstick 0.2 mg/dL (0.2 mg/dL) Urine Leukocyte Esterase Negative (NEG) Urine RBC 0 /HPF (0-2) Urine WBC 1-4 /HPF (0-4) Urine Squamous Epithelial Cells Few /LPF Urine Bacteria 0 /HPF (0-FEW) Urine Mucus Slight /LPF Test 08/20/18 07:34 08/20/18 11:41 08/20/18 16:21 08/20/18 20:10 Glucose (Fingerstick) 92 mg/dL (70-99) 176 mg/dL (70-99) 139 mg/dL (70-99) 113 mg/dL (70-99) Test 08/21/18 03:30 08/21/18 07:14 White Blood Count 22.2 x10^3/uL (4.0-11.0) Red Blood Count 4.02 x10^6/uL (3.50-5.40) Hemoglobin 10.4 g/dL (12.0-15.5) Hematocrit 33.9 % (36.0-47.0) Mean Corpuscular Volume 84 fL (79-100) Mean Corpuscular Hemoglobin 26 pg (25-35) Mean Corpuscular Hemoglobin Concent 31 g/dL (31-37) Red Cell Distribution Width 17.4 % (11.5-14.5) Platelet Count 413 x10^3/uL (140-400) Neutrophils (%) (Auto) 80 % (31-73) Lymphocytes (%) (Auto) 11 % (24-48) Monocytes (%) (Auto) 9 % (0-9) Eosinophils (%) (Auto) 0 % (0-3) Basophils (%) (Auto) 0 % (0-3) Neutrophils # (Auto) 17.8 x10^3uL (1.8-7.7) Lymphocytes # (Auto) 2.3 x10^3/uL (1.0-4.8) Monocytes # (Auto) 2.0 x10^3/uL (0.0-1.1) Eosinophils # (Auto) 0.1 x10^3/uL (0.0-0.7) Basophils # (Auto) 0.0 x10^3/uL (0.0-0.2) Sodium Level 144 mmol/L (136-145) Potassium Level 3.7 mmol/L (3.5-5.1) Chloride Level 104 mmol/L (98-107) Carbon Dioxide Level 34 mmol/L (21-32) Anion Gap 6 (6-14) Blood Urea Nitrogen 19 mg/dL (7-20) Creatinine 1.0 mg/dL (0.6-1.0) Estimated GFR (Cockcroft-Gault) 55.5 Glucose Level 92 mg/dL (70-99) Calcium Level 9.3 mg/dL (8.5-10.1) Glucose (Fingerstick) 78 mg/dL (70-99) Brief hospital course Brief hospital course This 68-year-old female started having cough, congestion and significant nasal drainage about a week ago. She started getting worse. She tried more breathing treatments and prednisone, but did not get any better. Yesterday, she took 60 mg of prednisone. I had asked her to come to the office yesterday, but she felt that she was very ill and could not come and early this morning, came to the Emergency Room because of worsening dyspnea, cough and congestion. The patient is known to have chronic respiratory failure with severe COPD, on oxygen by nasal cannula at home. In the Emergency Room, the patient was examined. Chest x-ray was negative. Flu screen was negative, but because of her worsening condition, the patient was admitted for further evaluation and management. For more details regarding the past history, family history, social history, surgical history and other details, please refer to History and Physical. The patient has multiple allergies to antibiotics. I will consult Dr. Sims for Infectious Disease evaluation and management and consult Dr. Nunez for Pulmonary evaluation and management. Continue inhalers and breathing treatments. The patient was given one dose of dexamethasone in the Emergency Room. I will order oral prednisone tomorrow. Leukocytosis may be due to steroid intake at home. I will hold Flonase nasal spray due to recent epistaxis. I will also hold Lovenox today and restart it tomorrow for deep vein thrombosis prophylaxis. For details, please review the orders. Leukocytosis- WBC count is 29.1. This may be likely due to steroids. Leukocytosis is improving. Patient was treated with prednisone 40 mg daily and a Z-Eder. Clinically patient is improving. Dr. Nunez has ordered a CT scan of chest to follow-up on a [address] report is pending at the time of this note. Her back pain is improving. Clinically improving. If patient remains stable she may be able to go home later this afternoon if okay with Dr. Nunez. Follow-up in the office in 4 days. Continue prednisone 40 mg daily for 4 days 30 g daily for 4 days then 20 mg daily for 4 days and then 10 mg daily for 4 days. Continue Zithromax 250 mg daily for 4 days. Patient has Xanax, Zithromax and prednisone at home. Medications Medications reviewed and reconciled for discharge. Allergy Allergies Coded Allergies Type Severity Reaction Last Updated Verified Penicillins Allergy Intermediate rash 06/19/18 Yes amoxicillin Allergy Intermediate asthma 12/01/17 Yes carvedilol Allergy Intermediate asthma 12/01/17 Yes cinnamon Allergy Intermediate 12/01/17 Yes clavulanic acid Allergy Intermediate asthma 12/01/17 Yes codeine Allergy Intermediate hallucinations and itching 12/01/17 Yes lemon Allergy Intermediate 06/17/18 Yes lisinopril Allergy Intermediate 01/02/18 Yes morphine Allergy Intermediate Rash 06/17/18 Yes olanzapine Allergy Intermediate asthma 12/01/17 Yes perfume Allergy Intermediate 12/01/17 Yes ropinirole Allergy Intermediate asthma 12/01/17 Yes tree nut Allergy Intermediate 12/01/17 Yes bromide salts Allergy Mild 01/02/18 Yes I S O L A T I O N *CONTACT* Allergy Unknown 06/23/18 Yes doxycycline Adverse Reaction Intermediate nausea 12/01/17 Yes zolpidem Adverse Reaction Intermediate sleep walking and eating 12/01/17 Yes Uncoded Allergies Type Severity Reaction Last Updated Verified vanilla Allergy Intermediate 02/03/14 Follow up in 4 days. DISPOSITION: Home Comments Discharge Management - 35 minutes. For other details please refer to discharge instructions YIMI CARNES MD Aug 21, 2018 11:06
[2018-08-21] MEDS: ENOXAPARIN 40 MG/0.4 ML SYRINGE. SQ SCH (11:21)
[2018-08-21] MEDS ORDERED: AZITHROMYCIN 250 MG TABLET. PO SCH (12:00)
--- NOTE | 2018-08-21 13:45 | RAD ---
CT of the chest with contrast, 08/21/2018: HISTORY: Shortness of breath, nodules Multidetector CT imaging was performed following an IV bolus injection of iodinated contrast material. Comparison is made to a study from 02/19/2018. There are ongoing patchy pulmonary opacities in the right lung. There is probably a component of scarring and traction bronchiectasis such as in the anteromedial aspect of the right upper lobe and in the right apex. There is a new 18 mm soft tissue density along the posterior aspect of the right main bronchus as seen on axial image 20 of series #2. There are worsening adjacent parahilar infiltrates. There is a cluster of 2 nodules in the medial aspect of the right lower lobe as seen on images 39 and 40 of series #2 which are new. The largest of these measures 9 mm. There are also new mild patchy opacities appear laterally in the right upper lobe. A small peripheral nodule seen in the right lateral costophrenic angle on the previous study has increased slightly in size. It currently measures approximately 1.2 cm. Scattered linear opacities in the left lung appear unchanged and are probably scars. No significant pleural fluid is evident. Several small mediastinal lymph nodes appear unchanged. No definite mediastinal adenopathy is seen. Moderate coronary artery calcifications are present. Chronic fractures with vertebroplasty change is again noted in the upper thoracic spine. IMPRESSION: 1. Chronic bilateral pleural-parenchymal scarring. 2. Worsening and new patchy and nodular right lung opacities as described above which may be on an inflammatory or neoplastic basis. These include a new focal density along the posterior aspect of the right main bronchus. 3. Coronary artery disease. PQRS Compliance Statement: One or more of the following individualized dose reduction techniques were utilized for this examination: 1. Automated exposure control 2. Adjustment of the mA and/or kV according to patient size 3. Use of iterative reconstruction technique Electronically signed by: Dayton Reynoso MD (08/21/2018 1:41 PM) [facility]
== END 2018-08-21 14:01 | disposition home or self-care (01) | DRG 189 ==
LOC: ER 04:14 → 5 NORTH 04:42
PROVIDERS: ADMIT Internal Medicine; ATTEND Internal Medicine
PROC: 5A09357 Assistance with Respiratory Ventilation, Less than 24 Consecutive Hours, Continuous Positive Airway Pressure (ICD-10-PCS; principal; 2018-08-19)
DX: J96.21 Acute and chronic respiratory failure with hypoxia (principal); J44.0 Chronic obstructive pulmonary disease with (acute) lower respiratory infection; J44.1 Chronic obstructive pulmonary disease with (acute) exacerbation; J20.9 Acute bronchitis, unspecified; K21.9 Gastro-esophageal reflux disease without esophagitis; K44.9 Diaphragmatic hernia without obstruction or gangrene; I12.9 Hypertensive chronic kidney disease with stage 1 through stage 4 chronic kidney disease, or unspecified chronic kidney disease; D63.8 Anemia in other chronic diseases classified elsewhere; E11.22 Type 2 diabetes mellitus with diabetic chronic kidney disease; E11.43 Type 2 diabetes mellitus with diabetic autonomic (poly)neuropathy; E78.5 Hyperlipidemia, unspecified; F31.9 Bipolar disorder, unspecified; G25.81 Restless legs syndrome; K31.84 Gastroparesis; M51.37 Other intervertebral disc degeneration, lumbosacral region; M79.7 Fibromyalgia; M81.0 Age-related osteoporosis without current pathological fracture; N18.9 Chronic kidney disease, unspecified; Z96.642 Presence of left artificial hip joint; F41.9 Anxiety disorder, unspecified; Z96.653 Presence of artificial knee joint, bilateral; D72.829 Elevated white blood cell count, unspecified; M19.90 Unspecified osteoarthritis, unspecified site; T38.0X5A Adverse effect of glucocorticoids and synthetic analogues, initial encounter; R91.1 Solitary pulmonary nodule; Z82.49 Family history of ischemic heart disease and other diseases of the circulatory system; Z86.14 Personal history of Methicillin resistant Staphylococcus aureus infection; Z87.891 Personal history of nicotine dependence; Z88.1 Allergy status to other antibiotic agents; Z90.49 Acquired absence of other specified parts of digestive tract; Z99.81 Dependence on supplemental oxygen; Z90.89 Acquired absence of other organs; Z98.51 Tubal ligation status; Z88.0 Allergy status to penicillin; Z88.8 Allergy status to other drugs, medicaments and biological substances; Z91.018 Allergy to other foods; Z79.899 Other long term (current) drug therapy; Y92.89 Other specified places as the place of occurrence of the external cause
CPT/HCPCS: 36415; 71045; 71260; 80048; 80053; 81001; 82553; 82962; 83605; 83735; 83880; 84484; 85007; 85025; 87641; 87804; 93005; 94640; 94660; 94760; 96374; 96375; J1100; J1650; J1815; J2060; J7512; J7620; J7626; Q0144; Q9967; 99285-25

== ENCOUNTER → 2018-11-19 | Outpatient (CLI) | payer MEDICARE ==
[~2018-11-19] MED LIST changes: +AZIT250T6 PO
--- NOTE | 2018-11-19 16:05 | KCIC ---
Clinical indications: Frontal sinusitis. Nose bleeds. Headaches. Drainage. Taking medication.. Technique: Helical scanning of the paranasal sinuses and head was performed using the [email or web address] technique. 3 multiplanar 2-D reconstructions were generated. Findings: The maxillary sinuses are clear. Small defects of the medial wall of both maxillary sinuses aren't seen which could be postoperative in nature. The infundibular canal of the ostiomeatal complex of the right maxillary sinus is not visualized and therefore may be occluded or severely narrowed. There is narrowing of the infundibular canal on the left side. The ethmoid sinuses are clear. There is mild mucosal thickening of the posterior wall of the right sphenoid sinus. Otherwise the right sphenoid sinus is clear. There is mucosal thickening of the posterior recess of the left sphenoid sinus. The sphenoethmoidal recess is clear on both sides. The frontal sinuses are clear. No air-fluid levels are evident. There is moderate mucosal thickening of the left inferior turbinate. There is mild mucosal thickening of the right inferior turbinate and middle turbinates bilaterally. There is mild mucosal thickening of both sides of the nasal septum. There is mild nasal septal deviation with the convexity pointed towards the right side.No polyps or soft tissue masses of the nasal passageway are seen. The adenoids are not abnormally thickened. No osteolytic process is seen.. Impression: There are no radiographic findings of significant sinusitis. Electronically signed by: Germain Hatfield MD (11/19/2018 4:02 PM) [id number]
== END | disposition home or self-care (01) ==
LOC: KCIC CT 13:19
PROVIDERS: ATTEND Otolaryngology
DX: J34.2 Deviated nasal septum (principal); J32.1 Chronic frontal sinusitis; J44.9 Chronic obstructive pulmonary disease, unspecified; E11.9 Type 2 diabetes mellitus without complications; F17.200 Nicotine dependence, unspecified, uncomplicated
CPT/HCPCS: 70486

== ENCOUNTER → 2019-09-09 | Outpatient (CLI) | payer MEDICARE ==
[~2019-09-09] MED LIST changes: -DILT120C85 PO; +DILT120C99 PO; -LINE600T PO; +LINE600T12 PO; -MELA3TAB2 PO; +MELA3TAB4 PO; +MONT10TA49 PO; -MONT10TA6 PO; +OMEP40CA45 PO; -OMEP40CA5 PO
--- NOTE | 2019-09-09 13:59 | KCIC ---
CT scan of the chest without contrast 09/09/2019 CLINICAL HISTORY: History of pulmonary infiltrate. TECHNIQUE: Unenhanced, contiguous, 5 mm axial sections were obtained through the chest and upper abdomen. One or more of the following individualized dose reduction techniques were utilized for this study: 1. Automated exposure control. 2. Adjustment of the mA and/or kV according to patient size. 3. Use of iterative reconstruction technique. FINDINGS: Comparison study is dated 11/05/2018. Atherosclerotic calcification of the thoracic aorta and its branches is noted. The thoracic aorta is tortuous but tapers normally. Extensive coronary artery calcifications are seen. The heart is normal in size. There is a small sliding hiatal hernia. No hilar, mediastinal or axillary lymphadenopathy is seen. Areas of pleural thickening and scarring are seen involving both upper lobes. These are unchanged. Areas of bronchiectasis are seen involving the medial aspect of both upper lobes, unchanged. Reticular and patchy opacities opacities consistent with areas of scarring are seen scattered throughout the right middle lobe and both lower lobes. These are unchanged. No acute pulmonary infiltrate is seen. No pneumothorax or pleural effusion is noted. Images through the upper abdomen. Atherosclerotic calcification of the abdominal aorta. Degenerative changes are seen involving the thoracic spine. The patient is post kyphoplasty type procedure involving the T5 and T6 vertebral bodies. IMPRESSION: Stable CT appearance of the chest as discussed above. No acute abnormality is seen. Electronically signed by: Robert Panchal MD (09/09/2019 1:56 PM) [place] [id number]
== END | disposition home or self-care (01) ==
LOC: KCIC CT 10:38
PROVIDERS: ATTEND Internal Medicine Pulmonary Disease
DX: J98.4 Other disorders of lung (principal); J47.9 Bronchiectasis, uncomplicated; I70.0 Atherosclerosis of aorta; K44.9 Diaphragmatic hernia without obstruction or gangrene; I25.10 Atherosclerotic heart disease of native coronary artery without angina pectoris
CPT/HCPCS: 71250